=== PATIENT | male | born 1945 | race Caucasian/White ===

== ENCOUNTER 2016-09-23 11:36 | Inpatient (IN) ==
[2016-09-23] MEDS ORDERED: 0.9 % Sodium Chloride 1,000 ML IVC ONE ×2 (11:55→13:48)
--- NOTE | 2016-09-23 12:01 | Emergency Department Note ---
Disposition Clinical Impression: Diabetes mellitus, new onset, Renal insufficiency, Dehydration Hypotension Qualifiers: Hypotension type: unspecified hypotension type Qualified Code(s): I95.9 - Hypotension, unspecified Disposition: Admitted As Inpatient Condition: Good Time of Disposition: 14:26 General Adult HPI - General Chief complaint: ED Recheck/Abnormal Lab/Rx Stated complaint: High Blood Glucose from [facility] Time Seen by Provider: 09/23/16 11:47 Source: patient, family Mode of arrival: ambulatory Limitations: no limitations Nursing Notes Reviewed: Yes Vital Signs Reviewed: Yes - History of Present Illness HPI Narrative: 71-year-old male history of hypertension, hyperlipidemia, CAD s/p CABG presents to the ED with elevated blood sugar. Went to his primary care physician's office Dr. Martel in [place] and was directed to come here for further evaluation. Sugar was reportedly elevated at 500. Says are past year he has been a borderline diabetic with exercise and diet control. Reports over the past several days he has had increased thirst and polyuria. He is urinating every hour as well as some nocturia. Denies any recent illness, fever, cough, shortness of breath, nausea, vomiting or diarrhea. Does report over 20 pounds of weight loss in the past 3 months. Denies any recent travel. He reports he has been cutting down on his ice cream intake and sugars but will have some every so often. Pain Scale: 0 - Related Data Home Medications Medication Instructions Recorded Confirmed Aspirin [Lo-Dose Aspirin EC] 81 mg PO QAM 09/23/16 09/23/16 Clopidogrel [Plavix] 75 mg PO QAM 09/23/16 09/23/16 Isosorbide MONOnitrate (24 HR) 60 mg PO QAM 09/23/16 09/23/16 [Imdur] Lisinopril/Hydrochlorothiazide 1 tab PO QAM 09/23/16 09/23/16 [Zestoretic 20-25 mg Tablet] Metoprolol [Lopressor] 25 mg PO BID 09/23/16 09/23/16 Nitroglycerin [Nitrostat] 0.4 mg SL AD PRN 09/23/16 09/23/16 Omeprazole 20 mg PO QPM 09/23/16 09/23/16 Simvastatin [Zocor] 80 mg PO QPM 09/23/16 09/23/16 Tamsulosin HCl [Flomax] 0.4 mg PO QAM 09/23/16 09/23/16 Allergies Allergy/AdvReac Type Severity Reaction Status Date / Time peanut Allergy Cramping Verified 07/15/16 06:29 of the Muscles All systems ED: reviewed and negative except as stated. Constitutional: Denies: fever, chills Cardiovascular: Denies: chest pain Respiratory: Denies: cough, dyspnea Gastrointestinal: Denies: abdominal pain, nausea, vomiting, diarrhea Genitourinary: Reports: urgency, frequency, other (nocturia) Musculoskeletal: Denies: back pain, neck pain Integumentary: Denies: rash Endocrine: Reports: fatigue, polydipsia, polyuria Past Medical History - Past Medical History Attestation: Yes The following information was validated with the patient. Source: patient Medical history: Reports: coronary artery disease, GERD, hyperlipidemia, hypertension Psychiatric history: Reports: no psych history - Social History Smoking Status: Never smoker Smokeless Tobacco Status: No Alcohol use: Reports: none Drug use: Reports: none Physical Exam - General Limitations: no limitations General appearance: alert, in no apparent distress, obese - Head Head exam: atraumatic, normocephalic, normal inspection - Eye Eye exam: Present: normal appearance, PERRL, EOMI - ENT ENT exam: normal exam, normal oropharynx, mucous membranes moist - Neck Neck exam: Present: normal inspection, full ROM, trachea midline - Chest Chest inspection: Present: normal inspection, symmetric chest wall rise, other ( midline incision consistent with bypass) - Respiratory Respiratory exam: Present: normal lung sounds bilaterally. Absent: respiratory distress, wheezes - Cardiovascular Cardiovascular exam: Present: regular rate, normal rhythm, normal heart sounds - Abdominal Exam Abdominal exam: Present: soft (obese), Non-Tender, normal bowel sounds, scar ( midline from prior colectomy), other (Psoriasis). Absent: tenderness, distention, guarding, rebound, rigidity - Extremities Exam Extremities exam: Present: normal inspection, full ROM, normal capillary refill. Absent: tenderness, pedal edema, calf tenderness - Neurological Exam Neurological exam: Present: alert, oriented X3 - Psychiatric Psychiatric exam: Present: normal affect, normal mood Course Course Narrative: 71-year-old male presents with elevated blood sugar. Denies any recent illness. Reports fatigue, polydipsia and polyuria. Patient is afebrile here. He is tachycardic. He appears in no acute distress. Does report 20 pound weight loss in the past 3 months. Lungs are clear auscultation bilaterally. Heart's regular rate and rhythm. Abdomen is soft nontender nondistended. Check basic labs, troponin, EKG. Surname ketones ordered. We will give him fluids and likely admit. - Consultations Consultation #1: Spoke with on-call hospitalist sebastian Whittington to admit for new onset diabetes, hypotension, dehydration, renal insufficiency. No further orders at this time Time: 14:25 Vital Signs Temperature 97.5 F L 09/23/16 11:37 Pulse Rate 69 09/23/16 11:37 Respiratory Rate 18 09/23/16 11:37 Blood Pressure 91/60 09/23/16 11:37 O2 Sat by Pulse Oximetry 99 09/23/16 11:37 Temperature 97.5 F L 09/23/16 11:37 Pulse Rate 87 09/23/16 15:27 Respiratory Rate 16 09/23/16 15:51 Blood Pressure 95/61 09/23/16 15:51 O2 Sat by Pulse Oximetry 97 09/23/16 15:27 Oxygen Delivery Oxygen Delivery Room Air Medical Decision Making - MDM Narrative Medical decision making narrative: I examined this patient and my medical decision-making was reviewed with the PEDIATRIC NURSE/PA/Advanced Practice Nurse/Resident Physician. I agree with the documented findings, disposition and treatment plan as described except to the extent set forth below. Evaluate this patient with Dr. Ferro, I agree with his evaluation and management plan, supervisor production managing care of the patient at stay. Patient presented his family doctor's office today he has had been very dries been losing some weight. History of elevated A1c but not true diabetic. Today at the family practice office his sugar was over 500 according to the patient. Patient said he is very thirsty. Denies any other changes. His states he eats a lot of things he should not. Where checking labs here EKG most likely will need admission. Goals to make sure he is not in DKA. It does appear that he probably is new onset diabetes. 1246 hrs., patient's blood pressure is increasing with fluids. Lab called his blood sugar 773. Bicarbonate 22, beta hydroxybutyrate is positive. This is probably early DKA. I started him on insulin infusion, fluids. And wait for the rest of his labs and admit. He is in agreement with plan. Chest X-Ray 09/23/16 11:55 IMPRESSION: 1. Stable mild enlargement of the cardiac silhouette. No superimposed acute pulmonary abnormality. D/ / Lester Hoffman MD / Lester Hoffman MD Interpreting Provider: Lester Hoffman MD 1330 hrs.: Patient's blood pressures over 100 now. He is not acidotic on his VBG. His creatinine has elevated. dehydration as hypotension, dehydration, acute kidney injury, and new onset diabetes. Reglan bring him into the hospital. He is in agreement with this plan. Patient's critical care time Separately billable procedures is 30 minutes. - Medical Records Medical records reviewed: Yes I reviewed the patient's medical records. - Lab Data Lab results reviewed: Yes I reviewed the patient's lab results. Result diagrams: 09/23/16 12:16 09/23/16 12:16 Lab Results 09/23/16 09/23/16 09/23/16 Range/Units 12:16 12:16 12:16 WBC 14.0 H (4.3-11.1) K/mcL RBC 5.57 H (4.19-5.50) M/mcL Hgb 17.1 H (12.9-16.9) g/dL Hct 49.2 (37.5-50.1) % MCV 88.3 (83.0-100.0) fL MCH 30.7 (28.0-33.3) pg MCHC 34.8 (31.6-35.5) g/dL RDW 11.9 (11.5-14.5) % Plt Count 322 (140-400) K/mcL MPV 10.9 (9.4-12.4) fL Immature Gran % 0.5 (0-4) % Seg Neutrophils % 73.7 % Lymphocytes % 18.2 % Monocytes % 6.5 % Eosinophils % 0.5 % Basophils % 0.6 % Neutrophils # 10.3 H (1.6-8.9) K/mcL Lymphocytes # 2.6 (0.6-4.6) K/mcL Monocytes # 0.9 (0.0-1.3) K/mcL Eosinophils # 0.1 (0.0-0.6) K/mcL Basophils # 0.1 (0.0-0.2) K/mcL Immature Plt Fraction 5.9 (1.1-6.1) % VBG pH (7.32-7.42) pH Units VBG pCO2 (41-51) mmHg VBG pO2 (25-40) mmHg VBG HCO3 (21-27) mEq/L Sodium 127 L (136-145) mEq/L Potassium 4.1 (3.5-4.5) mEq/L Chloride 88 L (98-109) mEq/L Carbon Dioxide 22 (19-29) mEq/L BUN 25 (8-26) mg/dL Creatinine 2.17 H (0.72-1.25) mg/dL Est GFR ( Amer) 36 L (> 60) Est GFR (Non-Af Amer) 30 L (> 60) BUN/Creatinine Ratio 12 (6-26) Glucose 775 H* (70-99) mg/dL POC Glucose (58-89) Calculated Osmolality 306 H (280-300) Calcium 9.2 (8.6-10.8) mg/dL Total Bilirubin 1.4 H (0.2-1.2) mg/dL AST 18 (5-34) Units/L ALT 19 (0-55) Units/L Alkaline Phosphatase 90 (38-126) Units/L Troponin I 0.01 (0-0.03) ng/mL Serum Total Protein 6.8 (6.0-8.3) g/dL Albumin 3.8 (3.5-5.0) g/dL Globulin 3.0 (2.4-3.5) g/dL Albumin/Globulin Ratio 1.3 (1.1-2.2) Beta-Hydroxybutyric Acd > 2.00 H (0.02-0.27) mmol/L 09/23/16 09/23/16 09/23/16 Range/Units 13:13 14:14 15:06 WBC (4.3-11.1) K/mcL RBC (4.19-5.50) M/mcL Hgb (12.9-16.9) g/dL Hct (37.5-50.1) % MCV (83.0-100.0) fL MCH (28.0-33.3) pg MCHC (31.6-35.5) g/dL RDW (11.5-14.5) % Plt Count (140-400) K/mcL MPV (9.4-12.4) fL Immature Gran % (0-4) % Seg Neutrophils % % Lymphocytes % % Monocytes % % Eosinophils % % Basophils % % Neutrophils # (1.6-8.9) K/mcL Lymphocytes # (0.6-4.6) K/mcL Monocytes # (0.0-1.3) K/mcL Eosinophils # (0.0-0.6) K/mcL Basophils # (0.0-0.2) K/mcL Immature Plt Fraction (1.1-6.1) % VBG pH 7.35 (7.32-7.42) pH Units VBG pCO2 51 (41-51) mmHg VBG pO2 19 L (25-40) mmHg VBG HCO3 28.2 H (21-27) mEq/L Sodium (136-145) mEq/L Potassium (3.5-4.5) mEq/L Chloride (98-109) mEq/L Carbon Dioxide (19-29) mEq/L BUN (8-26) mg/dL Creatinine (0.72-1.25) mg/dL Est GFR ( Amer) (> 60) Est GFR (Non-Af Amer) (> 60) BUN/Creatinine Ratio (6-26) Glucose (70-99) mg/dL POC Glucose 557 H* 512 H* (58-89) Calculated Osmolality (280-300) Calcium (8.6-10.8) mg/dL Total Bilirubin (0.2-1.2) mg/dL AST (5-34) Units/L ALT (0-55) Units/L Alkaline Phosphatase (38-126) Units/L Troponin I (0-0.03) ng/mL Serum Total Protein (6.0-8.3) g/dL Albumin (3.5-5.0) g/dL Globulin (2.4-3.5) g/dL Albumin/Globulin Ratio (1.1-2.2) Beta-Hydroxybutyric Acd (0.02-0.27) mmol/L - Radiology Data Radiology results reviewed: Yes I reviewed the patient's radiology results. Chest X-Ray 09/23/16 11:55 IMPRESSION: 1. Stable mild enlargement of the cardiac silhouette. No superimposed acute pulmonary abnormality. D/ / Lester Hoffman MD / Lester Hoffman MD Interpreting Provider: Lester Hoffman MD - EKG Data EKG #1 EKG attestation: Yes I reviewed and interpreted this EKG. EKG results narrative: EKG performed 1158 sinus tachycardia 10 1 bpm with left axis deviation, there are no ST elevations or depressions, no T-wave inversions. Intervals are within normal limits MN interval 146 QRS 104 QT QTC 352 410. Compared to old EKG performed 05/12/2013 shows consistent findings normal sinus rhythm with similar ST T-wave changes. No acute ischemic changes.
[2016-09-23 12:25] LABS: Basophils # 0.1 K/mcL (0.0-0.2); Basophils % 0.6 %; Eosinophils # 0.1 K/mcL (0.0-0.6); Eosinophils % 0.5 %; Hematocrit 49.2 % (37.5-50.1); Hemoglobin 17.1 g/dL (12.9-16.9); Immature Granulocytes % 0.5 % (0-4); Immature Platelets 5.9 % (1.1-6.1); Lymphocytes # 2.6 K/mcL (0.6-4.6); Lymphocytes % 18.2 %; Mean Corpuscular HGB Conc 34.8 g/dL (31.6-35.5); Mean Corpuscular Hemoglobin 30.7 pg (28.0-33.3); Mean Corpuscular Volume 88.3 fL (83.0-100.0); Mean Platelet Volume 10.9 fL (9.4-12.4); Monocytes # 0.9 K/mcL (0.0-1.3); Monocytes % 6.5 %; Neutrophils # 10.3 K/mcL (1.6-8.9); Platelet Count 322 K/mcL (140-400); Red Blood Count 5.57 M/mcL (4.19-5.50); Red Cell Distribution Width 11.9 % (11.5-14.5); Segmented Neutrophils % 73.7 %
[2016-09-23 12:30] LABS: Beta-Hydroxybutyric Acid > 2.00 mmol/L (0.02-0.27)
[2016-09-23 12:38] LABS: Alanine Aminotransferase 19 Units/L (0-55); Albumin 3.8 g/dL (3.5-5.0); Albumin/Globulin Ratio 1.3 (1.1-2.2); Alkaline Phosphatase 90 Units/L (38-126); Aspartate Amino Transferase 18 Units/L (5-34); BUN/Creatinine Ratio 12 (6-26); Bilirubin,Total 1.4 mg/dL (0.2-1.2); Blood Urea Nitrogen 25 mg/dL (8-26); Calcium 9.2 mg/dL (8.6-10.8); Carbon Dioxide 22 mEq/L (19-29); Chloride 88 mEq/L (98-109); Osmolality,Calculated 306 (280-300); Potassium 4.1 mEq/L (3.5-4.5); Sodium 127 mEq/L (136-145); Total Protein 6.8 g/dL (6.0-8.3); eGFR For African Americans 36 (> 60); eGFR For Non-African Americans 30 (> 60)
[2016-09-23 12:39] LABS: Glucose 775 mg/dL (70-99)
[2016-09-23] MEDS ORDERED: *HR* Dextrose 50 % in Water (Syg) 50 ML SYRINGE IVP PRN ×2 (12:43→16:04)
[2016-09-23] MEDS ORDERED: Insulin Human Regular 100 UNIT in 0.9 % Sodium Chloride 100 ML IVC SCH ×2 (12:45→16:15)
[2016-09-23 13:20] LABS: VBG HCO3 28.2 mEq/L (21-27); VBG PH 7.35 pH Units (7.32-7.42)
--- NOTE | 2016-09-23 15:50 | Internal Med History&Physical ---
Date of Encounter: 09/23/16 Time of Encounter: 15:46 Assessment and Plan (1) Uncontrolled type 2 diabetes mellitus Current visit: Yes Status: Acute Blood glucose was 775 on presentation to the emergency department with evidence of severe dehydration and altered R abnormalities, however there is no convincing evidence for DKA as the venous pH is within normal range at 7.35 and sodium bicarbonate is 22, also within normal range. We will treat the patient with IV fluids and IV insulin drip per protocol. Once the blood glucose goes below 200 was started Levemir weight based and insulin sliding scale. Qualifiers: Diabetes mellitus complication status: without complication Diabetes mellitus fci insulin use: without fci use Qualified Code(s): E11.65 - Type 2 diabetes mellitus with hyperglycemia (2) Acute kidney injury Current visit: Yes Status: Acute This is secondary to severe dehydration with a creatinine of 2.25 increased for normal baseline of 1.0 and January 2016. We will treat him with IV fluids and monitor BUN and creatinine closely. Stop lisinopril. Avoid nephrotoxins. If kidney function returns to baseline no further workup is needed. (3) Essential hypertension Current visit: Yes Status: Acute Stop oral blood pressure medication due to hypotension secondary to dehydration. Once the blood pressure stabilizes we can reintroduce the metoprolol. I would hold the lisinopril due to to the acute kidney injury, I would also hold HCTZ on discharge. (4) Coronary artery disease Current visit: Yes Status: Acute Continue with aspirin Plavix and 4 and simvastatin. There is no chest pain, no evidence of ACS. His EKG is nondiagnostic however does have some nonspecific changes and therefore we will trend troponin. Qualifiers: Coronary Disease-Associated Artery/Lesion type: bypass graft [place] vs. transplanted heart: [place] heart Associated angina: without angina Qualified Code(s): I25.810 - Atherosclerosis of coronary artery bypass graft(s) without angina pectoris (5) DVT prophylaxis Current visit: Yes Status: Acute Will use subcutaneous heparin. (6) Diabetes mellitus, new onset Current visit: Yes Status: Acute telehealth nurse educator consult. Start diabetic diet. Insulin drip as above. (7) Dehydration Current visit: Yes Status: Acute Severe dehydration indicated by hemoconcentration with hemoglobin above 17 and elevated creatinine of 2.5 from a baseline of 1.0. We will treat this with IV fluids. He had received 2 L of normal saline and EGD will continue with normal saline at 200 mL per hour. Encouraged oral hydration. The patient is at high risk for morbidity mortality and complications due to treatment with insulin infusion which requires frequent blood glucose monitoring. Internal Medicine - H&P: HPI Chief complaint: High blood glucose Admitted From: Emergency Dept Plans for Post Hospital Care: Home History of present illness: Mr. Galarza is a 71 year old male with past medical history significant for hypertension coronary artery disease status post CABG who presented to the hospital for evaluation of high blood glucose. He states that for the last 4 weeks he has had progressive generalized weakness associated with increased thirst, increased urination and increased need for water intake. He reports a 25 pound unintentional weight loss over the last 3 months. She has been told by his primary care physician that he is borderline diabetic but his never taken any medication for it. Today he saw his family doctor and was told that his blood glucose was greater than 500 and he was referred for evaluation in the emergency department. 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 Denies chest pain and shortness of breath. Denies any recent upper respiratory tract infection. Workup done in the emergency department revealed a blood glucose of 775 and elevated creatinine of 2.25. He was given IV fluids and started on insulin drip. A 10 point review of systems was negative except as above. Past medical history as above Family history was reviewed and found to be noncontributory Past Med Surg Social Fam HX - Past Medical History Medical history: coronary artery disease, GERD, hyperlipidemia, hypertension Psychiatric history: no psych history - Social History Smoking Status: Never smoker Smokeless Tobacco Status: No Alcohol use: none Drug use: none Internal Medicine - H&P: Meds Aspirin [Lo-Dose Aspirin EC] 81 mg PO QAM 09/23/16 [History] Clopidogrel [Plavix] 75 mg PO QAM 09/23/16 [History] Isosorbide MONOnitrate (24 HR) [Imdur] 60 mg PO QAM 09/23/16 [History] Lisinopril/Hydrochlorothiazide [Zestoretic 20-25 mg Tablet] 1 tab PO QAM [History] Metoprolol [Lopressor] 25 mg PO BID 09/23/16 [History] Nitroglycerin [Nitrostat] 0.4 mg SL AD PRN 09/23/16 [History] Omeprazole 20 mg PO QPM 09/23/16 [History] Simvastatin [Zocor] 80 mg PO QPM 09/23/16 [History] Tamsulosin HCl [Flomax] 0.4 mg PO QAM 09/23/16 [History] Allergies peanut Allergy (Verified 07/15/16 06:29) Cramping of the Muscles All Systems PM: A 10-system review of systems was performed and is negative for pertinent findings except as documented above in the HPI. - Constitutional Vitals: Temp Pulse Resp BP Pulse Ox 97.5 F L 87 16 93/75 97 09/23/16 11:37 09/23/16 15:27 09/23/16 15:27 09/23/16 15:27 09/23/16 15:27 - Head Head exam: Present: atraumatic, normocephalic - Eye Eye exam: Present: PERRL, conjuntiva pink, sclera anicteric Pupils: Present: PERRL - Respiratory Respiratory exam: Present: CTAB. Absent: accessory muscle use, rales, rhonchi, wheezes - Cardiovascular Cardiovascular exam: Present: RRR, +S1, +S2. Absent: diastolic murmur, gallop, rubs, systolic murmur - GI/Abdominal GI/Abdominal exam: Present: normal bowel sounds, soft, no peritoneal signs. Absent: distended, tenderness - Extremities Exam Extremities exam: Present: warm, radial pulses palpable and symetrical. Absent : calf tenderness, cyanotic, pedal edema - Neurological Exam Neurological exam: Present: CN II-XII intact, oriented X3, no focal deficits. Absent: pronater drift, facial droop, speech deficit - Skin Additional comments: Psoriatic rash on the abdomen Internal Med - H&P Results - Labs CBC & Chem 7: 09/23/16 12:16 09/23/16 12:16 - EKG Data -: EKG Interpreted by Myself (Sinus tachycardia 1 1 bpm, left axis deviation, [address] depressions in V5 a) - EKG Data EKG comments: 09/23/16 15:51 Sinus tachycardia 1 10 bpm, left axis deviation, [address] depressions in V5 and V6, unchanged from March 2013.
[2016-09-23] MEDS ORDERED: Acetaminophen 325 MG TABLET PO PRN (16:01)
[2016-09-23] MEDS ORDERED: 0.9 % Sodium Chloride 1,000 ML ONE (16:13)
[2016-09-23] MEDS: 0.9 % Sodium Chloride 1,000 ML IVC SCH ×2 (16:25→21:09)
[2016-09-23 18:27] LABS: Bilirubin,Urine Negative (Negative); Blood,Urine Negative (Negative); Clarity,Urine Clear (Clear); Color,Urine Yellow (Yellow); Glucose,Urine (UA) >=1000 mg/dL (Normal); Ketones,Urine Negative (Negative); Leukocyte Esterase,Urine Negative (Negative); Nitrite,Urine Negative (Negative); Protein,Urine Negative (Neg-Trace); Specific Gravity,Urine > 1.030 (1.010-1.025); Urobilinogen,Urine Normal (Normal)
[2016-09-23] MEDS: *HR* Heparin 5,000 UNIT/ML VIAL SQ SCH (18:50)
--- NOTE | 2016-09-23 19:26 | Electrocardiograph Report ---
[place] [facility] Test Date: 2016-09-23 Pat Name: Asad Galarza Department: [id number] Room: 2NE27 Gender: M Youth Worker: : 1945 Requested By: David Dorsey Order Number: [id number] Reading MD: Kelly Bejarano DO Measurements Intervals [place] Rate: 101 P: 40 PA: 146 QRS: -38 QRSD: 104 T: 55 QT: 352 QTc: 410 Interpretive Statements SINUS TACHYCARDIA MARKED LEFT AXIS DEVIATION NONSPECIFIC ST \T\ T-WAVE ABNORMALITY Electronically Signed On 09-23-2016 19:25:10 EDT by Kelly Bejarano DO
[2016-09-24] MEDS: 0.9 % Sodium Chloride 1,000 ML IVC SCH (03:11)
[2016-09-24] MEDS: *HR* Heparin 5,000 UNIT/ML VIAL SQ SCH ×2 (05:12→17:28)
[2016-09-24 06:19] LABS: Basophils # 0.2 K/mcL (0.0-0.2); Basophils % 1.2 %; Eosinophils # 0.5 K/mcL (0.0-0.6); Eosinophils % 4.3 %; Hematocrit 42.9 % (37.5-50.1); Hemoglobin 15.2 g/dL (12.9-16.9); Immature Granulocytes % 0.3 % (0-4); Lymphocytes # 4.2 K/mcL (0.6-4.6); Lymphocytes % 34.3 %; Mean Corpuscular HGB Conc 35.4 g/dL (31.6-35.5); Mean Corpuscular Hemoglobin 31.7 pg (28.0-33.3); Mean Corpuscular Volume 89.6 fL (83.0-100.0); Mean Platelet Volume 10.9 fL (9.4-12.4); Monocytes # 0.9 K/mcL (0.0-1.3); Neutrophils # 6.5 K/mcL (1.6-8.9); Platelet Count 257 K/mcL (140-400); Red Blood Count 4.79 M/mcL (4.19-5.50); Segmented Neutrophils % 52.9 %
[2016-09-24 06:34] LABS: BUN/Creatinine Ratio 25 (6-26); Blood Urea Nitrogen 25 mg/dL (8-26); Carbon Dioxide 25 mEq/L (19-29); Glucose 82 mg/dL (70-99); Magnesium 1.7 mg/dL (1.6-2.6); Osmolality,Calculated 289 (280-300); eGFR For African Americans > 60 (> 60); eGFR For Non-African Americans > 60 (> 60)
[2016-09-24 06:37] LABS: Chloride 105 mEq/L (98-109); Potassium 2.9 mEq/L (3.5-4.5); Sodium 138 mEq/L (136-145)
[2016-09-24] MEDS ORDERED: Dextrose Gel 15 GM PO PRN ×2 (08:32)
[2016-09-24] MEDS ORDERED: *HR* Dextrose 50 % in Water (Syg) 50 ML SYRINGE IVP PRN (08:32)
[2016-09-24] MEDS ORDERED: D5% in Water 1,000 ML IVC PRN (08:32)
[2016-09-24] MEDS ORDERED: Potassium Chloride 40 MEQ, Lidocaine 1% 2 ML in D5% in Water 500 ML IVPB ONE (08:47)
--- NOTE | 2016-09-24 08:56 | Internal Med Progress Note ---
<Ron Rubio - Last Filed: 09/24/16 14:25> Date of Encounter: 09/23/16 Time of Encounter: 08:56 - Assessment and plan (1) Uncontrolled type 2 diabetes mellitus Current Visit: Yes Status: Acute Assessment and plan: Patient with reported history of prediabetic glucose levels for many years controlled with exercise and diet was seen at his PCP and determined to have elevated blood sugars in the 500s. Patient presented with complaints of polyuria, nocturia, polydypsia, and weight loss. Patient and report patient has been eating large bowls of ice cream and most recently large bowls of fruit salad over the past week. In addition, they recently had a homemade pie that was distastefully too sweet. Patient was found to have elevated blood glucose of 775 upon arrival to the ED along with evidence of severe dehydration. VBG revealed pH 7.35, pCO2 51, bicarb 22, beta hydroxybutyrate >2.0. Patient was treated with IVF and IV insulin drip per protocol. Blood sugars have been controlled between mid 80s to <200 for the past couple hours. A1C is 13.9 Patient to transition to levemir based on weight dosing and insulin sliding scale. Patient refuses insulin therapy as an outpatient and would like to try oral medications. Counseled patient and family regarding diabetes for greater than 15 minutes. Brewery Representative consulted Continue Diabetic diet Will start appropriate oral medications prior to discharge. C-peptide ordered. Qualifiers: Diabetes mellitus complication status: without complication Diabetes mellitus shelter insulin use: without exterminator use Qualified Code(s): E11.65 - Type 2 diabetes mellitus with hyperglycemia (2) Dehydration Current Visit: Yes Status: Acute Assessment and plan: Resolved. Likely secondary to uncontrolled diabetes complications. (3) Acute kidney injury Current Visit: Yes Status: Resolved Assessment and plan: Cr elevated at 2.17 upon arrival to ED. Patient received IVF and repeat labs this morning revealed Cr 1.01 KRISTINE likely secondary to dehydration in the setting of uncontrolled type II diabetes. Continue to monitor. Okay to resume home bp medications including lisinopril. (4) Hypokalemia Current Visit: Yes Status: Acute Assessment and plan: Potassium this morning at 2.9. Had noted blood sugar of 775 and was started on IVF and Insulin drip overnight, now discontinued. Hypokalemia secondary to intracellular shifting. 40mEq IV and 40mEq PO ordered. Continue to monitor and replete as necessary. (5) Psoriasis Current Visit: Yes Status: Acute Assessment and plan: History of psoriasis. Noted rash over elbows, abdomen, and lower extremities. Patient reports he was prescribed over 30 years ago some topical steroid medications. Currently only using OTC regular lotion, no steroid creams, no oral steroids. (6) Essential hypertension Current Visit: Yes Status: Acute Assessment and plan: Patient was hypotensive upon arrival to the ED. Bp at 121/83 currently after IVF and diabetic diet. Resume home meds for chronic disease management. (7) Coronary artery disease Current Visit: Yes Status: Acute Assessment and plan: Patient with a history of CAD s/p CABG. Continue home medications for chronic disease management. Qualifiers: Coronary Disease-Associated Artery/Lesion type: bypass graft [place] vs. transplanted heart: [place] heart Associated angina: without angina Qualified Code(s): I25.810 - Atherosclerosis of coronary artery bypass graft(s) without angina pectoris (8) DVT prophylaxis Current Visit: Yes Status: Acute Assessment and plan: Heparin sq for dvt ppx - Subjective Interval history: Patient is frustrated this morning because the staff and physicians tell him different things about his plan of care and he feels this admission because of his hyperglycemia is ridiculous. Patient otherwise has no new complaints and reports that he has only urinated twice since admission and does not feel thirsty like he did when he initially arrived. Patient reports hearing loss and does not have his hearing aids with him. Patient denies fevers, chills, sweats, headaches, changes in vision, nausea, vomiting, excessive thirsty, chest pain, shortness of breath, abdominal pain, polyuria, nocturia, changes in bowels, weakness, or loss of sensation. - Constitutional Vitals: Temp Pulse Resp BP Pulse Ox 97.7 F 73 16 121/83 94 L 09/24/16 07:00 09/24/16 07:00 09/24/16 07:00 09/24/16 07:00 09/24/16 07:00 General appearance: Present: A&O X 3, no acute distress, answers questions appropriately - Head Head exam: Present: atraumatic, normal inspection, normocephalic - Eye Eye exam: Present: normal appearance - ENT ENT exam: Present: mucous membranes moist, normal exam, normal external ear exam , normal oropharynx - Neck Neck exam general surgery: Present: full ROM, normal inspection, supple, trachea midline. Absent: tenderness - Respiratory Respiratory exam: Present: CTAB. Absent: rales, rhonchi, wheezes - Cardiovascular Cardiovascular exam: Present: RRR, +S1, +S2 - GI/Abdominal GI/Abdominal exam: Present: normal bowel sounds, soft. Absent: distended, guarding, tenderness - Extremities Exam Extremities exam: Present: full ROM, warm. Absent: pedal edema, tenderness - Neurological Exam Neurological exam: Present: alert, normal gait, oriented X3, no focal deficits, strengths equal and symetr throughout. Absent: facial droop, speech deficit - Skin Skin exam: Present: dry, rash (psoriatic rash noted over elbows, abdomen, and lower extremities.), warm Internal Medicine: Result - Labs CBC & Chem 7: 09/24/16 05:41 09/24/16 05:41 Labs: Short CBC 09/24/16 Range/Units 05:41 WBC 12.3 H (4.3-11.1) K/mcL Hgb 15.2 D (12.9-16.9) g/dL Hct 42.9 (37.5-50.1) % Plt Count 257 (140-400) K/mcL Neutrophils # 6.5 (1.6-8.9) K/mcL BMP 09/24/16 05:41 Sodium 138 D Potassium 2.9 L D Chloride 105 D Carbon Dioxide 25 BUN 25 Creatinine 1.01 D Glucose 82 Calcium 8.0 L Cardiac Enzymes 09/23/16 09/23/16 09/24/16 Range/Units 18:42 21:58 05:41 Troponin I 0.00 0.00 0.01 (0-0.03) ng/mL Urine 09/23/16 Range/Units 18:18 Urine Color Yellow (Yellow) Urine Clarity Clear (Clear) Urine pH 6.0 (5.0-8.0) pH Units Ur Specific Gunter > 1.030 H (1.010-1.025) Urine Protein Negative (Neg-Trace) mg/dL Urine Glucose (UA) >=1000 H (Normal) mg/dL Consult Discharge Plan - Plan Referrals: Dina Martel MD [Primary Care Provider] - <Dale Trejo P - Last Filed: 09/24/16 17:51> Date of Encounter: 09/23/16 - Constitutional Vitals: Temp Pulse Resp BP Pulse Ox 97.8 F 83 18 115/85 96 09/24/16 16:55 09/24/16 16:55 09/24/16 16:55 09/24/16 16:55 09/24/16 16:55 Internal Medicine: Result - Labs CBC & Chem 7: 09/24/16 05:41 09/24/16 14:17 Labs: Short CBC 09/24/16 Range/Units 05:41 WBC 12.3 H (4.3-11.1) K/mcL Hgb 15.2 D (12.9-16.9) g/dL Hct 42.9 (37.5-50.1) % Plt Count 257 (140-400) K/mcL Neutrophils # 6.5 (1.6-8.9) K/mcL BMP 09/24/16 09/24/16 05:41 14:17 Sodium 138 D Potassium 2.9 L D 3.6 Chloride 105 D Carbon Dioxide 25 BUN 25 Creatinine 1.01 D Glucose 82 Calcium 8.0 L Cardiac Enzymes 09/23/16 09/23/16 09/24/16 Range/Units 18:42 21:58 05:41 Troponin I 0.00 0.00 0.01 (0-0.03) ng/mL Urine 09/23/16 Range/Units 18:18 Urine Color Yellow (Yellow) Urine Clarity Clear (Clear) Urine pH 6.0 (5.0-8.0) pH Units Ur Specific Gunter > 1.030 H (1.010-1.025) Urine Protein Negative (Neg-Trace) mg/dL Urine Glucose (UA) >=1000 H (Normal) mg/dL - Attending Attestation I examined this patient and my medical decision-making was reviewed with the HOGSHEAD OPENER/PA/Advanced Practice Nurse/Resident Physician. I agree with the documented findings, disposition and treatment plan as described except to the extent set forth below.
[2016-09-24] MEDS: Aspirin Enteric Coated 81 MG Tablet PO SCH (09:08)
[2016-09-24] MEDS: Isosorbide MONOnitrate (24 HR) 60 MG TAB.ER.24H PO SCH (09:09)
[2016-09-24 09:50] LABS: Hemoglobin A1C 13.9 %
[2016-09-24] MEDS: Insulin LISPRO 300 UNITS/3 ML VIAL SQ SCH ×2 (11:31→17:30)
[2016-09-24] MEDS ORDERED: Insulin LISPRO 300 UNITS/3 ML VIAL SQ SCH (21:00)
[2016-09-25] MEDS: *HR* Heparin 5,000 UNIT/ML VIAL SQ SCH (05:30)
[2016-09-25 07:07] LABS: BUN/Creatinine Ratio 14 (6-26); Blood Urea Nitrogen 16 mg/dL (8-26); Calcium 8.3 mg/dL (8.6-10.8); Carbon Dioxide 22 mEq/L (19-29); Chloride 107 mEq/L (98-109); Glucose 256 mg/dL (70-99); Osmolality,Calculated 288 (280-300); Sodium 134 mEq/L (136-145); eGFR For African Americans > 60 (> 60); eGFR For Non-African Americans > 60 (> 60)
[2016-09-25] MEDS: Isosorbide MONOnitrate (24 HR) 60 MG TAB.ER.24H PO SCH (09:20)
[2016-09-25] MEDS: Insulin LISPRO 300 UNITS/3 ML VIAL SQ SCH ×2 (09:21→13:40)
[2016-09-25] MEDS: Aspirin Enteric Coated 81 MG Tablet PO SCH (09:21)
--- NOTE | 2016-09-25 10:33 | Discharge Summary ---
Addendum entered and electronically signed by Ron Rubio DO 15:45: Additional Instructions Addendum: (copy to be printed and sent with patient on discharge) Follow up with your primary care physician within the next 7 days regarding this hospital stay/diabetes. You have been sent home with medications including Novolin 70/30 and Metformin. Also sent home with script for a glucometer, strips for testing, lancets, and insulin syringes/needles. Your insulin requirement for the past 24 hours was 30 "Units" to control your blood sugars modestly. This is not your goal blood sugar level, you will eventually need adjustments to the total insulin requirement per day. Inject Novolin 10 "Units" before breakfast and Novolin 10 Units before dinner. Take Metformin twice a day. "Units" is not the same as "mL" or milliliters. If you inject 10 mL of insulin with the prescribed insulin, you will develop hypoglycemia which can be a medical emergency. Remember to calculate based on "Units". You have been counseled by a service girl regarding proper diet to follow to control your blood sugars. Check your blood sugar levels for the next 5-7 days and write them in a journal for your Primary care physician to review at your next visit. Check your levels once in the morning when you first wake up before breakfast, 2 hours after breakfast, 2 hours after lunch, 2 hours after dinner, and just prior to going to bed. It is important to keep a record of these levels to determine proper amounts of insulin and prevent hypoglycemic episodes. Hypoglycemia presents as the following: Dizziness, shakiness, hunger, headaches , irritability, palpitations, and in severe cases confusion and possibly coma. Seek medical care if you develop these symptoms or have other concerns. We have attempted to send you home with scripts for Levemir and Humalog/Novolog ; however, your insurance classify these insulins as Tier 3, meaning that they are quite expensive. We have decided to send you home with Novolin 70/30 as a compromise for the cost of medication vs benefits and necessity of insulin. Original Note: <Ron Rubio - Last Filed: 09/25/16 11:16> Date of Encounter: 09/23/16 Time of Encounter: 10:28 - Discharge Diagnosis (1) Uncontrolled type 2 diabetes mellitus Priority: Primary Status: Acute Comments: Patient with reported history of prediabetic glucose levels for many years controlled with exercise and diet was seen at his PCP and determined to have elevated blood sugars in the 500s. Patient presented with complaints of polyuria, nocturia, polydypsia, and weight loss. Patient and report patient has been eating large bowls of ice cream and most recently large bowls of fruit salad over the past week. In addition, they recently had a homemade pie that was distastefully too sweet. Patient was found to have elevated blood glucose of 775 upon arrival to the ED along with evidence of severe dehydration. VBG revealed pH 7.35, pCO2 51, bicarb 22, beta hydroxybutyrate >2.0. Patient was treated with IVF and IV insulin drip per protocol. Blood sugars between 149 - 256 past 24 hours. Required 12 Units with lunch, 10 Units with dinner, no insulin at night, and 8 Units with breakfast. Total daily requirement for modest control = 30 Units. A1C was determined to be 13.9, approximately 352 average glucose Patient seen by nutrition yesterday. Counseled the patient and family regarding diabetes and medications for greater than 15 minutes. Music Mixer consulted to discuss proper use of insulin. Continue diabetic diet. Plan to discharge with metformin 500 bid, Levemir (long) 15 Units at night, and Humalog (short) 5 Units with meals three times a day. Patient to follow up with PCP within the next 7 days regarding this hospital stay. Scripts for glucometer, strips, lancets also sent. Qualifiers: Diabetes mellitus complication status: without complication Diabetes mellitus detention insulin use: without detention use Qualified Code(s): E11.65 - Type 2 diabetes mellitus with hyperglycemia (2) Dehydration Priority: Primary Status: Resolved Comments: Resolved. Likely secondary to uncontrolled diabetes complications. (3) Acute kidney injury Priority: Primary Status: Resolved Comments: Resolved. Cr elevated at 2.17 upon arrival to ED. Cr 1.11 this morning. (4) Hypokalemia Priority: Primary Status: Acute Comments: Resolved. (5) Psoriasis Priority: Secondary Status: Chronic Comments: History of psoriasis. Noted rash over elbows, abdomen, and lower extremities. Patient reports he was prescribed over 30 years ago some topical steroid medications. Currently only using OTC regular lotion, no steroid creams, no oral steroids. (6) Essential hypertension Priority: Secondary Status: Chronic Comments: atient was hypotensive upon arrival to the ED. Bp at 125/87 currently. Continue home meds for chronic disease management. (7) Coronary artery disease Priority: Primary Status: Chronic Comments: Continue home meds for chronic disease management. Qualifiers: Coronary Disease-Associated Artery/Lesion type: bypass graft [place] vs. transplanted heart: [place] heart Associated angina: without angina Qualified Code(s): I25.810 - Atherosclerosis of coronary artery bypass graft(s) without angina pectoris - Discharge Medications Prescriptions: Insulin DETEMIR [Levemir Flextouch] 100 unit SQ HS #4 [email or web address] Insulin LISPRO [Humalog Kwikpen U-100] 100 unit SQ TIDAC #3 ml Metformin [Glucophage] 500 mg PO BIDWM #60 tablet Home Medications: Aspirin [Lo-Dose Aspirin EC] 81 mg PO QAM 09/23/16 [History] Clopidogrel [Plavix] 75 mg PO QAM 09/23/16 [History] Isosorbide MONOnitrate (24 HR) [Imdur] 60 mg PO QAM 09/23/16 [History] Lisinopril/Hydrochlorothiazide [Zestoretic 20-25 mg Tablet] 1 tab PO QAM [History] Metoprolol [Lopressor] 25 mg PO BID 09/23/16 [History] Nitroglycerin [Nitrostat] 0.4 mg SL AD PRN 09/23/16 [History] Omeprazole 20 mg PO QPM 09/23/16 [History] Simvastatin [Zocor] 80 mg PO QPM 09/23/16 [History] Tamsulosin HCl [Flomax] 0.4 mg PO QAM 09/23/16 [History] Insulin DETEMIR [Levemir Flextouch] 100 unit SQ HS #4 insuln.pen 09/25/16 [Rx] Insulin LISPRO [Humalog Kwikpen U-100] 100 unit SQ TIDAC #3 ml 09/25/16 [Rx] Metformin [Glucophage] 500 mg PO BIDWM #60 tablet 09/25/16 [Rx] Allergies/Adverse Reactions: Allergies peanut Allergy (Verified 07/15/16 06:29) Cramping of the Muscles Date of admission: 09/23/16 16:01 Primary care physician: Dina Martel, Consults: 09/23/16 16:55 Consult to Nutrition [CONS] Routine Comment: Consulting Provider: NUTRITION Reason for Dietary Consult: PO Supplementation 09/25/16 10:08 Consult to Team Lead [CONS] Routine Comment: behavioral school counselors patient about medications, insulin on d/c Discharging clinician: Dale Trejo (Ron Rubio) Anticipated date of discharge: 09/25/16 - Patient Status Disposition: Home, Self-Care Condition: Good Functional capacity at discharge: independent ambulation Overall status at discharge: patient is progressing back to baseline - Discharge Instructions Instructions: Diabetes Mellitus Type 2 in Adults (DC), Diabetic Hyperglycemia ( DC) Follow Up With: Dina Martel MD [Primary Care Provider] - (Uncontrolled type II dm. Sent home with metformin 500mg bid, levemir 15U qhs, humalog 5U actid, glucometer, strips, and lancets.) Additional Instructions: Follow up with your primary care physician within the next 7 days regarding this hospital stay/diabetes. You have been sent home with medications including Levemir, Humalog, and Metformin. Also sent home with script for a glucometer, strips for testing, and lancets. Your insulin requirement for the past 24 hours was 30 "Units" to control your blood sugars modestly. This is not your goal blood sugar level, you will eventually need adjustments to the total insulin requirement per day. Inject Levemir 15 "Units" before bed time once a day. Inject Humalog 5 "Units" before meals three times a day. Take metformin twice a day. "Units" is not the same as "mL" or milliliters. If you inject 15 mL of insulin with the prescribed insulin pens, you will develop hypoglycemia which can be a medical emergency. Remember to calculate based on "Units". You have been counseled by a service girl regarding proper diet to follow to control your blood sugars. Check your blood sugar levels for the next 5-7 days and write them in a journal for your Primary care physician to review at your next visit. Check your levels once in the morning when you first wake up before breakfast, 2 hours after breakfast, 2 hours after lunch, 2 hours after dinner, and just prior to going to bed. It is important to keep a record of these levels to determine proper amounts of insulin and prevent hypoglycemic episodes. Hypoglycemia presents as the following: Dizziness, shakiness, hunger, headaches , irritability, palpitations, and in severe cases confusion and possibly coma. Seek medical care if you develop these symptoms or have other concerns. - Diet and Activity Activity: resume usual activities as tolerated Diet: diabetic diet, low fat, low cholesterol, low salt diet Interval History: Patient reports doing well overnight, no new complaints. Patient denies fevers , chills, sweats, headaches, lightheadedness, dizziness, nausea, vomiting, chest pain, shortness of breath, abdominal pain, changes in bowels or bladder, polydypsia, polyuria, nocturia, weakness, or loss of sensation. Hospital course: Mr. Galarza is a 71 year old male with history of hypertension, CAD s/p CABG , hyperlipidemia, and psoriasis who presented to the ED due to elevated blood sugars and polyuria, nocturia, polydypsia, and weight loss. Patient was determine to have elevated blood sugar of 775 upon arrival and elevated Cr of 2.25. Labs also revealed elevated beta hydorxybutyrate acid, elevated WBC of 14.0, and essentially normal VBG. Patient was started on IV fluids and IV insulin drip, then switched to sliding scale insulin. Patient tolerated diabetic diet the following morning when blood sugars were between upper 80s and <200. A1C was 13.9. C-peptide was ordered. Nutrition was consulted and clinical trial educator was consulted to discuss proper use of insulin medication. Patient required a total of 30 Units over the past 24 hours for modest control of sugars. Blood glucose was 256 on lab draw this morning. Patient to be discharged with metformin 500mg bid, long acting insulin 15 Units at night, and short acting insuling 5 Units with meals three times a day. Patient also discharge with script for glucometer, strips, and lancets. Patient to follow up with Primary Care Physician regarding this hospital stay/type II diabetes. - Time Spent with Patient Total time spent providing and/or coordinating discharge services: Less than 30 minutes - Constitutional Vitals: Temp Pulse Resp BP Pulse Ox 97.8 F 81 16 125/87 97 09/25/16 07:24 09/25/16 07:24 09/25/16 07:24 09/25/16 07:24 09/25/16 08:00 General appearance: Present: cooperative, A&O X 3, no acute distress, answers questions appropriately - Head Head exam: Present: atraumatic, normal inspection, normocephalic - Eye Eye exam: Present: normal appearance - ENT ENT exam: Present: mucous membranes moist, normal exam, normal external ear exam , normal oropharynx - Neck Neck exam general surgery: Present: full ROM, normal inspection, supple, trachea midline. Absent: tenderness - Respiratory Respiratory exam: Present: CTAB. Absent: rales, rhonchi, wheezes - Cardiovascular Cardiovascular exam: Present: RRR, +S1, +S2 - GI/Abdominal GI/Abdominal exam: Present: normal bowel sounds, soft. Absent: distended, guarding, tenderness - Extremities Exam Extremities exam: Present: full ROM, warm. Absent: pedal edema, tenderness - Neurological Exam Neurological exam: Present: alert, normal gait, oriented X3, no focal deficits, strengths equal and symetr throughout. Absent: facial droop, speech deficit - Skin Skin exam: Present: dry, intact, normal color, rash (psoriatic rash noted over elbows, abdomen, and lower extremities.), warm <Dale Trejo P - Last Filed: 09/25/16 17:41> Date of Encounter: 09/25/16 Date of admission: 09/23/16 16:01 Primary care physician: Dina Martel, Consults: 09/23/16 16:55 Consult to Nutrition [CONS] Routine Comment: Consulting Provider: NUTRITION Reason for Dietary Consult: PO Supplementation 09/25/16 10:08 Consult to Team Lead [CONS] Routine Comment: behavioral school counselors patient about medications, insulin on d/c 09/25/16 14:13 Consult to Line Server [CONS] Routine Reason for SW Consult: Check rx costs Hospital course: Mr. Galarza is a 71 year old male - Time Spent with Patient Total time spent providing and/or coordinating discharge services: - Constitutional Vitals: Temp Pulse Resp BP Pulse Ox 98.2 F 75 18 120/80 97 09/25/16 11:40 09/25/16 11:40 09/25/16 11:40 09/25/16 11:40 09/25/16 11:40 - Attending Attestation I examined this patient and my medical decision-making was reviewed with the GOVERNMENT OPERATIONS CONSULTANT/PA/Advanced Practice Nurse/Resident Physician. I agree with the documented findings, disposition and treatment plan as described except to the extent set forth below.
[2016-09-25 11:44] VITALS: BP 120/80
[2016-09-25] MEDS ORDERED: *HR* Metformin 500 MG TABLET PO SCH ×2 (12:18→17:00)
[2016-09-26] MEDS ORDERED: *HR* Metformin 500 MG TABLET PO ONE (10:21)
== END 2016-09-25 16:30 | disposition home or self-care (01) | DRG 638 ==
LOC: 2NENU 11:36 → EMEROO 11:36 → 2NENU 16:03
PROVIDERS: ADMIT Internal Medicine; ATTEND Internal Medicine

== ENCOUNTER 2019-01-03 09:56 | Inpatient (IN) ==
[2019-01-03] MEDS ORDERED: *HR* Promethazine 25 MG/ML VIAL IVP PRN (13:27)
[2019-01-03] MEDS ORDERED: Ondansetron 4 MG/2 ML VIAL IVP PRN (13:27)
[2019-01-03] MEDS ORDERED: Dextrose Gel 15 GM/37.5 ML TUBE PO PRN ×2 (14:13)
[2019-01-03] MEDS ORDERED: D5% in Water 1,000 ML IVC PRN (14:13)
[2019-01-03] MEDS ORDERED: *HR* Dextrose 50 % in Water (Syg) 50 ML SYRINGE IVP PRN (14:13)
[2019-01-03] MEDS: Pantoprazole 40 MG VIAL IVP SCH (14:29)
[2019-01-03 14:47] LABS: Basophils # 0.1 K/mcL (0.0-0.2); Basophils % 0.4 %; Eosinophils # 0.2 K/mcL (0.0-0.6); Eosinophils % 1.1 %; Hematocrit 36.9 % (37.5-50.1); Hemoglobin 11.5 g/dL (12.9-16.9); Immature Granulocytes % 0.5 % (0-4); Lymphocytes # 1.1 K/mcL (0.6-4.6); Lymphocytes % 7.5 %; Mean Corpuscular HGB Conc 31.2 g/dL (31.6-35.5); Mean Corpuscular Hemoglobin 24.1 pg (28.0-33.3); Mean Corpuscular Volume 77.2 fL (83.0-100.0); Mean Platelet Volume 8.8 fL (9.4-12.4); Monocytes # 1.4 K/mcL (0.0-1.3); Neutrophils # 11.5 K/mcL (1.6-8.9); Platelet Count 547 K/mcL (140-400); Red Blood Count 4.78 M/mcL (4.19-5.50); Red Cell Distribution Width 15.5 % (11.5-14.5); Segmented Neutrophils % 80.5 %; White Blood Count 14.3 K/mcL (4.3-11.1)
[2019-01-03 14:54] LABS: INR 1.5; Prothrombin Time 16.5 Seconds (9.4-12.1)
[2019-01-03 15:07] LABS: BUN/Creatinine Ratio 15 (6-26); Blood Urea Nitrogen 16 mg/dL (8-23); Calcium 8.6 mg/dL (8.6-10.3); Carbon Dioxide 30 mEq/L (23-29); Chloride 98 mEq/L (98-107); Glucose 139 mg/dL (70-105); Osmolality,Calculated 287 (280-300); Potassium 2.9 mEq/L (3.5-5.1); Sodium 137 mEq/L (136-145); eGFR For African Americans > 60 (> 60); eGFR For Non-African Americans > 60 (> 60)
[2019-01-03 15:08] LABS: Albumin 3.3 g/dL (3.5-5.7); Albumin/Globulin Ratio 0.9 (1.1-2.2); Bilirubin,Direct 0.1 mg/dL (0.0-0.2); Bilirubin,Indirect 0.3 mg/dL (0.0-1.2); Bilirubin,Total 0.4 mg/dL (0.3-1.0); Globulin 3.6 g/dL (2.4-3.5); Magnesium 1.5 mg/dL (1.6-2.6); Phosphorous 1.4 mg/dL (2.7-4.5); Total Protein 6.9 g/dL (6.4-8.9)
[2019-01-03] MEDS ORDERED: Potassium Chloride 40 MEQ, Lidocaine 1% 2 ML in D5% in Water 500 ML IVPB ONE (15:46)
[2019-01-03] MEDS ORDERED: Potassium Phosphate 44 MEQ in 0.9 % Sodium Chloride 250 ML IVPB ONE ×2 (15:47→19:45)
[2019-01-03] MEDS ORDERED: Fluconazole 400 MG/200 ML 400 MG/200 ML BAG IVPB ONE (15:57)
[2019-01-03] MEDS ORDERED: Piperacillin/Tazobactam 3.375 GM in 0.9 % Sodium Chloride Mini Bag 100 ML IVPB SCH (16:00)
[2019-01-03] MEDS: *HR* Metoprolol 5 MG/5 ML VIAL IVP SCH ×3 (17:10→23:42)
[2019-01-03] MEDS: Insulin LISPRO 300 UNITS/3 ML VIAL SQ SCH (18:10)
[2019-01-03] MEDS: Nystatin SUSP 5 ML UD.LIQ PO SCH ×2 (20:57)
[2019-01-03] MEDS: Acetaminophen IV 1,000 MG/100 ML INFUS..BTL IV PRN (21:54)
[2019-01-04] MEDS: Insulin LISPRO 300 UNITS/3 ML VIAL SQ SCH ×4 (00:11→22:09)
[2019-01-04] MEDS: Piperacillin/Tazobactam 3.375 GM in 0.9 % Sodium Chloride Mini Bag 100 ML IVPB SCH ×3 (01:00→16:39)
[2019-01-04] MEDS: *HR* Metoprolol 5 MG/5 ML VIAL IVP SCH ×3 (05:51→22:09)
[2019-01-04] MEDS: Acetaminophen IV 1,000 MG/100 ML INFUS..BTL IV PRN (05:51)
[2019-01-04 06:12] LABS: Bilirubin,Urine Negative (Negative); Blood,Urine Negative (Negative); Clarity,Urine Clear (Clear); Color,Urine Yellow (Yellow); Glucose,Urine (UA) Normal (Normal); Ketones,Urine Negative (Negative); Leukocyte Esterase,Urine Negative (Negative); Nitrite,Urine Negative (Negative); Protein,Urine 30 mg/dL (Neg-Trace); Specific Gravity,Urine > 1.030 (1.010-1.025); Urobilinogen,Urine Normal (Normal)
[2019-01-04 06:15] LABS: Bacteria,Urine None Seen per hpf (None-Few); Hyaline Casts,Urine None Seen per lpf (None-Few); Squamous Epithelial Cell,Urine Many per lpf (None-Few)
[2019-01-04] MEDS ORDERED: Fluconazole 200 MG/100 ML 200 MG/100 ML BAG IVPB SCH (09:00)
[2019-01-04] MEDS: Pantoprazole 40 MG VIAL IVP SCH (09:12)
[2019-01-04] MEDS: Nystatin SUSP 5 ML UD.LIQ PO SCH ×4 (09:12→23:20)
[2019-01-04 12:03] LABS: Basophils # 0.1 K/mcL (0.0-0.2); Basophils % 0.4 %; Eosinophils # 0.1 K/mcL (0.0-0.6); Eosinophils % 0.7 %; Hematocrit 34.9 % (37.5-50.1); Hemoglobin 10.9 g/dL (12.9-16.9); Immature Granulocytes % 0.6 % (0-4); Lymphocytes # 1.2 K/mcL (0.6-4.6); Mean Corpuscular HGB Conc 31.2 g/dL (31.6-35.5); Mean Corpuscular Hemoglobin 24.2 pg (28.0-33.3); Mean Corpuscular Volume 77.4 fL (83.0-100.0); Mean Platelet Volume 8.5 fL (9.4-12.4); Monocytes # 1.8 K/mcL (0.0-1.3); Monocytes % 10.8 %; Neutrophils # 13.6 K/mcL (1.6-8.9); Platelet Count 438 K/mcL (140-400); Red Blood Count 4.51 M/mcL (4.19-5.50); Red Cell Distribution Width 15.7 % (11.5-14.5); Segmented Neutrophils % 80.5 %; White Blood Count 16.9 K/mcL (4.3-11.1)
[2019-01-04 12:10] LABS: INR 1.5; Prothrombin Time 16.5 Seconds (9.4-12.1)
[2019-01-04 12:23] LABS: BUN/Creatinine Ratio 13 (6-26); Blood Urea Nitrogen 14 mg/dL (8-23); Calcium 8.2 mg/dL (8.6-10.3); Carbon Dioxide 29 mEq/L (23-29); Chloride 98 mEq/L (98-107); Glucose 127 mg/dL (70-105); Magnesium 1.7 mg/dL (1.6-2.6); Osmolality,Calculated 284 (280-300); Phosphorous 2.3 mg/dL (2.7-4.5); Potassium 3.1 mEq/L (3.5-5.1); Sodium 136 mEq/L (136-145); eGFR For African Americans > 60 (> 60); eGFR For Non-African Americans > 60 (> 60)
[2019-01-04] MEDS ORDERED: Potassium Phosphate 44 MEQ in 0.9 % Sodium Chloride 250 ML IVPB ONE (13:35)
[2019-01-04] MEDS ORDERED: Potassium Chloride 40 MEQ, Lidocaine 1% 2 ML in D5% in Water 500 ML IVPB ONE (13:36)
[2019-01-04] MEDS ORDERED: 0.9 % Sodium Chloride 1,000 ML IVC SCH (15:15)
[2019-01-04] MEDS ORDERED: *HR* Propofol 200 MG/20 ML VIAL IVP ONE (17:40)
[2019-01-04] MEDS ORDERED: *HR* FentaNYL (PF) 100 MCG/2 ML VIAL ONE ×3 (17:40→18:48)
[2019-01-04] MEDS ORDERED: Lidocaine -MPF 2% 2 ML VIAL ONE (17:41)
[2019-01-04] MEDS ORDERED: Lidocaine Jelly 6ml 1 APPL/6 ML JEL.PF.APP ONE (17:50)
[2019-01-04] MEDS ORDERED: *HR* Metoprolol 5 MG/5 ML VIAL IVP ONE (18:44)
[2019-01-04] MEDS ORDERED: Ondansetron 4 MG/2 ML VIAL ONE (18:53)
[2019-01-04] MEDS ORDERED: Acetaminophen IV 1,000 MG/100 ML INFUS..BTL ONE (19:16)
[2019-01-04] MEDS ORDERED: *HR* Dextrose 50 % in Water (Syg) 50 ML SYRINGE IVP PRN (23:12)
[2019-01-04] MEDS ORDERED: Dextrose Gel 15 GM/37.5 ML TUBE PO PRN ×2 (23:12)
[2019-01-04] MEDS ORDERED: *HR* Promethazine 25 MG/ML VIAL IVP PRN (23:12)
[2019-01-04] MEDS ORDERED: Acetaminophen IV 1,000 MG/100 ML INFUS..BTL IV PRN (23:12)
[2019-01-04] MEDS ORDERED: Ondansetron 4 MG/2 ML VIAL IVP PRN (23:12)
[2019-01-04] MEDS ORDERED: D5% in Water 1,000 ML IVC PRN (23:12)
[2019-01-05] MEDS: *HR* Metoprolol 5 MG/5 ML VIAL IVP SCH ×5 (00:15→23:26)
[2019-01-05] MEDS: 0.9 % Sodium Chloride 1,000 ML IVC SCH ×2 (00:25→11:43)
[2019-01-05] MEDS: Piperacillin/Tazobactam 3.375 GM in 0.9 % Sodium Chloride Mini Bag 100 ML IVPB SCH ×2 (00:46→07:51)
[2019-01-05] MEDS: Insulin LISPRO 300 UNITS/3 ML VIAL SQ SCH ×5 (02:28→23:30)
[2019-01-05 05:26] LABS: Basophils # 0.1 K/mcL (0.0-0.2); Basophils % 0.4 %; Eosinophils # 0.3 K/mcL (0.0-0.6); Eosinophils % 1.6 %; Hematocrit 33.6 % (37.5-50.1); Hemoglobin 10.3 g/dL (12.9-16.9); Immature Granulocytes % 0.5 % (0-4); Lymphocytes # 1.1 K/mcL (0.6-4.6); Lymphocytes % 6.2 %; Mean Corpuscular HGB Conc 30.7 g/dL (31.6-35.5); Mean Corpuscular Hemoglobin 24.3 pg (28.0-33.3); Mean Corpuscular Volume 79.4 fL (83.0-100.0); Mean Platelet Volume 8.4 fL (9.4-12.4); Monocytes # 1.9 K/mcL (0.0-1.3); Monocytes % 11.3 %; Neutrophils # 13.7 K/mcL (1.6-8.9); Platelet Count 386 K/mcL (140-400); Red Blood Count 4.23 M/mcL (4.19-5.50); Red Cell Distribution Width 15.7 % (11.5-14.5); White Blood Count 17.2 K/mcL (4.3-11.1)
[2019-01-05 05:45] LABS: BUN/Creatinine Ratio 13 (6-26); Blood Urea Nitrogen 13 mg/dL (8-23); Calcium 7.5 mg/dL (8.6-10.3); Carbon Dioxide 24 mEq/L (23-29); Chloride 103 mEq/L (98-107); Glucose 120 mg/dL (70-105); Magnesium 1.6 mg/dL (1.6-2.6); Osmolality,Calculated 281 (280-300); Potassium 3.2 mEq/L (3.5-5.1); Sodium 135 mEq/L (136-145); eGFR For African Americans > 60 (> 60); eGFR For Non-African Americans > 60 (> 60)
[2019-01-05] MEDS: Nystatin SUSP 5 ML UD.LIQ PO SCH ×4 (09:52→21:39)
[2019-01-05] MEDS: Fluconazole 200 MG/100 ML 200 MG/100 ML BAG IVPB SCH (09:52)
[2019-01-05] MEDS: Pantoprazole 40 MG VIAL IVP SCH (09:53)
[2019-01-05 15:13] LABS: Hepatitis B Surface Antibody < 3.10 mIU/mL
[2019-01-05 15:22] LABS: Hepatitis B Surface Antigen Nonreactive (Nonreactive)
[2019-01-05 15:51] LABS: Hepatitis B Core IgM Nonreactive (Nonreactive)
[2019-01-05] MEDS ORDERED: Potassium Phosphate 44 MEQ in 0.9 % Sodium Chloride 250 ML IVPB ONE (16:43)
[2019-01-05] MEDS ORDERED: Potassium Chloride 20 MEQ, Lidocaine 1% 2 ML in D5% in Water 250 ML IVPB ONE (16:43)
[2019-01-05] MEDS: MetroNIDAZOLE 500 MG/100 ML 500 MG/100 ML BAG IVPB SCH ×2 (17:05→23:37)
[2019-01-05] MEDS: Lidocaine 4% CREAM (LMX) 5 GM TP SCH ×2 (19:00→20:04)
[2019-01-06 00:26] LABS: Adenovirus F 40/41 PCR Not detected (Not detect); Astrovirus PCR Not detected (Not detect); C.difficile Toxin A/B Gene PCR Not detected (Not detect); Campylobacter by PCR Not detected (Not detect); Cryptosporidium by PCR Not detected (Not detect); Cyclospora cayetanensis PCR Not detected (Not detect); E. coli O157 by PCR Not detected (Not detect); Entamoeba histolytica PCR Not detected (Not detect); Enteroaggregative E.coli(EAEC) Not detected (Not detect); Enteropathogenic E.coli(EPEC) Not detected (Not detect); Enterotoxigenic E.coli (ETEC) Not detected (Not detect); Giardia lamblia PCR Not detected (Not detect); Norovirus GI/GII PCR Not detected (Not detect); Plesiomonas shigelloides PCR Not detected (Not detect); Rotavirus A PCR Not detected (Not detect); Salmonella PCR Not detected (Not detect); Sapovirus PCR Not detected (Not detect); Shig/EnteroinvasiveE coli EIEC Not detected (Not detect); Shigalike tox-prod E coli STEC Not detected (Not detect); Vibrio PCR Not detected (Not detect); Vibrio cholerae PCR Not detected (Not detect); Yersinia enterocolitica PCR Not detected (Not detect)
[2019-01-06] MEDS: Lidocaine 4% CREAM (LMX) 5 GM TP SCH ×4 (02:18→20:51)
[2019-01-06 05:29] LABS: Basophils # 0.1 K/mcL (0.0-0.2); Basophils % 0.3 %; Eosinophils # 0.2 K/mcL (0.0-0.6); Eosinophils % 1.4 %; Hematocrit 32.8 % (37.5-50.1); Hemoglobin 9.9 g/dL (12.9-16.9); Immature Granulocytes % 0.8 % (0-4); Lymphocytes # 1.5 K/mcL (0.6-4.6); Lymphocytes % 10.1 %; Mean Corpuscular HGB Conc 30.2 g/dL (31.6-35.5); Mean Corpuscular Hemoglobin 23.5 pg (28.0-33.3); Mean Corpuscular Volume 77.9 fL (83.0-100.0); Mean Platelet Volume 8.9 fL (9.4-12.4); Monocytes # 1.5 K/mcL (0.0-1.3); Monocytes % 10.7 %; Platelet Count 422 K/mcL (140-400); Red Blood Count 4.21 M/mcL (4.19-5.50); Red Cell Distribution Width 15.9 % (11.5-14.5); Segmented Neutrophils % 76.7 %; White Blood Count 14.3 K/mcL (4.3-11.1)
[2019-01-06 05:45] LABS: BUN/Creatinine Ratio 11 (6-26); Blood Urea Nitrogen 10 mg/dL (8-23); Calcium 7.5 mg/dL (8.6-10.3); Carbon Dioxide 25 mEq/L (23-29); Chloride 103 mEq/L (98-107); Glucose 129 mg/dL (70-105); Magnesium 1.6 mg/dL (1.6-2.6); Osmolality,Calculated 281 (280-300); Phosphorous 1.8 mg/dL (2.7-4.5); Potassium 3.1 mEq/L (3.5-5.1); Sodium 135 mEq/L (136-145); eGFR For African Americans > 60 (> 60); eGFR For Non-African Americans > 60 (> 60)
[2019-01-06] MEDS: *HR* Metoprolol 5 MG/5 ML VIAL IVP SCH ×3 (05:56→17:41)
[2019-01-06] MEDS: Insulin LISPRO 300 UNITS/3 ML VIAL SQ SCH ×3 (05:56→18:13)
[2019-01-06] MEDS ORDERED: Potassium Chloride 40 MEQ, Lidocaine 1% 2 ML in D5% in Water 500 ML IVPB ONE (07:02)
[2019-01-06] MEDS ORDERED: Potassium Phosphate 44 MEQ in 0.9 % Sodium Chloride 250 ML IVPB ONE (07:03)
[2019-01-06] MEDS ORDERED: Lidocaine -MPF 1% 5 ML AMPUL INFILT ONE (07:49)
[2019-01-06] MEDS: Aspirin Enteric Coated 81 MG Tablet PO SCH (09:40)
[2019-01-06] MEDS: Isosorbide MONOnitrate (24 HR) 60 MG TAB.ER.24H PO SCH (09:41)
[2019-01-06] MEDS: Pantoprazole 40 MG VIAL IVP SCH (09:42)
[2019-01-06] MEDS: Nystatin SUSP 5 ML UD.LIQ PO SCH ×4 (09:42→20:51)
[2019-01-06] MEDS: Fluconazole 200 MG/100 ML 200 MG/100 ML BAG IVPB SCH (09:46)
[2019-01-06 11:13] LABS: Saccharomyces cerevisiae IgA 94.5 Units (0.0-24.9)
[2019-01-06] MEDS: MetroNIDAZOLE 500 MG/100 ML 500 MG/100 ML BAG IVPB SCH ×2 (11:13→16:14)
[2019-01-06] MEDS ORDERED: D10% in Water 500 ML IVC PRN (14:39)
[2019-01-06] MEDS ORDERED: Clinimix E 5%-15% SOLUTION 2,000 ML with MVI, adult with vitamin K 10 ML IVC SCH (17:00)
[2019-01-07] MEDS: Insulin LISPRO 300 UNITS/3 ML VIAL SQ SCH ×4 (00:16→18:06)
[2019-01-07] MEDS: *HR* Metoprolol 5 MG/5 ML VIAL IVP SCH ×4 (00:17→17:56)
[2019-01-07] MEDS: MetroNIDAZOLE 500 MG/100 ML 500 MG/100 ML BAG IVPB SCH ×3 (00:24→14:31)
[2019-01-07] MEDS: Lidocaine 4% CREAM (LMX) 5 GM TP SCH ×4 (04:15→21:07)
[2019-01-07 05:49] LABS: Alanine Aminotransferase 9 Units/L (7-52); Albumin 2.5 g/dL (3.5-5.7); Alkaline Phosphatase 64 Units/L (34-104); Aspartate Amino Transferase 15 Units/L (13-39); BUN/Creatinine Ratio 7 (6-26); Bilirubin,Total 0.3 mg/dL (0.3-1.0); Blood Urea Nitrogen 6 mg/dL (8-23); Calcium 7.7 mg/dL (8.6-10.3); Carbon Dioxide 27 mEq/L (23-29); Chloride 100 mEq/L (98-107); Glucose 171 mg/dL (70-105); Magnesium 1.8 mg/dL (1.6-2.6); Osmolality,Calculated 284 (280-300); Phosphorous 2.6 mg/dL (2.7-4.5); Potassium 2.8 mEq/L (3.5-5.1); Sodium 136 mEq/L (136-145); Total Protein 5.6 g/dL (6.4-8.9); eGFR For African Americans > 60 (> 60); eGFR For Non-African Americans > 60 (> 60)
[2019-01-07 05:50] LABS: Albumin/Globulin Ratio 0.8 (1.1-2.2); Globulin 3.1 g/dL (2.4-3.5); Triglycerides 80 mg/dL (< 150)
[2019-01-07] MEDS: Pantoprazole 40 MG VIAL IVP SCH (09:00)
[2019-01-07] MEDS: Fluconazole 200 MG/100 ML 200 MG/100 ML BAG IVPB SCH (09:00)
[2019-01-07] MEDS: Aspirin Enteric Coated 81 MG Tablet PO SCH (09:06)
[2019-01-07] MEDS: Nystatin SUSP 5 ML UD.LIQ PO SCH ×4 (09:07→21:03)
[2019-01-07] MEDS: Isosorbide MONOnitrate (24 HR) 60 MG TAB.ER.24H PO SCH (09:07)
[2019-01-07] MEDS ORDERED: Clinimix E 5%-15% SOLUTION 2,000 ML with MVI, adult with vitamin K 10 ML, Potassium A... IVC SCH (17:00)
[2019-01-08] MEDS: MetroNIDAZOLE 500 MG/100 ML 500 MG/100 ML BAG IVPB SCH ×4 (00:48→23:56)
[2019-01-08 03:45] LABS: BUN/Creatinine Ratio 10 (6-26); Blood Urea Nitrogen 9 mg/dL (8-23); Calcium 7.8 mg/dL (8.6-10.3); Carbon Dioxide 28 mEq/L (23-29); Chloride 98 mEq/L (98-107); Glucose 168 mg/dL (70-105); Osmolality,Calculated 279 (280-300); Phosphorous 3.3 mg/dL (2.7-4.5); Sodium 133 mEq/L (136-145); eGFR For African Americans > 60 (> 60); eGFR For Non-African Americans > 60 (> 60)
[2019-01-08] MEDS: Insulin LISPRO 300 UNITS/3 ML VIAL SQ SCH ×4 (04:44→18:06)
[2019-01-08] MEDS: *HR* Metoprolol 5 MG/5 ML VIAL IVP SCH ×5 (04:45→18:19)
[2019-01-08] MEDS: Lidocaine 4% CREAM (LMX) 5 GM TP SCH ×4 (04:45→21:19)
[2019-01-08 08:59] LABS: Basophils # 0.1 K/mcL (0.0-0.2); Basophils % 0.4 %; Eosinophils # 0.7 K/mcL (0.0-0.6); Eosinophils % 4.9 %; Hematocrit 30.9 % (37.5-50.1); Hemoglobin 9.6 g/dL (12.9-16.9); Immature Granulocytes % 0.8 % (0-4); Lymphocytes # 1.5 K/mcL (0.6-4.6); Mean Corpuscular HGB Conc 31.1 g/dL (31.6-35.5); Mean Corpuscular Volume 77.3 fL (83.0-100.0); Mean Platelet Volume 8.8 fL (9.4-12.4); Monocytes # 1.1 K/mcL (0.0-1.3); Monocytes % 7.3 %; Neutrophils # 11.1 K/mcL (1.6-8.9); Platelet Count 404 K/mcL (140-400); Red Cell Distribution Width 15.9 % (11.5-14.5); Segmented Neutrophils % 76.6 %; White Blood Count 14.5 K/mcL (4.3-11.1)
[2019-01-08] MEDS ORDERED: Isovue-370 500 ML BOTTLE IVP ONE (09:20)
[2019-01-08] MEDS ORDERED: Isovue-370 500 ML BOTTLE PO ONE (09:25)
[2019-01-08] MEDS ORDERED: Potassium Chloride 40 MEQ, Lidocaine 1% 2 ML in D5% in Water 500 ML IVPB ONE (09:28)
[2019-01-08] MEDS: Fluconazole 200 MG/100 ML 200 MG/100 ML BAG IVPB SCH (09:58)
[2019-01-08] MEDS: Aspirin Enteric Coated 81 MG Tablet PO SCH (09:59)
[2019-01-08] MEDS: Pantoprazole 40 MG VIAL IVP SCH (09:59)
[2019-01-08] MEDS: Isosorbide MONOnitrate (24 HR) 60 MG TAB.ER.24H PO SCH (10:00)
[2019-01-08] MEDS: Nystatin SUSP 5 ML UD.LIQ PO SCH ×4 (10:00→21:14)
[2019-01-08 10:08] LABS: Hepatitis B Core Ab Total NEGATIVE (Negative); Hepatitis Be Antibody NEGATIVE (Negative); Hepatitis Be Antigen NEGATIVE (Negative)
[2019-01-08] MEDS ORDERED: Clinimix E 5%-15% SOLUTION 2,000 ML with MVI, adult with vitamin K 10 ML, Potassium A... IVC SCH (17:00)
[2019-01-09] MEDS: Insulin LISPRO 300 UNITS/3 ML VIAL SQ SCH ×5 (00:07→23:48)
[2019-01-09] MEDS: *HR* Metoprolol 5 MG/5 ML VIAL IVP SCH ×5 (00:08→23:48)
[2019-01-09 03:41] LABS: Basophils # 0.1 K/mcL (0.0-0.2); Basophils % 0.4 %; Eosinophils # 0.9 K/mcL (0.0-0.6); Eosinophils % 6.5 %; Hematocrit 30.2 % (37.5-50.1); Hemoglobin 9.5 g/dL (12.9-16.9); Immature Granulocytes % 0.9 % (0-4); Lymphocytes # 1.9 K/mcL (0.6-4.6); Mean Corpuscular HGB Conc 31.5 g/dL (31.6-35.5); Mean Corpuscular Hemoglobin 23.9 pg (28.0-33.3); Mean Corpuscular Volume 75.9 fL (83.0-100.0); Mean Platelet Volume 8.8 fL (9.4-12.4); Monocytes # 1.4 K/mcL (0.0-1.3); Monocytes % 10.2 %; Neutrophils # 9.4 K/mcL (1.6-8.9); Platelet Count 397 K/mcL (140-400); Red Blood Count 3.98 M/mcL (4.19-5.50); Red Cell Distribution Width 15.9 % (11.5-14.5); White Blood Count 13.8 K/mcL (4.3-11.1)
[2019-01-09 04:03] LABS: BUN/Creatinine Ratio 9 (6-26); Blood Urea Nitrogen 8 mg/dL (8-23); Calcium 7.8 mg/dL (8.6-10.3); Carbon Dioxide 27 mEq/L (23-29); Chloride 103 mEq/L (98-107); Glucose 126 mg/dL (70-105); Magnesium 1.9 mg/dL (1.6-2.6); Osmolality,Calculated 266 (280-300); Phosphorous 2.9 mg/dL (2.7-4.5); Potassium 3.1 mEq/L (3.5-5.1); Sodium 128 mEq/L (136-145); eGFR For African Americans > 60 (> 60); eGFR For Non-African Americans > 60 (> 60)
[2019-01-09] MEDS: Lidocaine 4% CREAM (LMX) 5 GM TP SCH ×4 (04:34→21:56)
[2019-01-09] MEDS ORDERED: Potassium Chloride 40 MEQ, Lidocaine 1% 2 ML in D5% in Water 500 ML IVPB ONE ×2 (07:19→13:00)
[2019-01-09 09:56] LABS: QuantiFERON Mitogen minus NIL >10.00 IU/mL
[2019-01-09] MEDS: Aspirin Enteric Coated 81 MG Tablet PO SCH (10:15)
[2019-01-09] MEDS: Pantoprazole 40 MG VIAL IVP SCH (10:15)
[2019-01-09] MEDS: Nystatin SUSP 5 ML UD.LIQ PO SCH ×4 (10:15→21:57)
[2019-01-09] MEDS: Fluconazole 200 MG/100 ML 200 MG/100 ML BAG IVPB SCH (10:15)
[2019-01-09] MEDS: Isosorbide MONOnitrate (24 HR) 60 MG TAB.ER.24H PO SCH (10:16)
[2019-01-09] MEDS: MetroNIDAZOLE 500 MG/100 ML 500 MG/100 ML BAG IVPB SCH ×3 (10:16→23:50)
[2019-01-09 11:03] LABS: QuantiFERON NIL 0.07 IU/mL; QuantiFERON-TB Gold In-Tube NEGATIVE (Negative)
[2019-01-09 11:36] LABS: Bilirubin,Urine Negative (Negative); Blood,Urine Large (Negative); Clarity,Urine Clear (Clear); Color,Urine Yellow (Yellow); Glucose,Urine (UA) Normal (Normal); Ketones,Urine Negative (Negative); Leukocyte Esterase,Urine Negative (Negative); Nitrite,Urine Negative (Negative); PH,Urine 7.5 pH Units (5.0-8.0); Protein,Urine Negative (Neg-Trace); Specific Gravity,Urine < 1.005 (1.010-1.025); Urobilinogen,Urine Normal (Normal)
[2019-01-09 11:38] LABS: Bacteria,Urine None Seen per hpf (None-Few); Hyaline Casts,Urine None Seen per lpf (None-Few); Squamous Epithelial Cell,Urine Few per lpf (None-Few); WBC,Urine 0-3 per hpf (0-3)
[2019-01-09] MEDS: methylPREDNISolone 125 MG/2 ML VIAL IVP SCH (15:47)
[2019-01-09] MEDS ORDERED: Clinimix E 5%-15% SOLUTION 2,000 ML with MVI, adult with vitamin K 10 ML, Potassium A... IVC SCH (17:00)
[2019-01-09] MEDS ORDERED: SODIUM CHLORIDE/NAHCO3/KCL/PEG 4,000 ML SOLN.RECON PO ONE (17:00)
[2019-01-10] MEDS: Lidocaine 4% CREAM (LMX) 5 GM TP SCH ×4 (03:38→22:09)
[2019-01-10 04:37] LABS: Basophils % 0.3 %; Eosinophils % 0.3 %; Hematocrit 34.4 % (37.5-50.1); Hemoglobin 10.6 g/dL (12.9-16.9); Immature Granulocytes % 1.2 % (0-4); Lymphocytes # 0.7 K/mcL (0.6-4.6); Lymphocytes % 5.2 %; Mean Corpuscular HGB Conc 30.8 g/dL (31.6-35.5); Mean Corpuscular Hemoglobin 23.9 pg (28.0-33.3); Mean Corpuscular Volume 77.5 fL (83.0-100.0); Mean Platelet Volume 9.6 fL (9.4-12.4); Monocytes # 0.5 K/mcL (0.0-1.3); Monocytes % 3.9 %; Neutrophils # 11.4 K/mcL (1.6-8.9); Platelet Count 431 K/mcL (140-400); Red Blood Count 4.44 M/mcL (4.19-5.50); Red Cell Distribution Width 15.9 % (11.5-14.5); Segmented Neutrophils % 89.1 %; White Blood Count 12.8 K/mcL (4.3-11.1)
[2019-01-10 04:38] LABS: VBG Ionized Calcium 1.15 mmol/L (1.15-1.35)
[2019-01-10 05:07] LABS: Platelet Estimate Normal (Normal)
[2019-01-10 05:11] LABS: BUN/Creatinine Ratio 16 (6-26); Blood Urea Nitrogen 12 mg/dL (8-23); Calcium 8.5 mg/dL (8.6-10.3); Carbon Dioxide 24 mEq/L (23-29); Chloride 101 mEq/L (98-107); Glucose 225 mg/dL (70-105); Magnesium 2.1 mg/dL (1.6-2.6); Osmolality,Calculated 285 (280-300); Phosphorous 1.8 mg/dL (2.7-4.5); Potassium 4.2 mEq/L (3.5-5.1); Sodium 134 mEq/L (136-145); eGFR For African Americans > 60 (> 60); eGFR For Non-African Americans > 60 (> 60)
[2019-01-10] MEDS: Insulin LISPRO 300 UNITS/3 ML VIAL SQ SCH ×4 (05:18→22:09)
[2019-01-10] MEDS: *HR* Metoprolol 5 MG/5 ML VIAL IVP SCH ×3 (05:22→17:14)
[2019-01-10] MEDS: methylPREDNISolone 125 MG/2 ML VIAL IVP SCH (08:10)
[2019-01-10] MEDS: MetroNIDAZOLE 500 MG/100 ML 500 MG/100 ML BAG IVPB SCH ×2 (08:10→17:04)
[2019-01-10] MEDS: Pantoprazole 40 MG VIAL IVP SCH (08:10)
[2019-01-10] MEDS ORDERED: *HR* Propofol 200 MG/20 ML VIAL IVP ONE (13:00)
[2019-01-10] MEDS: Aspirin Enteric Coated 81 MG Tablet PO SCH (15:01)
[2019-01-10] MEDS: Isosorbide MONOnitrate (24 HR) 60 MG TAB.ER.24H PO SCH (15:01)
[2019-01-10] MEDS: Nystatin SUSP 5 ML UD.LIQ PO SCH ×4 (15:02→22:09)
[2019-01-10] MEDS ORDERED: Clinimix E 5%-15% SOLUTION 2,000 ML with MVI, adult with vitamin K 10 ML IVC SCH (17:00)
[2019-01-11] MEDS: *HR* Metoprolol 5 MG/5 ML VIAL IVP SCH ×4 (00:18→16:50)
[2019-01-11] MEDS: MetroNIDAZOLE 500 MG/100 ML 500 MG/100 ML BAG IVPB SCH ×3 (00:30→14:46)
[2019-01-11] MEDS: Insulin LISPRO 300 UNITS/3 ML VIAL SQ SCH ×5 (00:37→21:34)
[2019-01-11] MEDS: Lidocaine 4% CREAM (LMX) 5 GM TP SCH ×4 (03:45→20:17)
[2019-01-11 05:34] LABS: VBG Ionized Calcium 1.13 mmol/L (1.15-1.35)
[2019-01-11 05:34] LABS: Basophils # 0.1 K/mcL (0.0-0.2); Basophils % 0.3 %; Eosinophils # 0.1 K/mcL (0.0-0.6); Eosinophils % 0.6 %; Hemoglobin 10.4 g/dL (12.9-16.9); Immature Granulocytes % 1.1 % (0-4); Lymphocytes # 2.1 K/mcL (0.6-4.6); Lymphocytes % 9.8 %; Mean Corpuscular HGB Conc 31.5 g/dL (31.6-35.5); Mean Corpuscular Hemoglobin 23.9 pg (28.0-33.3); Mean Corpuscular Volume 75.7 fL (83.0-100.0); Mean Platelet Volume 9.1 fL (9.4-12.4); Monocytes # 1.5 K/mcL (0.0-1.3); Monocytes % 6.9 %; Neutrophils # 17.6 K/mcL (1.6-8.9); Platelet Count 547 K/mcL (140-400); Red Blood Count 4.36 M/mcL (4.19-5.50); Segmented Neutrophils % 81.3 %
[2019-01-11 05:39] LABS: White Blood Count 21.7 K/mcL (4.3-11.1)
[2019-01-11 05:50] LABS: BUN/Creatinine Ratio 21 (6-26); Blood Urea Nitrogen 16 mg/dL (8-23); Calcium 8.2 mg/dL (8.6-10.3); Carbon Dioxide 26 mEq/L (23-29); Chloride 102 mEq/L (98-107); Glucose 143 mg/dL (70-105); Osmolality,Calculated 288 (280-300); Phosphorous 3.2 mg/dL (2.7-4.5); Potassium 3.2 mEq/L (3.5-5.1); Sodium 137 mEq/L (136-145); eGFR For African Americans > 60 (> 60); eGFR For Non-African Americans > 60 (> 60)
[2019-01-11] MEDS: methylPREDNISolone 125 MG/2 ML VIAL IVP SCH (09:16)
[2019-01-11] MEDS: Pantoprazole 40 MG VIAL IVP SCH (09:16)
[2019-01-11] MEDS: Aspirin Enteric Coated 81 MG Tablet PO SCH (09:24)
[2019-01-11] MEDS: Isosorbide MONOnitrate (24 HR) 60 MG TAB.ER.24H PO SCH (09:25)
[2019-01-11] MEDS: Nystatin SUSP 5 ML UD.LIQ PO SCH ×4 (09:28→20:16)
[2019-01-11] MEDS: *HR* Metformin 500 MG TABLET PO SCH (15:40)
[2019-01-11] MEDS: Insulin NPH/REG 70/30 100 UNIT/ML (x5UNIT) SQ SCH (16:50)
[2019-01-11] MEDS ORDERED: Clinimix E 5%-15% SOLUTION 2,000 ML with MVI, adult with vitamin K 10 ML, Potassium A... IVC SCH (17:00)
[2019-01-12] MEDS: MetroNIDAZOLE 500 MG/100 ML 500 MG/100 ML BAG IVPB SCH ×2 (00:20→07:31)
[2019-01-12] MEDS: Insulin LISPRO 300 UNITS/3 ML VIAL SQ SCH ×2 (00:26→05:57)
[2019-01-12] MEDS: *HR* Metoprolol 5 MG/5 ML VIAL IVP SCH ×2 (00:40→05:57)
[2019-01-12] MEDS: Lidocaine 4% CREAM (LMX) 5 GM TP SCH ×2 (03:54→07:34)
[2019-01-12 04:12] LABS: Basophils % 0.1 %; Eosinophils % 0.1 %; Hematocrit 33.1 % (37.5-50.1); Hemoglobin 10.4 g/dL (12.9-16.9); Immature Granulocytes % 1.3 % (0-4); Lymphocytes # 1.8 K/mcL (0.6-4.6); Lymphocytes % 8.2 %; Mean Corpuscular HGB Conc 31.4 g/dL (31.6-35.5); Mean Corpuscular Hemoglobin 23.7 pg (28.0-33.3); Mean Corpuscular Volume 75.6 fL (83.0-100.0); Mean Platelet Volume 8.8 fL (9.4-12.4); Monocytes # 1.6 K/mcL (0.0-1.3); Monocytes % 7.3 %; Neutrophils # 18.5 K/mcL (1.6-8.9); Platelet Count 609 K/mcL (140-400); Red Blood Count 4.38 M/mcL (4.19-5.50); Red Cell Distribution Width 16.1 % (11.5-14.5); White Blood Count 22.3 K/mcL (4.3-11.1)
[2019-01-12 04:26] LABS: BUN/Creatinine Ratio 24 (6-26); Blood Urea Nitrogen 20 mg/dL (8-23); Calcium 8.3 mg/dL (8.6-10.3); Carbon Dioxide 27 mEq/L (23-29); Chloride 102 mEq/L (98-107); Glucose 163 mg/dL (70-105); Osmolality,Calculated 288 (280-300); Phosphorous 2.8 mg/dL (2.7-4.5); Potassium 4.2 mEq/L (3.5-5.1); Sodium 136 mEq/L (136-145); eGFR For African Americans > 60 (> 60); eGFR For Non-African Americans > 60 (> 60)
[2019-01-12 07:01] VITALS: BP 129/67
[2019-01-12] MEDS: Pantoprazole 40 MG VIAL IVP SCH (07:33)
[2019-01-12] MEDS: methylPREDNISolone 125 MG/2 ML VIAL IVP SCH (07:33)
[2019-01-12] MEDS: Insulin NPH/REG 70/30 100 UNIT/ML (x5UNIT) SQ SCH (07:34)
[2019-01-12] MEDS: *HR* Metformin 500 MG TABLET PO SCH (07:34)
[2019-01-12] MEDS: Aspirin Enteric Coated 81 MG Tablet PO SCH (07:34)
[2019-01-12] MEDS: Isosorbide MONOnitrate (24 HR) 60 MG TAB.ER.24H PO SCH (07:34)
[2019-01-12] MEDS: Nystatin SUSP 5 ML UD.LIQ PO SCH (07:34)
== END 2019-01-12 10:30 | disposition home or self-care (01) | DRG 332 ==
LOC: CDU → 3BNU 01-04 20:01
PROVIDERS: ADMIT Surgery; ATTEND Surgery
PROC: ENDOCBX (2019-01-10 13:55)
PROC: ENDOEBX (2019-01-10 13:55)

== ENCOUNTER 2019-09-14 11:09 | Observation (INO) ==
[2019-09-14] MEDS ORDERED: 0.9 % Sodium Chloride 1,000 ML IVC ONE ×2 (11:18→12:52)
[2019-09-14 11:44] LABS: Basophils # 0.1 K/mcL (0.0-0.2); Basophils % 0.5 %; Eosinophils # 0.2 K/mcL (0.0-0.6); Eosinophils % 1.1 %; Hematocrit 23.8 % (37.5-50.1); Immature Granulocytes % 0.5 % (0-4); Lymphocytes # 2.3 K/mcL (0.6-4.6); Lymphocytes % 16.7 %; Mean Corpuscular HGB Conc 29.8 g/dL (31.6-35.5); Mean Corpuscular Hemoglobin 22.8 pg (28.0-33.3); Mean Corpuscular Volume 76.3 fL (83.0-100.0); Mean Platelet Volume 9.2 fL (9.4-12.4); Monocytes % 7.1 %; Neutrophils # 10.3 K/mcL (1.6-8.9); Nucleated Red Blood Cells 0.1 /100 WBC (0); Platelet Count 396 K/mcL (140-400); Red Blood Count 3.12 M/mcL (4.19-5.50); Red Cell Distribution Width 16.7 % (11.5-14.5); Segmented Neutrophils % 74.1 %; White Blood Count 13.9 K/mcL (4.3-11.1)
[2019-09-14 12:03] LABS: Calcium 8.3 mg/dL (8.6-10.3); Phosphorous 1.9 mg/dL (2.7-4.5); Potassium 3.4 mEq/L (3.5-5.1)
[2019-09-14 12:05] LABS: Hemoglobin 7.1 g/dL (12.9-16.9)
[2019-09-14] MEDS ORDERED: Naloxone 0.4 MG/ML INJ IVP PRN (13:16)
[2019-09-14 13:19] LABS: Bilirubin,Urine Small (Negative); Blood,Urine Negative (Negative); Clarity,Urine Clear (Clear); Color,Urine Dark Yellow (Yellow); Glucose,Urine (UA) Normal (Normal); Ketones,Urine Trace mg/dL (Negative); Leukocyte Esterase,Urine Moderate (Negative); Nitrite,Urine Negative (Negative); Protein,Urine Negative (Neg-Trace); Specific Gravity,Urine > 1.030 (1.010-1.025); Urobilinogen,Urine Normal (Normal)
[2019-09-14 13:21] LABS: Bacteria,Urine None Seen per hpf (None-Few); Squamous Epithelial Cell,Urine Many per lpf (None-Few); WBC,Urine 15-30 per hpf (0-3)
[2019-09-14 13:34] LABS: Hyaline Casts,Urine Few per lpf (None-Few); Mucus,Urine Few per lpf (Few)
[2019-09-14 14:19] LABS: INR 1.1
[2019-09-14] MEDS ORDERED: D5% in Water 1,000 ML IVC PRN (15:18)
[2019-09-14] MEDS ORDERED: Dextrose Gel 15 GM/37.5 ML TUBE PO PRN ×2 (15:18)
[2019-09-14] MEDS ORDERED: *HR* Dextrose 50 % in Water (Syg) 50 ML SYRINGE IVP PRN (15:18)
[2019-09-14] MEDS ORDERED: 0.9 % Sodium Chloride 250 ML IVC SCH (15:30)
[2019-09-14] MEDS: 0.9 % Sodium Chloride 1,000 ML IVC SCH (15:40)
[2019-09-14 15:50] LABS: Hemoglobin 6.2 g/dL (12.9-16.9)
[2019-09-14] MEDS: Insulin LISPRO 300 UNITS/3 ML VIAL SQ SCH (16:59)
[2019-09-14] MEDS ORDERED: SODIUM CHLORIDE/NAHCO3/KCL/PEG 4,000 ML SOLN.RECON PO ONE (17:00)
[2019-09-14] MEDS ORDERED: Nitroglycerin 0.4 MG TAB.SUBL SL PRN (17:47)
[2019-09-14] MEDS ORDERED: Triamcinolone Acet 0.1% CRM 15 GM TUBE TP PRN (17:47)
[2019-09-14 21:40] LABS: Hematocrit 25.3 % (37.5-50.1); Hemoglobin 7.6 g/dL (12.9-16.9)
[2019-09-15] MEDS: Insulin LISPRO 300 UNITS/3 ML VIAL SQ SCH ×5 (00:04→18:26)
[2019-09-15] MEDS: 0.9 % Sodium Chloride 1,000 ML IVC SCH ×2 (04:22→22:16)
[2019-09-15 05:41] LABS: Basophils # 0.1 K/mcL (0.0-0.2); Basophils % 0.5 %; Eosinophils # 0.5 K/mcL (0.0-0.6); Eosinophils % 4.8 %; Hematocrit 23.5 % (37.5-50.1); Hemoglobin 6.9 g/dL (12.9-16.9); Immature Granulocytes % 0.4 % (0-4); Lymphocytes # 2.1 K/mcL (0.6-4.6); Lymphocytes % 21.2 %; Mean Corpuscular HGB Conc 29.4 g/dL (31.6-35.5); Mean Corpuscular Hemoglobin 22.5 pg (28.0-33.3); Mean Corpuscular Volume 76.5 fL (83.0-100.0); Mean Platelet Volume 9.4 fL (9.4-12.4); Monocytes # 0.8 K/mcL (0.0-1.3); Monocytes % 8.1 %; Neutrophils # 6.4 K/mcL (1.6-8.9); Platelet Count 333 K/mcL (140-400); Red Blood Count 3.07 M/mcL (4.19-5.50); Red Cell Distribution Width 16.6 % (11.5-14.5); White Blood Count 9.8 K/mcL (4.3-11.1)
[2019-09-15 06:00] LABS: BUN/Creatinine Ratio 18 (6-26); Blood Urea Nitrogen 16 mg/dL (8-23); Carbon Dioxide 24 mEq/L (23-29); Chloride 110 mEq/L (98-107); Glucose 106 mg/dL (70-105); Osmolality,Calculated 290 (280-300); Potassium 3.5 mEq/L (3.5-5.1); Sodium 139 mEq/L (136-145); eGFR For African Americans > 60 (> 60); eGFR For Non-African Americans > 60 (> 60)
[2019-09-15] MEDS: Isosorbide MONOnitrate (24 HR) 60 MG TAB.ER.24H PO SCH (07:53)
[2019-09-15] MEDS: Metoprolol XL (24 HR) Succ 25 MG TAB.ER.24H PO SCH (07:53)
[2019-09-15] MEDS ORDERED: Simethicone 40 MG/0.6 ML MLS IR ONE (08:02)
[2019-09-15] MEDS ORDERED: Lidocaine -MPF 2% 2 ML VIAL ONE (08:11)
[2019-09-15] MEDS ORDERED: 0.9 % Sodium Chloride 250 ML IVC SCH (09:30)
[2019-09-15 11:11] LABS: Iron < 10 mcg/dL (65-175); Transferrin 251 mg/dL (203-362)
[2019-09-15] MEDS ORDERED: Gadolinium Contrast Agent (WT Based) IV PRN (11:29)
[2019-09-15] MEDS ORDERED: 0.9 % Sodium Chloride 250 ML ONE (11:53)
[2019-09-15] MEDS ORDERED: Dextrose Gel 15 GM/37.5 ML TUBE PO PRN ×2 (13:29)
[2019-09-15] MEDS ORDERED: D5% in Water 1,000 ML IVC PRN (13:29)
[2019-09-15] MEDS ORDERED: *HR* Dextrose 50 % in Water (Syg) 50 ML SYRINGE IVP PRN (13:29)
[2019-09-15] MEDS ORDERED: Iron Sucrose Complex 200 MG in 0.9 % Sodium Chloride 100 ML IVPB SCH (13:45)
[2019-09-15 18:41] LABS: Hematocrit 25.1 % (37.5-50.1); Hemoglobin 7.6 g/dL (12.9-16.9)
[2019-09-15] MEDS ORDERED: Insulin LISPRO 300 UNITS/3 ML VIAL SQ SCH (21:00)
[2019-09-16 01:14] LABS: Basophils # 0.1 K/mcL (0.0-0.2); Basophils % 0.6 %; Eosinophils # 0.5 K/mcL (0.0-0.6); Eosinophils % 5.1 %; Hematocrit 24.9 % (37.5-50.1); Hemoglobin 7.6 g/dL (12.9-16.9); Immature Granulocytes % 0.5 % (0-4); Lymphocytes # 2.3 K/mcL (0.6-4.6); Lymphocytes % 21.6 %; Mean Corpuscular HGB Conc 30.5 g/dL (31.6-35.5); Mean Corpuscular Hemoglobin 23.9 pg (28.0-33.3); Mean Corpuscular Volume 78.3 fL (83.0-100.0); Mean Platelet Volume 9.2 fL (9.4-12.4); Monocytes # 0.9 K/mcL (0.0-1.3); Monocytes % 8.6 %; Neutrophils # 6.7 K/mcL (1.6-8.9); Platelet Count 319 K/mcL (140-400); Red Blood Count 3.18 M/mcL (4.19-5.50); Red Cell Distribution Width 17.2 % (11.5-14.5); Segmented Neutrophils % 63.6 %; White Blood Count 10.4 K/mcL (4.3-11.1)
[2019-09-16 01:27] LABS: Blood Urea Nitrogen 10 mg/dL (8-23); Calcium 7.9 mg/dL (8.6-10.3); Carbon Dioxide 23 mEq/L (23-29); Chloride 110 mEq/L (98-107); Glucose 98 mg/dL (70-105); Osmolality,Calculated 283 (280-300); Potassium 3.4 mEq/L (3.5-5.1); Sodium 137 mEq/L (136-145)
[2019-09-16 01:44] LABS: BUN/Creatinine Ratio 12 (6-26); eGFR For African Americans > 60 (> 60); eGFR For Non-African Americans > 60 (> 60)
[2019-09-16 07:21] VITALS: BP 114/76
[2019-09-16] MEDS: Insulin LISPRO 300 UNITS/3 ML VIAL SQ SCH ×2 (09:08→11:32)
[2019-09-16] MEDS: Metoprolol XL (24 HR) Succ 25 MG TAB.ER.24H PO SCH (09:15)
[2019-09-16] MEDS: Isosorbide MONOnitrate (24 HR) 60 MG TAB.ER.24H PO SCH (09:15)
[2019-09-16] MEDS ORDERED: Iron Sucrose Complex 200 MG in 0.9 % Sodium Chloride 100 ML IVPB ONE (09:30)
[2019-09-18 07:36] LABS: QuantiFERON Mitogen minus NIL 6.59 IU/mL
[2019-09-18 14:31] LABS: QuantiFERON NIL 0.03 IU/mL; QuantiFERON-TB Gold In-Tube NEGATIVE (Negative)
== END 2019-09-16 13:46 | disposition home or self-care (01) ==
LOC: 2NENU 11:09 → EMEROOARM 11:09 → 2NENU 13:52
PROVIDERS: ADMIT Internal Medicine; ATTEND Internal Medicine
PROC: ENDOCBX (2019-09-15 08:35)

== ENCOUNTER 2019-11-26 12:02 | Observation (INO) ==
[2019-11-26 12:56] LABS: Basophils # 0.1 K/mcL (0.0-0.2); Basophils % 0.3 %; Eosinophils # 0.1 K/mcL (0.0-0.6); Eosinophils % 0.3 %; Hematocrit 29.2 % (37.5-50.1); Hemoglobin 9.1 g/dL (12.9-16.9); Immature Granulocytes % 0.6 % (0-4); Lymphocytes # 2.7 K/mcL (0.6-4.6); Lymphocytes % 11.7 %; Mean Corpuscular HGB Conc 31.2 g/dL (31.6-35.5); Mean Corpuscular Hemoglobin 27.3 pg (28.0-33.3); Mean Corpuscular Volume 87.7 fL (83.0-100.0); Mean Platelet Volume 9.3 fL (9.4-12.4); Monocytes # 1.7 K/mcL (0.0-1.3); Monocytes % 7.3 %; Neutrophils # 18.1 K/mcL (1.6-8.9); Platelet Count 500 K/mcL (140-400); Red Blood Count 3.33 M/mcL (4.19-5.50); Red Cell Distribution Width 16.2 % (11.5-14.5); Segmented Neutrophils % 79.8 %; White Blood Count 22.7 K/mcL (4.3-11.1)
[2019-11-26 12:57] LABS: INR 1.2; Prothrombin Time 13.8 Seconds (9.4-12.1)
[2019-11-26 13:08] LABS: Albumin 3.4 g/dL (3.5-5.7); Albumin/Globulin Ratio 1.3 (1.1-2.2); Bilirubin,Total 0.3 mg/dL (0.3-1.0); Calcium 8.2 mg/dL (8.6-10.3); Globulin 2.7 g/dL (2.4-3.5); Potassium 3.4 mEq/L (3.5-5.1); Total Protein 6.1 g/dL (6.4-8.9)
[2019-11-26] MEDS ORDERED: 0.9 % Sodium Chloride 1,000 ML IVC ONE (14:45)
[2019-11-26] MEDS ORDERED: *HR* Dextrose 50 % in Water (Syg) 50 ML SYRINGE IVP PRN (15:50)
[2019-11-26] MEDS ORDERED: D5% in Water 1,000 ML IVC PRN (15:50)
[2019-11-26] MEDS ORDERED: Dextrose Gel 15 GM/37.5 ML TUBE PO PRN ×2 (15:50)
[2019-11-26] MEDS ORDERED: Ondansetron 4 MG/2 ML VIAL IVP PRN (15:50)
[2019-11-26] MEDS ORDERED: Acetaminophen 325 MG TABLET PO PRN (15:50)
[2019-11-26 16:12] LABS: Hematocrit 26.6 % (37.5-50.1); Hemoglobin 8.4 g/dL (12.9-16.9)
[2019-11-26] MEDS: 0.9 % Sodium Chloride 1,000 ML IVC SCH (17:20)
[2019-11-26] MEDS: Pantoprazole 40 MG VIAL IVP SCH (17:20)
[2019-11-26] MEDS: Insulin LISPRO 300 UNITS/3 ML VIAL SQ SCH (17:21)
[2019-11-26 20:33] LABS: Bilirubin,Urine Negative (Negative); Blood,Urine Negative (Negative); Clarity,Urine Cloudy (Clear); Color,Urine Yellow (Yellow); Glucose,Urine (UA) Normal (Normal); Ketones,Urine Negative (Negative); Leukocyte Esterase,Urine Small (Negative); Nitrite,Urine Negative (Negative); PH,Urine 5.5 pH Units (5.0-8.0); Protein,Urine Trace mg/dL (Neg-Trace); Specific Gravity,Urine 1.016 (1.010-1.025); Urobilinogen,Urine Normal (Normal)
[2019-11-26 20:36] LABS: Bacteria,Urine None Seen per hpf (None-Few); Squamous Epithelial Cell,Urine Many per lpf (None-Few)
[2019-11-26 20:46] LABS: Hyaline Casts,Urine Few per lpf (None-Few)
[2019-11-26 22:16] LABS: Hemoglobin 7.3 g/dL (12.9-16.9)
[2019-11-27] MEDS: 0.9 % Sodium Chloride 1,000 ML IVC SCH (04:42)
[2019-11-27] MEDS: Pantoprazole 40 MG VIAL IVP SCH ×2 (06:30→17:19)
[2019-11-27] MEDS ORDERED: Ringers Solution, Lactated 500 ML IVC ONE (07:40)
[2019-11-27] MEDS ORDERED: 0.9 % Sodium Chloride 250 ML IVC SCH (07:45)
[2019-11-27] MEDS: Insulin LISPRO 300 UNITS/3 ML VIAL SQ SCH ×3 (08:20→16:54)
[2019-11-27 08:27] LABS: Basophils % 0.4 %; Eosinophils # 0.2 K/mcL (0.0-0.6); Eosinophils % 1.7 %; Hematocrit 23.6 % (37.5-50.1); Hemoglobin 7.1 g/dL (12.9-16.9); Immature Granulocytes % 0.5 % (0-4); Lymphocytes # 1.7 K/mcL (0.6-4.6); Lymphocytes % 17.2 %; Mean Corpuscular HGB Conc 30.1 g/dL (31.6-35.5); Mean Corpuscular Hemoglobin 26.2 pg (28.0-33.3); Mean Corpuscular Volume 87.1 fL (83.0-100.0); Mean Platelet Volume 9.2 fL (9.4-12.4); Monocytes # 0.8 K/mcL (0.0-1.3); Monocytes % 8.4 %; Platelet Count 361 K/mcL (140-400); Red Blood Count 2.71 M/mcL (4.19-5.50); Red Cell Distribution Width 16.3 % (11.5-14.5); Segmented Neutrophils % 71.8 %
[2019-11-27 08:28] LABS: White Blood Count 9.8 K/mcL (4.3-11.1)
[2019-11-27 08:29] LABS: INR 1.2; Prothrombin Time 13.1 Seconds (9.4-12.1)
[2019-11-27 08:40] LABS: Alanine Aminotransferase 5 Units/L (7-52); Albumin 2.7 g/dL (3.5-5.7); Albumin/Globulin Ratio 1.2 (1.1-2.2); Alkaline Phosphatase 50 Units/L (34-104); Aspartate Amino Transferase 15 Units/L (13-39); BUN/Creatinine Ratio 15 (6-26); Bilirubin,Total 0.2 mg/dL (0.3-1.0); Blood Urea Nitrogen 14 mg/dL (8-23); Calcium 7.7 mg/dL (8.6-10.3); Carbon Dioxide 23 mEq/L (23-29); Chloride 111 mEq/L (98-107); Globulin 2.2 g/dL (2.4-3.5); Glucose 89 mg/dL (70-105); Magnesium 1.5 mg/dL (1.6-2.6); Osmolality,Calculated 290 (280-300); Potassium 3.5 mEq/L (3.5-5.1); Sodium 140 mEq/L (136-145); Total Protein 4.9 g/dL (6.4-8.9); eGFR For African Americans > 60 (> 60); eGFR For Non-African Americans > 60 (> 60)
[2019-11-27] MEDS ORDERED: Hydrocortisone Rectal 2.5% CRM 28 GM TUBE RC PRN (12:37)
[2019-11-27 15:16] LABS: Hematocrit 29.1 % (37.5-50.1)
[2019-11-27 15:20] LABS: Hemoglobin 8.8 g/dL (12.9-16.9)
[2019-11-27] MEDS ORDERED: SODIUM CHLORIDE/NAHCO3/KCL/PEG 4,000 ML SOLN.RECON PO ONE (17:00)
[2019-11-27 21:32] LABS: Hematocrit 28.3 % (37.5-50.1); Hemoglobin 8.8 g/dL (12.9-16.9)
[2019-11-28] MEDS: Insulin LISPRO 300 UNITS/3 ML VIAL SQ SCH ×4 (00:16→18:00)
[2019-11-28 04:59] LABS: Basophils # 0.1 K/mcL (0.0-0.2); Basophils % 0.8 %; Eosinophils # 0.3 K/mcL (0.0-0.6); Eosinophils % 2.3 %; Hematocrit 27.2 % (37.5-50.1); Hemoglobin 8.5 g/dL (12.9-16.9); Immature Granulocytes % 0.7 % (0-4); Lymphocytes # 2.2 K/mcL (0.6-4.6); Lymphocytes % 18.4 %; Mean Corpuscular HGB Conc 31.3 g/dL (31.6-35.5); Mean Corpuscular Hemoglobin 26.6 pg (28.0-33.3); Mean Platelet Volume 9.3 fL (9.4-12.4); Monocytes # 1.1 K/mcL (0.0-1.3); Monocytes % 9.5 %; Neutrophils # 8.1 K/mcL (1.6-8.9); Platelet Count 368 K/mcL (140-400); Red Cell Distribution Width 15.8 % (11.5-14.5); Segmented Neutrophils % 68.3 %; White Blood Count 11.9 K/mcL (4.3-11.1)
[2019-11-28 05:09] LABS: Alanine Aminotransferase 7 Units/L (7-52); Albumin 2.9 g/dL (3.5-5.7); Albumin/Globulin Ratio 1.1 (1.1-2.2); Alkaline Phosphatase 59 Units/L (34-104); Aspartate Amino Transferase 20 Units/L (13-39); BUN/Creatinine Ratio 10 (6-26); Bilirubin,Total 0.4 mg/dL (0.3-1.0); Blood Urea Nitrogen 8 mg/dL (8-23); Calcium 7.8 mg/dL (8.6-10.3); Carbon Dioxide 24 mEq/L (23-29); Chloride 107 mEq/L (98-107); Globulin 2.6 g/dL (2.4-3.5); Glucose 116 mg/dL (70-105); Osmolality,Calculated 285 (280-300); Potassium 3.3 mEq/L (3.5-5.1); Sodium 138 mEq/L (136-145); Total Protein 5.5 g/dL (6.4-8.9); eGFR For African Americans > 60 (> 60); eGFR For Non-African Americans > 60 (> 60)
[2019-11-28] MEDS: Pantoprazole 40 MG VIAL IVP SCH ×2 (05:29→18:01)
[2019-11-28] MEDS ORDERED: Potassium Chloride Elixir 20 MEQ/15 ML UDC PO ONE (08:04)
[2019-11-28] MEDS ORDERED: *HR* Propofol 200 MG/20 ML VIAL IVP ONE (12:59)
[2019-11-28] MEDS ORDERED: *HR* FentaNYL (PF) 100 MCG/2 ML VIAL ONE (12:59)
[2019-11-28] MEDS ORDERED: Lidocaine Jelly 6ml 1 APPL/6 ML JEL.PF.APP TP ONE (13:24)
[2019-11-28] MEDS ORDERED: Lidocaine Viscous Oral Soln 15 ML SOLUTION ONE (13:39)
[2019-11-28] MEDS ORDERED: Dexamethasone 4 MG/ML VIAL ONE (13:42)
[2019-11-28] MEDS ORDERED: Ondansetron 4 MG/2 ML VIAL ONE (14:04)
[2019-11-28] MEDS: MethylPREDNISolone 40 MG/ML VIAL IVP SCH ×2 (15:06→23:50)
[2019-11-28] MEDS ORDERED: Insulin LISPRO 300 UNITS/3 ML VIAL SQ SCH (21:00)
[2019-11-28] MEDS: Hydrocortisone Rectal 2.5% CRM 28 GM TUBE RC SCH (21:32)
[2019-11-29 05:09] LABS: Basophils % 0.1 %; Hematocrit 29.2 % (37.5-50.1); Immature Granulocytes % 0.8 % (0-4); Lymphocytes # 0.6 K/mcL (0.6-4.6); Lymphocytes % 4.1 %; Mean Corpuscular HGB Conc 30.8 g/dL (31.6-35.5); Mean Corpuscular Hemoglobin 26.7 pg (28.0-33.3); Mean Corpuscular Volume 86.6 fL (83.0-100.0); Mean Platelet Volume 9.2 fL (9.4-12.4); Monocytes # 0.2 K/mcL (0.0-1.3); Monocytes % 1.2 %; Neutrophils # 13.6 K/mcL (1.6-8.9); Platelet Count 445 K/mcL (140-400); Red Blood Count 3.37 M/mcL (4.19-5.50); Segmented Neutrophils % 93.8 %; White Blood Count 14.5 K/mcL (4.3-11.1)
[2019-11-29 05:28] LABS: Alanine Aminotransferase 7 Units/L (7-52); Albumin 3.3 g/dL (3.5-5.7); Albumin/Globulin Ratio 1.2 (1.1-2.2); Alkaline Phosphatase 68 Units/L (34-104); Aspartate Amino Transferase 14 Units/L (13-39); BUN/Creatinine Ratio 15 (6-26); Bilirubin,Total 0.3 mg/dL (0.3-1.0); Blood Urea Nitrogen 14 mg/dL (8-23); Calcium 8.2 mg/dL (8.6-10.3); Carbon Dioxide 24 mEq/L (23-29); Chloride 106 mEq/L (98-107); Globulin 2.8 g/dL (2.4-3.5); Glucose 209 mg/dL (70-105); Osmolality,Calculated 287 (280-300); Potassium 3.6 mEq/L (3.5-5.1); Sodium 135 mEq/L (136-145); Total Protein 6.1 g/dL (6.4-8.9); eGFR For African Americans > 60 (> 60); eGFR For Non-African Americans > 60 (> 60)
[2019-11-29] MEDS: Pantoprazole 40 MG VIAL IVP SCH (06:18)
[2019-11-29 06:54] VITALS: BP 128/85
[2019-11-29] MEDS ORDERED: Insulin LISPRO 300 UNITS/3 ML VIAL SQ SCH (07:30)
[2019-11-29] MEDS: MethylPREDNISolone 40 MG/ML VIAL IVP SCH (09:13)
[2019-11-29] MEDS: Hydrocortisone Rectal 2.5% CRM 28 GM TUBE RC SCH (09:17)
[2019-11-29] MEDS ORDERED: predniSONE 20 MG TABLET PO ONE (09:33)
[2019-11-29] MEDS ORDERED: Triamcinolone Acet 0.1% CRM 15 GM TUBE TP PRN (09:33)
[2019-11-29] MEDS ORDERED: Nitroglycerin 0.4 MG TAB.SUBL SL PRN (09:33)
[2019-11-29] MEDS ORDERED: Insulin NPH/REG 70/30 100 UNIT/ML (x5UNIT) SQ SCH (16:30)
[2019-11-30] MEDS ORDERED: Isosorbide MONOnitrate (24 HR) 60 MG TAB.ER.24H PO SCH (09:00)
[2019-11-30] MEDS ORDERED: Metoprolol XL (24 HR) Succ 25 MG TAB.ER.24H PO SCH (09:00)
[2019-11-30] MEDS ORDERED: Aspirin Enteric Coated 81 MG Tablet PO SCH (09:00)
== END 2019-11-29 11:42 | disposition home or self-care (01) ==
LOC: EMEROOARM 12:02 → 3ANU 12:02 → SUATTDRO 15:24 → 3ANU 16:20
PROVIDERS: ADMIT Internal Medicine; ATTEND Internal Medicine
PROC: ENDOCBX (2019-11-28 13:00)

== ENCOUNTER 2019-12-14 08:12 | Inpatient (IN) ==
[2019-12-14] MEDS ORDERED: Isovue-370 500 ML BOTTLE IVP ONE (08:25)
[2019-12-14] MEDS ORDERED: 0.9 % Sodium Chloride 1,000 ML IVC STA (08:26)
[2019-12-14] MEDS ORDERED: Morphine Sulfate 2 MG/ML SYRINGE IVP ONE (08:27)
[2019-12-14] MEDS ORDERED: *HR* FentaNYL (PF) 100 MCG/2 ML VIAL IVP ONE ×2 (08:48→11:44)
[2019-12-14 08:55] LABS: Mean Corpuscular Volume 86.1 fL (83.0-100.0)
[2019-12-14 08:56] LABS: Hematocrit 32.7 % (37.5-50.1); Hemoglobin 9.7 g/dL (12.9-16.9); Mean Corpuscular HGB Conc 29.7 g/dL (31.6-35.5); Mean Corpuscular Hemoglobin 25.5 pg (28.0-33.3); Mean Platelet Volume 9.1 fL (9.4-12.4); Platelet Count 369 K/mcL (140-400); Red Cell Distribution Width 16.5 % (11.5-14.5); White Blood Count 28.9 K/mcL (4.3-11.1)
[2019-12-14 09:13] LABS: Alanine Aminotransferase 9 Units/L (7-52); Albumin 3.2 g/dL (3.5-5.7); Albumin/Globulin Ratio 0.9 (1.1-2.2); Alkaline Phosphatase 80 Units/L (34-104); Aspartate Amino Transferase 12 Units/L (13-39); BUN/Creatinine Ratio 21 (6-26); Bilirubin,Total 0.9 mg/dL (0.3-1.0); Blood Urea Nitrogen 20 mg/dL (8-23); C-Reactive Protein 290 mg/L (Less than 10); Calcium 8.6 mg/dL (8.6-10.3); Carbon Dioxide 22 mEq/L (23-29); Chloride 99 mEq/L (98-107); Globulin 3.4 g/dL (2.4-3.5); Glucose 77 mg/dL (70-105); Osmolality,Calculated 277 (280-300); Sodium 133 mEq/L (136-145); Total Protein 6.6 g/dL (6.4-8.9); eGFR For African Americans > 60 (> 60); eGFR For Non-African Americans > 60 (> 60)
[2019-12-14 09:29] LABS: Lymphocytes # 0.6 K/mcL (0.6-4.6); Monocytes # 0.6 K/mcL (0.0-1.3); Neutrophils # 27.5 K/mcL (1.6-8.9); Platelet Estimate Normal (Normal); Polychromasia 1+ (Not Present)
[2019-12-14] MEDS ORDERED: Piperacillin/Tazobactam 3.375 GM in 0.9 % Sodium Chloride Mini Bag 100 ML IVPB ONE (10:26)
[2019-12-14] MEDS ORDERED: Vancomycin 1,500 MG/265 ML IV.SOLN IVPB ONE (10:29)
[2019-12-14] MEDS ORDERED: Clindamycin 900 MG/50 ML 900 MG/50 ML IV.SOLN IVPB ONE (10:31)
[2019-12-14] MEDS ORDERED: Acetaminophen 325 MG TABLET PO PRN ×2 (11:20→16:19)
[2019-12-14] MEDS ORDERED: Ondansetron 4 MG/2 ML VIAL IVP PRN ×3 (11:20→16:19)
[2019-12-14] MEDS ORDERED: Naloxone 0.4 MG/ML INJ IVP PRN ×2 (11:20→16:19)
[2019-12-14] MEDS ORDERED: Ringers Solution, Lactated 1,000 ML IVC ONE ×2 (11:44→16:19)
[2019-12-14] MEDS ORDERED: Potassium Chloride 20 MEQ, Lidocaine 1% 2 ML in 0.9 % Sodium Chloride 250 ML IVPB ONE ×2 (12:10→16:19)
[2019-12-14] MEDS ORDERED: D5% in Water 1,000 ML IVC PRN ×2 (12:14→16:19)
[2019-12-14] MEDS ORDERED: *HR* Dextrose 50 % in Water (Syg) 50 ML SYRINGE IVP PRN ×2 (12:14→16:19)
[2019-12-14] MEDS ORDERED: Dextrose Gel 15 GM/37.5 ML TUBE PO PRN ×4 (12:14→16:19)
[2019-12-14] MEDS ORDERED: *HR* FentaNYL (PF) 100 MCG/2 ML VIAL IVP PRN ×2 (12:30→16:19)
[2019-12-14] MEDS ORDERED: Ondansetron 4 MG/2 ML VIAL IVP ONE ×2 (12:30→16:19)
[2019-12-14] MEDS ORDERED: *HR* HYDROmorphone PF 0.5 MG/0.5 ML SYRINGE IVP PRN ×3 (12:30→16:19)
[2019-12-14] MEDS ORDERED: *HR* Meperidine 25 MG/ML SYRINGE IVP PRN ×2 (12:30→16:19)
[2019-12-14] MEDS ORDERED: *HR* HYDROmorphone 2 MG/ML SYRINGE IVP PRN ×2 (12:51→16:19)
[2019-12-14] MEDS ORDERED: Ondansetron 4 MG/2 ML VIAL ONE (13:19)
[2019-12-14] MEDS ORDERED: Lidocaine -MPF 2% 2 ML VIAL ONE (13:19)
[2019-12-14] MEDS ORDERED: *HR* Rocuronium Bromide 50 MG/5 ML VIAL ONE (13:19)
[2019-12-14] MEDS ORDERED: *HR* Succinylcholine 200 MG/10 ML VIAL IVP ONE (13:19)
[2019-12-14] MEDS ORDERED: *HR* Propofol 200 MG/20 ML VIAL IVP ONE (13:19)
[2019-12-14] MEDS ORDERED: *HR* FentaNYL (PF) 100 MCG/2 ML VIAL ONE ×2 (13:19→14:10)
[2019-12-14] MEDS ORDERED: Dexamethasone 4 MG/ML VIAL ONE (13:19)
[2019-12-14] MEDS ORDERED: Hydrocortisone Sodium Succ 100 MG/2 ML VIAL ONE (13:26)
[2019-12-14] MEDS ORDERED: *HR* PHENYLEPHRINE 1,000 MCG/10 ML SYRINGE IVP ONE (14:16)
[2019-12-14] MEDS: Insulin LISPRO 300 UNITS/3 ML VIAL SQ SCH (17:04)
[2019-12-14] MEDS ORDERED: LIDOCAINE HCL RC PRN (17:31)
[2019-12-14] MEDS ORDERED: Hydrocortisone Rectal 2.5% CRM 28 GM TUBE RC PRN (17:31)
[2019-12-14] MEDS ORDERED: Insulin LISPRO 300 UNITS/3 ML VIAL SQ SCH (18:00)
[2019-12-14 18:05] LABS: BUN/Creatinine Ratio 23 (6-26); Blood Urea Nitrogen 19 mg/dL (8-23); Calcium 7.7 mg/dL (8.6-10.3); Carbon Dioxide 21 mEq/L (23-29); Chloride 104 mEq/L (98-107); Glucose 114 mg/dL (70-105); Osmolality,Calculated 279 (280-300); Potassium 3.5 mEq/L (3.5-5.1); Sodium 133 mEq/L (136-145); eGFR For African Americans > 60 (> 60); eGFR For Non-African Americans > 60 (> 60)
[2019-12-14] MEDS ORDERED: Piperacillin/Tazobactam 3.375 GM in 0.9 % Sodium Chloride Mini Bag 100 ML IVPB SCH (20:00)
[2019-12-14] MEDS ORDERED: Clindamycin 900 MG/50 ML 900 MG/50 ML IV.SOLN IVPB SCH (21:00)
[2019-12-14] MEDS: Piperacillin/Tazobactam 3.375 GM in 0.9 % Sodium Chloride Mini Bag 100 ML IVPB SCH (21:39)
[2019-12-14] MEDS: Clindamycin 900 MG/50 ML 900 MG/50 ML IV.SOLN IVPB SCH (21:40)
[2019-12-15] MEDS: Insulin LISPRO 300 UNITS/3 ML VIAL SQ SCH ×4 (00:54→17:11)
[2019-12-15] MEDS ORDERED: Vancomycin 1,500 MG/265 ML IV.SOLN IVPB SCH ×2 (01:00)
[2019-12-15 03:23] LABS: Hematocrit 25.8 % (37.5-50.1); Hemoglobin 7.6 g/dL (12.9-16.9); Mean Corpuscular HGB Conc 29.5 g/dL (31.6-35.5); Mean Corpuscular Hemoglobin 24.9 pg (28.0-33.3); Mean Corpuscular Volume 84.6 fL (83.0-100.0); Mean Platelet Volume 8.9 fL (9.4-12.4); Platelet Count 317 K/mcL (140-400); Red Blood Count 3.05 M/mcL (4.19-5.50); Red Cell Distribution Width 16.9 % (11.5-14.5)
[2019-12-15 03:29] LABS: White Blood Count 30.3 K/mcL (4.3-11.1)
[2019-12-15 03:47] LABS: BUN/Creatinine Ratio 24 (6-26); Blood Urea Nitrogen 22 mg/dL (8-23); Calcium 7.6 mg/dL (8.6-10.3); Carbon Dioxide 20 mEq/L (23-29); Chloride 106 mEq/L (98-107); Glucose 169 mg/dL (70-105); Magnesium 1.7 mg/dL (1.6-2.6); Osmolality,Calculated 287 (280-300); Potassium 3.8 mEq/L (3.5-5.1); Sodium 135 mEq/L (136-145); eGFR For African Americans > 60 (> 60); eGFR For Non-African Americans > 60 (> 60)
[2019-12-15 04:01] LABS: Lymphocytes # 1.8 K/mcL (0.6-4.6); Neutrophils # 28.5 K/mcL (1.6-8.9)
[2019-12-15 04:02] LABS: Platelet Estimate Normal (Normal); Polychromasia 1+ (Not Present)
[2019-12-15 04:07] LABS: Folate 5.1 ng/mL (3.0-16.0)
[2019-12-15 04:23] LABS: Ferritin 180 ng/mL (20-250); Iron < 10 mcg/dL (65-175); Transferrin 116 mg/dL (203-362)
[2019-12-15] MEDS: Piperacillin/Tazobactam 3.375 GM in 0.9 % Sodium Chloride Mini Bag 100 ML IVPB SCH ×3 (04:24→20:19)
[2019-12-15] MEDS: Clindamycin 900 MG/50 ML 900 MG/50 ML IV.SOLN IVPB SCH ×2 (04:25→14:27)
[2019-12-15 08:03] LABS: Hematocrit 25.1 % (37.5-50.1); Hemoglobin 7.5 g/dL (12.9-16.9)
[2019-12-15] MEDS: Aspirin Enteric Coated 81 MG Tablet PO SCH (08:28)
[2019-12-15] MEDS: Isosorbide MONOnitrate (24 HR) 60 MG TAB.ER.24H PO SCH (08:29)
[2019-12-15] MEDS: Metoprolol XL (24 HR) Succ 25 MG TAB.ER.24H PO SCH (08:29)
[2019-12-15 08:48] LABS: Estimated Average Glucose 134 mg/dl
[2019-12-15] MEDS ORDERED: Lactobacillus 1 EACH CAP.SPRINK PO SCH ×2 (09:00)
[2019-12-15] MEDS ORDERED: Iron Sucrose Complex 400 MG in 0.9 % Sodium Chloride 250 ML IVPB ONE (09:31)
[2019-12-15] MEDS: Vancomycin Oral Soln 125 MG/2.5 ML UDC PO SCH ×4 (10:01→20:19)
[2019-12-15 10:56] LABS: Hematocrit 24.5 % (37.5-50.1); Hemoglobin 7.3 g/dL (12.9-16.9)
[2019-12-15] MEDS: 0.9 % Sodium Chloride 1,000 ML IVC SCH ×2 (11:00→20:20)
[2019-12-15 15:27] LABS: Basophils % 0.1 %; Eosinophils % 0.2 %; Hematocrit 24.3 % (37.5-50.1); Hemoglobin 7.1 g/dL (12.9-16.9); Lymphocytes # 0.8 K/mcL (0.6-4.6); Lymphocytes % 4.6 %; Mean Corpuscular HGB Conc 29.2 g/dL (31.6-35.5); Mean Corpuscular Hemoglobin 24.9 pg (28.0-33.3); Mean Corpuscular Volume 85.3 fL (83.0-100.0); Mean Platelet Volume 9.1 fL (9.4-12.4); Monocytes # 0.4 K/mcL (0.0-1.3); Monocytes % 2.3 %; Platelet Count 273 K/mcL (140-400); Red Blood Count 2.85 M/mcL (4.19-5.50); Red Cell Distribution Width 16.9 % (11.5-14.5); Segmented Neutrophils % 91.8 %; White Blood Count 17.6 K/mcL (4.3-11.1)
[2019-12-15 15:30] LABS: Neutrophils # 16.2 K/mcL (1.6-8.9)
[2019-12-15 18:24] LABS: Hematocrit 24.5 % (37.5-50.1); Hemoglobin 7.3 g/dL (12.9-16.9)
[2019-12-15 22:30] LABS: Hemoglobin 7.3 g/dL (12.9-16.9)
[2019-12-16] MEDS ORDERED: Vancomycin 1,500 MG/265 ML IV.SOLN IVPB SCH
[2019-12-16] MEDS: Insulin LISPRO 300 UNITS/3 ML VIAL SQ SCH ×4 (00:05→20:16)
[2019-12-16] MEDS: Piperacillin/Tazobactam 3.375 GM in 0.9 % Sodium Chloride Mini Bag 100 ML IVPB SCH ×3 (03:25→20:18)
[2019-12-16] MEDS: 0.9 % Sodium Chloride 1,000 ML IVC SCH (05:46)
[2019-12-16] MEDS ORDERED: *HR* Propofol 200 MG/20 ML VIAL IVP ONE (08:01)
[2019-12-16] MEDS ORDERED: *HR* FentaNYL (PF) 100 MCG/2 ML VIAL ONE (08:01)
[2019-12-16] MEDS ORDERED: Dexamethasone 4 MG/ML VIAL ONE (08:04)
[2019-12-16] MEDS ORDERED: Ondansetron 4 MG/2 ML VIAL ONE (08:04)
[2019-12-16] MEDS ORDERED: Lidocaine -MPF 2% 2 ML VIAL ONE (08:04)
[2019-12-16] MEDS ORDERED: *HR* OxyCODONE Immed Rel 5 MG TABLET PO PRN ×2 (08:18→10:40)
[2019-12-16] MEDS ORDERED: *HR* HYDROmorphone PF 0.5 MG/0.5 ML SYRINGE IVP PRN (08:18)
[2019-12-16] MEDS ORDERED: *HR* Midazolam HCl 2 MG/2 ML VIAL IVP PRN ×2 (08:18→10:40)
[2019-12-16] MEDS ORDERED: *HR* FentaNYL (PF) 100 MCG/2 ML VIAL IVP PRN (08:18)
[2019-12-16] MEDS ORDERED: *HR* Promethazine 25 MG/ML VIAL IVP PRN (08:18)
[2019-12-16] MEDS ORDERED: *HR* HYDROMORPHONE 2 MG/ML VIAL ONE (08:39)
[2019-12-16] MEDS ORDERED: Acetaminophen IV 1,000 MG/100 ML INFUS..BTL ONE (08:42)
[2019-12-16] MEDS: Metoprolol XL (24 HR) Succ 25 MG TAB.ER.24H PO SCH (09:00)
[2019-12-16] MEDS: Vancomycin Oral Soln 125 MG/2.5 ML UDC PO SCH ×4 (09:00→20:18)
[2019-12-16] MEDS: Isosorbide MONOnitrate (24 HR) 60 MG TAB.ER.24H PO SCH (09:00)
[2019-12-16] MEDS: Aspirin Enteric Coated 81 MG Tablet PO SCH (09:00)
[2019-12-16] MEDS ORDERED: *HR* Dextrose 50 % in Water (Syg) 50 ML SYRINGE IVP PRN (10:40)
[2019-12-16] MEDS ORDERED: Dextrose Gel 15 GM/37.5 ML TUBE PO PRN ×2 (10:40)
[2019-12-16] MEDS ORDERED: Hydrocortisone Rectal 2.5% CRM 28 GM TUBE RC PRN (10:40)
[2019-12-16] MEDS ORDERED: Naloxone 0.4 MG/ML INJ IVP PRN (10:40)
[2019-12-16] MEDS ORDERED: Ondansetron 4 MG/2 ML VIAL IVP PRN (10:40)
[2019-12-16] MEDS ORDERED: D5% in Water 1,000 ML IVC PRN (10:40)
[2019-12-16 11:38] LABS: Basophils % 0.1 %; Eosinophils # 0.2 K/mcL (0.0-0.6); Eosinophils % 1.7 %; Hematocrit 26.2 % (37.5-50.1); Hemoglobin 7.8 g/dL (12.9-16.9); Immature Granulocytes % 0.4 % (0-4); Lymphocytes # 0.4 K/mcL (0.6-4.6); Lymphocytes % 2.7 %; Mean Corpuscular HGB Conc 29.8 g/dL (31.6-35.5); Mean Corpuscular Hemoglobin 25.7 pg (28.0-33.3); Mean Corpuscular Volume 86.2 fL (83.0-100.0); Mean Platelet Volume 9.2 fL (9.4-12.4); Monocytes # 0.4 K/mcL (0.0-1.3); Neutrophils # 12.5 K/mcL (1.6-8.9); Platelet Count 275 K/mcL (140-400); Red Blood Count 3.04 M/mcL (4.19-5.50); Red Cell Distribution Width 17.2 % (11.5-14.5); Segmented Neutrophils % 92.1 %; White Blood Count 13.6 K/mcL (4.3-11.1)
[2019-12-16 11:47] LABS: BUN/Creatinine Ratio 18 (6-26); Blood Urea Nitrogen 14 mg/dL (8-23); Calcium 7.4 mg/dL (8.6-10.3); Carbon Dioxide 21 mEq/L (23-29); Chloride 108 mEq/L (98-107); Glucose 94 mg/dL (70-105); Osmolality,Calculated 284 (280-300); Potassium 3.6 mEq/L (3.5-5.1); Sodium 137 mEq/L (136-145); eGFR For African Americans > 60 (> 60); eGFR For Non-African Americans > 60 (> 60)
[2019-12-16] MEDS ORDERED: Insulin LISPRO 300 UNITS/3 ML VIAL SQ SCH (12:00)
[2019-12-16] MEDS: Acetaminophen IV 1,000 MG/100 ML INFUS..BTL IVPB SCH ×2 (12:29→18:14)
[2019-12-16] MEDS: Gabapentin 300 MG CAPSULE PO SCH ×2 (15:54→20:17)
[2019-12-17] MEDS: Acetaminophen IV 1,000 MG/100 ML INFUS..BTL IVPB SCH ×4 (01:02→18:06)
[2019-12-17] MEDS: Vancomycin 1,500 MG/265 ML IV.SOLN IVPB SCH (01:02)
[2019-12-17] MEDS: Piperacillin/Tazobactam 3.375 GM in 0.9 % Sodium Chloride Mini Bag 100 ML IVPB SCH ×3 (04:28→21:52)
[2019-12-17 05:52] LABS: Basophils % 0.1 %; Hematocrit 28.9 % (37.5-50.1); Hemoglobin 8.7 g/dL (12.9-16.9); Immature Granulocytes % 0.7 % (0-4); Lymphocytes # 0.7 K/mcL (0.6-4.6); Lymphocytes % 4.4 %; Mean Corpuscular HGB Conc 30.1 g/dL (31.6-35.5); Mean Corpuscular Hemoglobin 25.1 pg (28.0-33.3); Mean Corpuscular Volume 83.3 fL (83.0-100.0); Mean Platelet Volume 9.5 fL (9.4-12.4); Monocytes # 0.6 K/mcL (0.0-1.3); Monocytes % 3.5 %; Neutrophils # 14.7 K/mcL (1.6-8.9); Platelet Count 306 K/mcL (140-400); Red Blood Count 3.47 M/mcL (4.19-5.50); Red Cell Distribution Width 17.2 % (11.5-14.5); Segmented Neutrophils % 91.3 %; White Blood Count 16.1 K/mcL (4.3-11.1)
[2019-12-17 06:04] LABS: BUN/Creatinine Ratio 28 (6-26); Blood Urea Nitrogen 22 mg/dL (8-23); Calcium 7.6 mg/dL (8.6-10.3); Carbon Dioxide 19 mEq/L (23-29); Chloride 112 mEq/L (98-107); Glucose 196 mg/dL (70-105); Osmolality,Calculated 295 (280-300); Potassium 4.5 mEq/L (3.5-5.1); Sodium 138 mEq/L (136-145); eGFR For African Americans > 60 (> 60); eGFR For Non-African Americans > 60 (> 60)
[2019-12-17] MEDS: Isosorbide MONOnitrate (24 HR) 60 MG TAB.ER.24H PO SCH (08:49)
[2019-12-17] MEDS: Gabapentin 300 MG CAPSULE PO SCH ×3 (08:49→21:55)
[2019-12-17] MEDS: Metoprolol XL (24 HR) Succ 25 MG TAB.ER.24H PO SCH (08:50)
[2019-12-17] MEDS: Insulin LISPRO 300 UNITS/3 ML VIAL SQ SCH ×4 (08:53→21:59)
[2019-12-17] MEDS: Vancomycin Oral Soln 125 MG/2.5 ML UDC PO SCH ×4 (08:54→22:15)
[2019-12-17] MEDS ORDERED: Aspirin Enteric Coated 81 MG Tablet PO SCH (09:00)
[2019-12-17] MEDS ORDERED: predniSONE 10 MG TABLET PO SCH (13:15)
[2019-12-17 17:06] LABS: Hemoglobin 7.6 g/dL (12.9-16.9)
[2019-12-17] MEDS ORDERED: 0.9 % Sodium Chloride 250 ML ONE (17:31)
[2019-12-17] MEDS ORDERED: Isovue-370 500 ML BOTTLE IVP ONE (21:31)
[2019-12-17] MEDS: Pantoprazole 40 MG VIAL IVP SCH (21:55)
[2019-12-17] MEDS ORDERED: methylPREDNISolone 125 MG/2 ML VIAL IVP ONE (22:30)
[2019-12-17 23:00] LABS: Hematocrit 25.4 % (37.5-50.1); Hemoglobin 7.5 g/dL (12.9-16.9)
[2019-12-17] MEDS ORDERED: SODIUM CHLORIDE/NAHCO3/KCL/PEG 4,000 ML SOLN.RECON PO ONE (23:45)
[2019-12-18] MEDS: Acetaminophen IV 1,000 MG/100 ML INFUS..BTL IVPB SCH ×4 (01:07→23:41)
[2019-12-18] MEDS: Vancomycin 1,500 MG/265 ML IV.SOLN IVPB SCH ×2 (01:08→12:40)
[2019-12-18 01:18] LABS: Hemoglobin 7.2 g/dL (12.9-16.9)
[2019-12-18] MEDS ORDERED: *HR* Propofol 200 MG/20 ML VIAL IVP ONE (01:49)
[2019-12-18] MEDS ORDERED: 0.9 % Sodium Chloride 250 ML ONE ×2 (01:50→16:10)
[2019-12-18] MEDS ORDERED: *HR* EPINEPHrine 1 MG/10 ML SYRINGE ONE (03:58)
[2019-12-18] MEDS: Calcium Gluconate 1gm/50mL 1 GM/50 ML BAG IVPB SCH ×2 (05:04→05:26)
[2019-12-18] MEDS: Piperacillin/Tazobactam 3.375 GM in 0.9 % Sodium Chloride Mini Bag 100 ML IVPB SCH ×3 (05:06→20:06)
[2019-12-18 05:08] LABS: BUN/Creatinine Ratio 24 (6-26); Blood Urea Nitrogen 27 mg/dL (8-23); Calcium 7.1 mg/dL (8.6-10.3); Carbon Dioxide 17 mEq/L (23-29); Chloride 109 mEq/L (98-107); Glucose 208 mg/dL (70-105); Magnesium 1.9 mg/dL (1.6-2.6); Osmolality,Calculated 293 (280-300); Potassium 3.5 mEq/L (3.5-5.1); Sodium 136 mEq/L (136-145); eGFR For African Americans > 60 (> 60); eGFR For Non-African Americans > 60 (> 60)
[2019-12-18] MEDS: Pantoprazole 40 MG VIAL IVP SCH (05:28)
[2019-12-18 05:47] LABS: Basophils % 0.2 %; Hematocrit 33.1 % (37.5-50.1); Hemoglobin 9.7 g/dL (12.9-16.9); Immature Granulocytes % 1.3 % (0-4); Lymphocytes # 1.1 K/mcL (0.6-4.6); Lymphocytes % 6.3 %; Mean Corpuscular HGB Conc 29.3 g/dL (31.6-35.5); Mean Corpuscular Hemoglobin 26.3 pg (28.0-33.3); Mean Corpuscular Volume 89.7 fL (83.0-100.0); Mean Platelet Volume 10.6 fL (9.4-12.4); Monocytes # 0.4 K/mcL (0.0-1.3); Monocytes % 2.3 %; Neutrophils # 15.9 K/mcL (1.6-8.9); Nucleated Red Blood Cells 0.1 /100 WBC (0); Platelet Count 287 K/mcL (140-400); Red Blood Count 3.69 M/mcL (4.19-5.50); Red Cell Distribution Width 16.7 % (11.5-14.5); Segmented Neutrophils % 89.9 %; White Blood Count 17.7 K/mcL (4.3-11.1)
[2019-12-18 06:00] LABS: INR 1.2; Prothrombin Time 13.4 Seconds (9.4-12.1)
[2019-12-18 06:03] LABS: Activated Partial Thrombo Time 24.3 Seconds (26.0-36.0)
[2019-12-18] MEDS: 0.9 % Sodium Chloride 1,000 ML IVC SCH (08:37)
[2019-12-18] MEDS: Vancomycin Oral Soln 125 MG/2.5 ML UDC PO SCH ×4 (08:39→20:06)
[2019-12-18] MEDS: Metoprolol XL (24 HR) Succ 25 MG TAB.ER.24H PO SCH (08:40)
[2019-12-18] MEDS: Isosorbide MONOnitrate (24 HR) 60 MG TAB.ER.24H PO SCH (08:41)
[2019-12-18] MEDS: Gabapentin 300 MG CAPSULE PO SCH ×3 (08:41→20:03)
[2019-12-18] MEDS: Insulin LISPRO 300 UNITS/3 ML VIAL SQ SCH ×4 (09:54→19:52)
[2019-12-18] MEDS: methylPREDNISolone 125 MG/2 ML VIAL IVP SCH ×2 (12:39→18:25)
[2019-12-18] MEDS: *HR* HYDROcodone/Acet 10/325 mg TABLET PO PRN (12:54)
[2019-12-18 13:30] LABS: Hematocrit 22.8 % (37.5-50.1)
[2019-12-18 13:49] LABS: Hemoglobin 7.1 g/dL (12.9-16.9)
[2019-12-18] MEDS ORDERED: Isovue-370 500 ML BOTTLE IVP ONE (16:41)
[2019-12-18] MEDS ORDERED: methylPREDNISolone 125 MG/2 ML VIAL IVP SCH (21:00)
[2019-12-18] MEDS ORDERED: Benzocaine/Menthol 56 GM AEROSOL SPRAY TP PRN (21:08)
[2019-12-18 23:55] LABS: Hematocrit 21.9 % (37.5-50.1)
[2019-12-19] MEDS: Acetaminophen IV 1,000 MG/100 ML INFUS..BTL IVPB SCH ×5 (00:50→23:58)
[2019-12-19] MEDS: Vancomycin 1,500 MG/265 ML IV.SOLN IVPB SCH ×2 (00:53→15:37)
[2019-12-19] MEDS: 0.9 % Sodium Chloride 1,000 ML IVC SCH (03:14)
[2019-12-19] MEDS: methylPREDNISolone 125 MG/2 ML VIAL IVP SCH ×3 (03:15→17:51)
[2019-12-19] MEDS: Piperacillin/Tazobactam 3.375 GM in 0.9 % Sodium Chloride Mini Bag 100 ML IVPB SCH ×3 (03:18→19:37)
[2019-12-19] MEDS ORDERED: 0.9 % Sodium Chloride 250 ML ONE (04:10)
[2019-12-19] MEDS: Isosorbide MONOnitrate (24 HR) 60 MG TAB.ER.24H PO SCH (09:07)
[2019-12-19] MEDS: Gabapentin 300 MG CAPSULE PO SCH ×3 (09:07→19:37)
[2019-12-19] MEDS: Vancomycin Oral Soln 125 MG/2.5 ML UDC PO SCH ×4 (09:08→19:37)
[2019-12-19] MEDS: Insulin LISPRO 300 UNITS/3 ML VIAL SQ SCH ×4 (09:09→22:39)
[2019-12-19 09:38] LABS: Basophils % 0.1 %; Hematocrit 25.9 % (37.5-50.1); Hemoglobin 8.2 g/dL (12.9-16.9); Immature Granulocytes % 3.1 % (0-4); Lymphocytes % 7.5 %; Mean Corpuscular HGB Conc 31.7 g/dL (31.6-35.5); Mean Corpuscular Hemoglobin 28.2 pg (28.0-33.3); Mean Platelet Volume 9.7 fL (9.4-12.4); Monocytes # 0.6 K/mcL (0.0-1.3); Monocytes % 4.4 %; Neutrophils # 11.6 K/mcL (1.6-8.9); Nucleated Red Blood Cells 0.4 /100 WBC (0); Platelet Count 238 K/mcL (140-400); Red Blood Count 2.91 M/mcL (4.19-5.50); Red Cell Distribution Width 16.9 % (11.5-14.5); Segmented Neutrophils % 84.9 %; White Blood Count 13.7 K/mcL (4.3-11.1)
[2019-12-19 09:58] LABS: BUN/Creatinine Ratio 30 (6-26); Blood Urea Nitrogen 25 mg/dL (8-23); Carbon Dioxide 24 mEq/L (23-29); Chloride 112 mEq/L (98-107); Glucose 134 mg/dL (70-105); Osmolality,Calculated 296 (280-300); Potassium 3.8 mEq/L (3.5-5.1); Sodium 140 mEq/L (136-145); eGFR For African Americans > 60 (> 60); eGFR For Non-African Americans > 60 (> 60)
[2019-12-19] MEDS ORDERED: Calcium Gluconate 1gm/50mL 1 GM/50 ML BAG IVPB ONE (10:58)
[2019-12-19] MEDS: Pantoprazole 40 MG VIAL IVP SCH (11:27)
[2019-12-19] MEDS: *HR* HYDROcodone/Acet 10/325 mg TABLET PO PRN ×2 (11:28→22:48)
[2019-12-19 18:21] LABS: Hematocrit 24.7 % (37.5-50.1); Hemoglobin 7.8 g/dL (12.9-16.9)
[2019-12-19 22:05] LABS: Hematocrit 23.8 % (37.5-50.1); Hemoglobin 7.6 g/dL (12.9-16.9)
[2019-12-20] MEDS: Vancomycin 1,500 MG/265 ML IV.SOLN IVPB SCH ×2 (01:45→15:42)
[2019-12-20] MEDS: methylPREDNISolone 125 MG/2 ML VIAL IVP SCH ×3 (01:47→15:45)
[2019-12-20 02:13] LABS: Basophils % 0.2 %; Eosinophils % 0.1 %; Hematocrit 24.6 % (37.5-50.1); Hemoglobin 7.6 g/dL (12.9-16.9); Lymphocytes # 1.1 K/mcL (0.6-4.6); Lymphocytes % 8.8 %; Mean Corpuscular HGB Conc 30.9 g/dL (31.6-35.5); Mean Corpuscular Hemoglobin 27.6 pg (28.0-33.3); Mean Corpuscular Volume 89.5 fL (83.0-100.0); Mean Platelet Volume 9.6 fL (9.4-12.4); Monocytes # 0.5 K/mcL (0.0-1.3); Monocytes % 3.8 %; Neutrophils # 10.7 K/mcL (1.6-8.9); Nucleated Red Blood Cells 0.6 /100 WBC (0); Platelet Count 246 K/mcL (140-400); Red Blood Count 2.75 M/mcL (4.19-5.50); Red Cell Distribution Width 17.4 % (11.5-14.5); Segmented Neutrophils % 84.1 %; White Blood Count 12.7 K/mcL (4.3-11.1)
[2019-12-20 02:35] LABS: BUN/Creatinine Ratio 25 (6-26); Blood Urea Nitrogen 17 mg/dL (8-23); Calcium 6.7 mg/dL (8.6-10.3); Carbon Dioxide 23 mEq/L (23-29); Chloride 111 mEq/L (98-107); Glucose 141 mg/dL (70-105); Osmolality,Calculated 286 (280-300); Potassium 3.8 mEq/L (3.5-5.1); Sodium 136 mEq/L (136-145); eGFR For African Americans > 60 (> 60); eGFR For Non-African Americans > 60 (> 60)
[2019-12-20] MEDS: Piperacillin/Tazobactam 3.375 GM in 0.9 % Sodium Chloride Mini Bag 100 ML IVPB SCH ×3 (04:49→20:38)
[2019-12-20] MEDS: Pantoprazole 40 MG VIAL IVP SCH (04:49)
[2019-12-20 05:29] LABS: Hematocrit 26.5 % (37.5-50.1); Hemoglobin 8.5 g/dL (12.9-16.9)
[2019-12-20] MEDS ORDERED: Aquaphor/Maalox 50 GM BOTTLE TP PRN (07:27)
[2019-12-20] MEDS: Acetaminophen IV 1,000 MG/100 ML INFUS..BTL IVPB SCH ×4 (07:31→23:24)
[2019-12-20] MEDS: Insulin LISPRO 300 UNITS/3 ML VIAL SQ SCH ×4 (07:32→20:49)
[2019-12-20] MEDS: Gabapentin 300 MG CAPSULE PO SCH ×3 (07:33→20:37)
[2019-12-20] MEDS: Isosorbide MONOnitrate (24 HR) 60 MG TAB.ER.24H PO SCH (07:33)
[2019-12-20] MEDS: Vancomycin Oral Soln 125 MG/2.5 ML UDC PO SCH ×4 (07:33→20:36)
[2019-12-20] MEDS: *HR* HYDROcodone/Acet 10/325 mg TABLET PO PRN (07:33)
[2019-12-20] MEDS ORDERED: 0.9 % Sodium Chloride 1,000 ML ONE (10:23)
[2019-12-20] MEDS ORDERED: INFLIXIMAB DYYB IVPB SCH (11:00)
[2019-12-20] MEDS ORDERED: SODIUM CHLORIDE 0.9% IVPB SCH (11:00)
[2019-12-20 14:33] LABS: Hemoglobin 7.4 g/dL (12.9-16.9)
[2019-12-20] MEDS ORDERED: Isovue-370 500 ML BOTTLE IVP ONE (15:08)
[2019-12-20] MEDS: *HR* OxyCODONE Oral Soln 5 MG/5 ML UD.LIQ PO PRN ×2 (15:45→21:43)
[2019-12-20] MEDS ORDERED: 0.9 % Sodium Chloride 250 ML IVC SCH (16:15)
[2019-12-21 00:23] LABS: Hemoglobin 6.9 g/dL (12.9-16.9)
[2019-12-21] MEDS: methylPREDNISolone 125 MG/2 ML VIAL IVP SCH ×3 (02:44→16:19)
[2019-12-21] MEDS: Vancomycin 1,500 MG/265 ML IV.SOLN IVPB SCH ×2 (02:48→13:55)
[2019-12-21] MEDS: Piperacillin/Tazobactam 3.375 GM in 0.9 % Sodium Chloride Mini Bag 100 ML IVPB SCH ×3 (04:17→19:45)
[2019-12-21] MEDS: *HR* OxyCODONE Oral Soln 5 MG/5 ML UD.LIQ PO PRN ×2 (05:53→21:01)
[2019-12-21] MEDS: Pantoprazole 40 MG VIAL IVP SCH (05:54)
[2019-12-21] MEDS: Acetaminophen IV 1,000 MG/100 ML INFUS..BTL IVPB SCH ×4 (05:57→23:25)
[2019-12-21 07:13] LABS: Hematocrit 24.3 % (37.5-50.1); Hemoglobin 7.6 g/dL (12.9-16.9); Mean Corpuscular HGB Conc 31.3 g/dL (31.6-35.5); Mean Corpuscular Volume 92.7 fL (83.0-100.0); Mean Platelet Volume 9.8 fL (9.4-12.4); Platelet Count 239 K/mcL (140-400); Red Blood Count 2.62 M/mcL (4.19-5.50); Red Cell Distribution Width 17.2 % (11.5-14.5); White Blood Count 17.2 K/mcL (4.3-11.1)
[2019-12-21 07:31] LABS: BUN/Creatinine Ratio 24 (6-26); Blood Urea Nitrogen 18 mg/dL (8-23); Calcium 6.7 mg/dL (8.6-10.3); Carbon Dioxide 23 mEq/L (23-29); Chloride 109 mEq/L (98-107); Glucose 152 mg/dL (70-105); Osmolality,Calculated 285 (280-300); Potassium 3.8 mEq/L (3.5-5.1); Sodium 135 mEq/L (136-145); eGFR For African Americans > 60 (> 60); eGFR For Non-African Americans > 60 (> 60)
[2019-12-21] MEDS: Isosorbide MONOnitrate (24 HR) 60 MG TAB.ER.24H PO SCH (07:39)
[2019-12-21] MEDS: Gabapentin 300 MG CAPSULE PO SCH ×3 (07:39→19:46)
[2019-12-21] MEDS: Insulin LISPRO 300 UNITS/3 ML VIAL SQ SCH ×4 (07:45→21:00)
[2019-12-21] MEDS: Vancomycin Oral Soln 125 MG/2.5 ML UDC PO SCH ×4 (09:21→19:46)
[2019-12-21 21:43] LABS: Hematocrit 24.7 % (37.5-50.1); Hemoglobin 7.6 g/dL (12.9-16.9)
[2019-12-22] MEDS: methylPREDNISolone 125 MG/2 ML VIAL IVP SCH ×2 (01:08→11:52)
[2019-12-22] MEDS: Vancomycin 1,500 MG/265 ML IV.SOLN IVPB SCH ×2 (01:14→14:28)
[2019-12-22] MEDS: Piperacillin/Tazobactam 3.375 GM in 0.9 % Sodium Chloride Mini Bag 100 ML IVPB SCH ×3 (03:44→20:37)
[2019-12-22 04:35] LABS: Basophils % 0.1 %; Hematocrit 24.4 % (37.5-50.1); Hemoglobin 7.4 g/dL (12.9-16.9); Immature Granulocytes % 2.6 % (0-4); Lymphocytes # 0.9 K/mcL (0.6-4.6); Lymphocytes % 4.8 %; Mean Corpuscular HGB Conc 30.3 g/dL (31.6-35.5); Mean Corpuscular Hemoglobin 28.4 pg (28.0-33.3); Mean Corpuscular Volume 93.5 fL (83.0-100.0); Mean Platelet Volume 9.8 fL (9.4-12.4); Monocytes # 0.3 K/mcL (0.0-1.3); Monocytes % 1.9 %; Neutrophils # 16.1 K/mcL (1.6-8.9); Nucleated Red Blood Cells 0.7 /100 WBC (0); Platelet Count 287 K/mcL (140-400); Red Blood Count 2.61 M/mcL (4.19-5.50); Red Cell Distribution Width 17.8 % (11.5-14.5); Segmented Neutrophils % 90.6 %; White Blood Count 17.8 K/mcL (4.3-11.1)
[2019-12-22 04:47] LABS: BUN/Creatinine Ratio 20 (6-26); Blood Urea Nitrogen 14 mg/dL (8-23); Calcium 6.7 mg/dL (8.6-10.3); Carbon Dioxide 23 mEq/L (23-29); Chloride 110 mEq/L (98-107); Glucose 149 mg/dL (70-105); Osmolality,Calculated 285 (280-300); Potassium 3.6 mEq/L (3.5-5.1); Sodium 136 mEq/L (136-145); eGFR For African Americans > 60 (> 60); eGFR For Non-African Americans > 60 (> 60)
[2019-12-22] MEDS: Pantoprazole 40 MG VIAL IVP SCH (05:22)
[2019-12-22] MEDS: Acetaminophen IV 1,000 MG/100 ML INFUS..BTL IVPB SCH ×4 (05:23→23:50)
[2019-12-22] MEDS: Gabapentin 300 MG CAPSULE PO SCH ×3 (08:14→20:37)
[2019-12-22] MEDS: Vancomycin Oral Soln 125 MG/2.5 ML UDC PO SCH ×4 (08:14→20:37)
[2019-12-22] MEDS: Isosorbide MONOnitrate (24 HR) 60 MG TAB.ER.24H PO SCH (08:14)
[2019-12-22] MEDS: Insulin LISPRO 300 UNITS/3 ML VIAL SQ SCH ×4 (08:15→20:38)
[2019-12-22] MEDS: MethylPREDNISolone 40 MG/ML VIAL IVP SCH (20:38)
[2019-12-23] MEDS: Vancomycin 1,500 MG/265 ML IV.SOLN IVPB SCH ×2 (02:11→15:01)
[2019-12-23] MEDS: MethylPREDNISolone 40 MG/ML VIAL IVP SCH ×3 (04:02→13:44)
[2019-12-23] MEDS: Piperacillin/Tazobactam 3.375 GM in 0.9 % Sodium Chloride Mini Bag 100 ML IVPB SCH ×3 (04:02→20:28)
[2019-12-23 04:48] LABS: Hematocrit 23.3 % (37.5-50.1); Hemoglobin 6.9 g/dL (12.9-16.9); Mean Corpuscular HGB Conc 29.6 g/dL (31.6-35.5); Mean Corpuscular Volume 94.7 fL (83.0-100.0); Mean Platelet Volume 9.6 fL (9.4-12.4); Platelet Count 287 K/mcL (140-400); Red Blood Count 2.46 M/mcL (4.19-5.50); Red Cell Distribution Width 18.5 % (11.5-14.5); White Blood Count 19.6 K/mcL (4.3-11.1)
[2019-12-23] MEDS: Pantoprazole 40 MG VIAL IVP SCH (04:52)
[2019-12-23] MEDS: Acetaminophen IV 1,000 MG/100 ML INFUS..BTL IVPB SCH ×3 (04:52→18:20)
[2019-12-23 05:04] LABS: BUN/Creatinine Ratio 23 (6-26); Blood Urea Nitrogen 14 mg/dL (8-23); Calcium 6.2 mg/dL (8.6-10.3); Carbon Dioxide 19 mEq/L (23-29); Chloride 114 mEq/L (98-107); Glucose 134 mg/dL (70-105); Osmolality,Calculated 286 (280-300); Potassium 3.4 mEq/L (3.5-5.1); Sodium 137 mEq/L (136-145); eGFR For African Americans > 60 (> 60); eGFR For Non-African Americans > 60 (> 60)
[2019-12-23] MEDS: Insulin LISPRO 300 UNITS/3 ML VIAL SQ SCH ×4 (07:30→20:34)
[2019-12-23] MEDS: Isosorbide MONOnitrate (24 HR) 60 MG TAB.ER.24H PO SCH (08:58)
[2019-12-23] MEDS: Gabapentin 300 MG CAPSULE PO SCH ×3 (09:00→20:29)
[2019-12-23] MEDS: Vancomycin Oral Soln 125 MG/2.5 ML UDC PO SCH ×4 (09:00→20:29)
[2019-12-23] MEDS: Metoprolol XL (24 HR) Succ 25 MG TAB.ER.24H PO SCH (09:00)
[2019-12-23] MEDS ORDERED: Calcium Gluconate 1gm/50mL 1 GM/50 ML BAG IVPB ONE (11:05)
[2019-12-23] MEDS ORDERED: 0.9 % Sodium Chloride 250 ML ONE (12:45)
[2019-12-23 17:14] LABS: Hematocrit 27.7 % (37.5-50.1); Hemoglobin 8.8 g/dL (12.9-16.9)
[2019-12-24] MEDS: Acetaminophen IV 1,000 MG/100 ML INFUS..BTL IVPB SCH ×4 (01:17→23:48)
[2019-12-24] MEDS: Vancomycin 1,500 MG/265 ML IV.SOLN IVPB SCH ×2 (01:18→14:16)
[2019-12-24] MEDS: MethylPREDNISolone 40 MG/ML VIAL IVP SCH ×2 (01:18→23:51)
[2019-12-24] MEDS: Piperacillin/Tazobactam 3.375 GM in 0.9 % Sodium Chloride Mini Bag 100 ML IVPB SCH ×3 (04:11→20:44)
[2019-12-24] MEDS: Pantoprazole 40 MG VIAL IVP SCH (05:45)
[2019-12-24 06:02] LABS: Basophils % 0.1 %; Hematocrit 30.8 % (37.5-50.1); Hemoglobin 9.5 g/dL (12.9-16.9); Immature Granulocytes % 1.2 % (0-4); Lymphocytes # 0.8 K/mcL (0.6-4.6); Lymphocytes % 3.7 %; Mean Corpuscular HGB Conc 30.8 g/dL (31.6-35.5); Mean Corpuscular Hemoglobin 28.5 pg (28.0-33.3); Mean Corpuscular Volume 92.5 fL (83.0-100.0); Mean Platelet Volume 9.4 fL (9.4-12.4); Monocytes # 0.6 K/mcL (0.0-1.3); Monocytes % 2.8 %; Neutrophils # 19.4 K/mcL (1.6-8.9); Nucleated Red Blood Cells 0.2 /100 WBC (0); Platelet Count 335 K/mcL (140-400); Red Blood Count 3.33 M/mcL (4.19-5.50); Red Cell Distribution Width 19.6 % (11.5-14.5); Segmented Neutrophils % 92.2 %; White Blood Count 21.1 K/mcL (4.3-11.1)
[2019-12-24 06:05] LABS: INR 1.1; Prothrombin Time 12.7 Seconds (9.4-12.1)
[2019-12-24 06:22] LABS: Alanine Aminotransferase 17 Units/L (7-52); Albumin 2.3 g/dL (3.5-5.7); Albumin/Globulin Ratio 1.2 (1.1-2.2); Alkaline Phosphatase 67 Units/L (34-104); Aspartate Amino Transferase 22 Units/L (13-39); BUN/Creatinine Ratio 21 (6-26); Bilirubin,Total 0.5 mg/dL (0.3-1.0); Blood Urea Nitrogen 13 mg/dL (8-23); Calcium 7.1 mg/dL (8.6-10.3); Carbon Dioxide 24 mEq/L (23-29); Chloride 111 mEq/L (98-107); Glucose 144 mg/dL (70-105); Osmolality,Calculated 287 (280-300); Potassium 3.9 mEq/L (3.5-5.1); Sodium 137 mEq/L (136-145); Total Protein 4.3 g/dL (6.4-8.9); eGFR For African Americans > 60 (> 60); eGFR For Non-African Americans > 60 (> 60)
[2019-12-24] MEDS ORDERED: Calcium Gluconate 1gm/50mL 1 GM/50 ML BAG IVPB ONE (07:19)
[2019-12-24] MEDS: Insulin LISPRO 300 UNITS/3 ML VIAL SQ SCH ×4 (07:40→20:42)
[2019-12-24] MEDS: Metoprolol XL (24 HR) Succ 25 MG TAB.ER.24H PO SCH (07:59)
[2019-12-24] MEDS ORDERED: *HR* OxyCODONE Immed Rel 5 MG TABLET PO PRN (08:28)
[2019-12-24] MEDS ORDERED: Albuterol 2.5 MG/3 ML NEBULIZER IH PRN (08:28)
[2019-12-24] MEDS ORDERED: *HR* FentaNYL (PF) 100 MCG/2 ML VIAL IVP PRN (08:28)
[2019-12-24] MEDS ORDERED: *HR* HYDROmorphone PF 0.5 MG/0.5 ML SYRINGE IVP PRN (08:28)
[2019-12-24] MEDS ORDERED: Ondansetron 4 MG/2 ML VIAL IVP ONE (08:28)
[2019-12-24] MEDS ORDERED: Ringers Solution, Lactated 1,000 ML IVC SCH (08:30)
[2019-12-24] MEDS: Gabapentin 300 MG CAPSULE PO SCH ×3 (08:57→20:47)
[2019-12-24] MEDS: Vancomycin Oral Soln 125 MG/2.5 ML UDC PO SCH ×3 (08:57→20:46)
[2019-12-24] MEDS: Isosorbide MONOnitrate (24 HR) 60 MG TAB.ER.24H PO SCH (08:58)
[2019-12-24] MEDS ORDERED: *HR* Propofol 200 MG/20 ML VIAL IVP ONE (10:50)
[2019-12-24] MEDS ORDERED: *HR* FentaNYL (PF) 100 MCG/2 ML VIAL ONE (10:50)
[2019-12-24] MEDS ORDERED: Lidocaine -MPF 2% 2 ML VIAL ONE (10:51)
[2019-12-24] MEDS ORDERED: Dexamethasone 4 MG/ML VIAL ONE (10:51)
[2019-12-24] MEDS ORDERED: Ondansetron 4 MG/2 ML VIAL ONE (10:51)
[2019-12-24] MEDS ORDERED: Hydrocortisone Sodium Succ 100 MG/2 ML VIAL ONE (10:59)
[2019-12-24] MEDS ORDERED: Benzocaine/Menthol 56 GM AEROSOL SPRAY TP PRN (13:13)
[2019-12-24] MEDS ORDERED: D5% in Water 1,000 ML IVC PRN (13:13)
[2019-12-24] MEDS ORDERED: Dextrose Gel 15 GM/37.5 ML TUBE PO PRN ×2 (13:13)
[2019-12-24] MEDS ORDERED: Naloxone 0.4 MG/ML INJ IVP PRN (13:13)
[2019-12-24] MEDS ORDERED: Hydrocortisone Rectal 2.5% CRM 28 GM TUBE RC PRN (13:13)
[2019-12-24] MEDS ORDERED: Ondansetron 4 MG/2 ML VIAL IVP PRN (13:13)
[2019-12-24] MEDS ORDERED: *HR* Dextrose 50 % in Water (Syg) 50 ML SYRINGE IVP PRN (13:13)
[2019-12-24] MEDS: *HR* Heparin 5,000 UNIT/ML VIAL SQ SCH (16:52)
[2019-12-24] MEDS ORDERED: *HR* Heparin 5,000 UNIT/ML VIAL SQ SCH (18:00)
[2019-12-25 00:47] LABS: Basophils % 0.1 %; Eosinophils % 0.1 %; Hematocrit 27.6 % (37.5-50.1); Hemoglobin 8.5 g/dL (12.9-16.9); Immature Granulocytes % 0.7 % (0-4); Lymphocytes % 5.9 %; Mean Corpuscular HGB Conc 30.8 g/dL (31.6-35.5); Mean Corpuscular Hemoglobin 28.2 pg (28.0-33.3); Mean Corpuscular Volume 91.7 fL (83.0-100.0); Mean Platelet Volume 9.7 fL (9.4-12.4); Monocytes # 0.7 K/mcL (0.0-1.3); Monocytes % 3.7 %; Neutrophils # 15.8 K/mcL (1.6-8.9); Nucleated Red Blood Cells 0.2 /100 WBC (0); Platelet Count 308 K/mcL (140-400); Red Blood Count 3.01 M/mcL (4.19-5.50); Red Cell Distribution Width 19.6 % (11.5-14.5); Segmented Neutrophils % 89.5 %; White Blood Count 17.6 K/mcL (4.3-11.1)
[2019-12-25 00:58] LABS: BUN/Creatinine Ratio 18 (6-26); Blood Urea Nitrogen 13 mg/dL (8-23); Calcium 6.6 mg/dL (8.6-10.3); Carbon Dioxide 24 mEq/L (23-29); Chloride 110 mEq/L (98-107); Glucose 152 mg/dL (70-105); Osmolality,Calculated 287 (280-300); Potassium 3.8 mEq/L (3.5-5.1); Sodium 137 mEq/L (136-145); eGFR For African Americans > 60 (> 60); eGFR For Non-African Americans > 60 (> 60)
[2019-12-25] MEDS: Vancomycin 1,500 MG/265 ML IV.SOLN IVPB SCH (01:31)
[2019-12-25] MEDS: Piperacillin/Tazobactam 3.375 GM in 0.9 % Sodium Chloride Mini Bag 100 ML IVPB SCH ×2 (03:39→11:29)
[2019-12-25] MEDS ORDERED: Pantoprazole 40 MG VIAL IVP SCH (06:00)
[2019-12-25] MEDS: Acetaminophen IV 1,000 MG/100 ML INFUS..BTL IVPB SCH ×3 (06:23→16:19)
[2019-12-25] MEDS: *HR* Heparin 5,000 UNIT/ML VIAL SQ SCH ×2 (06:24→16:18)
[2019-12-25 08:09] LABS: Hemoglobin 9.3 g/dL (12.9-16.9)
[2019-12-25] MEDS: Insulin LISPRO 300 UNITS/3 ML VIAL SQ SCH ×3 (08:48→16:18)
[2019-12-25] MEDS: Isosorbide MONOnitrate (24 HR) 30 MG TAB.ER.24H PO SCH (08:49)
[2019-12-25] MEDS: Vancomycin Oral Soln 125 MG/2.5 ML UDC PO SCH ×4 (08:50→20:14)
[2019-12-25] MEDS: Gabapentin 300 MG CAPSULE PO SCH ×3 (08:50→20:15)
[2019-12-25] MEDS: Metoprolol XL (24 HR) Succ 25 MG TAB.ER.24H PO SCH (08:50)
[2019-12-25] MEDS: MethylPREDNISolone 40 MG/ML VIAL IVP SCH (11:29)
[2019-12-25] MEDS: Aquaphor/Maalox 50 GM BOTTLE TP PRN ×2 (13:15→19:27)
[2019-12-25] MEDS: *HR* OxyCODONE Oral Soln 5 MG/5 ML UD.LIQ PO PRN ×2 (13:50→21:53)
[2019-12-25] MEDS: predniSONE 10 MG TABLET PO SCH (15:21)
[2019-12-25] MEDS: metroNIDAZOLE 500 MG TABLET PO SCH ×2 (15:21→20:14)
[2019-12-25] MEDS: Sulfamethoxazole/Trimeth DS 1 EACH TABLET PO SCH (20:15)
[2019-12-26] MEDS: Acetaminophen IV 1,000 MG/100 ML INFUS..BTL IVPB SCH ×5 (00:10→23:29)
[2019-12-26] MEDS: *HR* Heparin 5,000 UNIT/ML VIAL SQ SCH ×2 (06:52→16:13)
[2019-12-26] MEDS: Insulin LISPRO 300 UNITS/3 ML VIAL SQ SCH ×5 (06:54→20:32)
[2019-12-26] MEDS: Vancomycin Oral Soln 125 MG/2.5 ML UDC PO SCH ×4 (08:19→19:43)
[2019-12-26] MEDS: Metoprolol XL (24 HR) Succ 25 MG TAB.ER.24H PO SCH (08:19)
[2019-12-26] MEDS: Sulfamethoxazole/Trimeth DS 1 EACH TABLET PO SCH ×2 (08:20→19:43)
[2019-12-26] MEDS: Isosorbide MONOnitrate (24 HR) 30 MG TAB.ER.24H PO SCH (08:20)
[2019-12-26] MEDS: metroNIDAZOLE 500 MG TABLET PO SCH ×3 (08:20→19:43)
[2019-12-26] MEDS: Gabapentin 300 MG CAPSULE PO SCH ×3 (08:20→19:43)
[2019-12-26] MEDS: predniSONE 10 MG TABLET PO SCH (08:21)
[2019-12-26 08:45] LABS: Basophils % 0.1 %; Eosinophils # 0.1 K/mcL (0.0-0.6); Eosinophils % 0.3 %; Hematocrit 34.2 % (37.5-50.1); Hemoglobin 10.2 g/dL (12.9-16.9); Immature Granulocytes % 0.8 % (0-4); Lymphocytes # 1.7 K/mcL (0.6-4.6); Lymphocytes % 8.3 %; Mean Corpuscular HGB Conc 29.8 g/dL (31.6-35.5); Mean Corpuscular Hemoglobin 28.5 pg (28.0-33.3); Mean Corpuscular Volume 95.5 fL (83.0-100.0); Mean Platelet Volume 10.4 fL (9.4-12.4); Monocytes % 5.1 %; Platelet Count 286 K/mcL (140-400); Red Blood Count 3.58 M/mcL (4.19-5.50); Red Cell Distribution Width 19.4 % (11.5-14.5); Segmented Neutrophils % 85.4 %; White Blood Count 19.9 K/mcL (4.3-11.1)
[2019-12-26 09:03] LABS: BUN/Creatinine Ratio 20 (6-26); Blood Urea Nitrogen 11 mg/dL (8-23); Calcium 7.2 mg/dL (8.6-10.3); Carbon Dioxide 23 mEq/L (23-29); Chloride 112 mEq/L (98-107); Glucose 126 mg/dL (70-105); Osmolality,Calculated 281 (280-300); Potassium 3.6 mEq/L (3.5-5.1); Sodium 135 mEq/L (136-145); eGFR For African Americans > 60 (> 60); eGFR For Non-African Americans > 60 (> 60)
[2019-12-26] MEDS: *HR* OxyCODONE Oral Soln 5 MG/5 ML UD.LIQ PO PRN ×2 (13:51→19:53)
[2019-12-27 01:09] LABS: Basophils % 0.1 %; Eosinophils # 0.1 K/mcL (0.0-0.6); Eosinophils % 0.7 %; Hematocrit 30.4 % (37.5-50.1); Hemoglobin 9.3 g/dL (12.9-16.9); Immature Granulocytes % 0.8 % (0-4); Lymphocytes # 1.7 K/mcL (0.6-4.6); Lymphocytes % 8.4 %; Mean Corpuscular HGB Conc 30.6 g/dL (31.6-35.5); Mean Corpuscular Hemoglobin 28.9 pg (28.0-33.3); Mean Corpuscular Volume 94.4 fL (83.0-100.0); Mean Platelet Volume 9.1 fL (9.4-12.4); Monocytes # 1.6 K/mcL (0.0-1.3); Monocytes % 7.7 %; Neutrophils # 16.6 K/mcL (1.6-8.9); Platelet Count 389 K/mcL (140-400); Red Blood Count 3.22 M/mcL (4.19-5.50); Red Cell Distribution Width 19.3 % (11.5-14.5); Segmented Neutrophils % 82.3 %; White Blood Count 20.1 K/mcL (4.3-11.1)
[2019-12-27 01:43] LABS: BUN/Creatinine Ratio 21 (6-26); Blood Urea Nitrogen 13 mg/dL (8-23); Carbon Dioxide 25 mEq/L (23-29); Chloride 109 mEq/L (98-107); Glucose 148 mg/dL (70-105); Osmolality,Calculated 289 (280-300); Potassium 3.7 mEq/L (3.5-5.1); Sodium 138 mEq/L (136-145); eGFR For African Americans > 60 (> 60); eGFR For Non-African Americans > 60 (> 60)
[2019-12-27] MEDS: Acetaminophen IV 1,000 MG/100 ML INFUS..BTL IVPB SCH (06:18)
[2019-12-27] MEDS: *HR* Heparin 5,000 UNIT/ML VIAL SQ SCH (06:44)
[2019-12-27] MEDS: Sulfamethoxazole/Trimeth DS 1 EACH TABLET PO SCH (07:53)
[2019-12-27] MEDS: Isosorbide MONOnitrate (24 HR) 30 MG TAB.ER.24H PO SCH (07:53)
[2019-12-27] MEDS: metroNIDAZOLE 500 MG TABLET PO SCH (07:53)
[2019-12-27] MEDS: Vancomycin Oral Soln 125 MG/2.5 ML UDC PO SCH (07:54)
[2019-12-27] MEDS: Gabapentin 300 MG CAPSULE PO SCH (07:54)
[2019-12-27] MEDS: predniSONE 10 MG TABLET PO SCH (07:54)
[2019-12-27] MEDS: Insulin LISPRO 300 UNITS/3 ML VIAL SQ SCH (07:55)
[2019-12-27] MEDS ORDERED: Metoprolol XL (24 HR) Succ 25 MG TAB.ER.24H PO SCH (09:00)
[2019-12-27 11:20] VITALS: BP 132/82
== END 2019-12-27 12:11 | disposition other institution (70) | DRG 854 ==
LOC: 3ANU 08:12 → EMEROOARM 08:12 → SUATTDRO 11:37 → 3ANU 13:03 → 2NNU 12-18 04:07
PROVIDERS: ADMIT Pharmacist; ATTEND Family Medicine
PROC: ENDOCCB (2019-12-18 02:30)

== ENCOUNTER 2020-01-16 22:19 | Observation (INO) ==
[2020-01-17] MEDS ORDERED: Naloxone 0.4 MG/ML INJ IVP PRN (00:45)
[2020-01-17] MEDS ORDERED: Ondansetron 4 MG/2 ML VIAL IVP PRN (00:45)
[2020-01-17] MEDS: Ringers Solution, Lactated 1,000 ML IVC SCH ×2 (01:15→10:09)
[2020-01-17 01:35] LABS: Hematocrit 33.3 % (37.5-50.1); Mean Corpuscular Hemoglobin 27.4 pg (28.0-33.3); Mean Corpuscular Volume 91.2 fL (83.0-100.0); Mean Platelet Volume 8.9 fL (9.4-12.4); Platelet Count 462 K/mcL (140-400); Red Blood Count 3.65 M/mcL (4.19-5.50); Red Cell Distribution Width 16.1 % (11.5-14.5); White Blood Count 11.7 K/mcL (4.3-11.1)
[2020-01-17 01:49] LABS: Alanine Aminotransferase 10 Units/L (7-52); Albumin 2.3 g/dL (3.5-5.7); Albumin/Globulin Ratio 0.8 (1.1-2.2); Alkaline Phosphatase 69 Units/L (34-104); Aspartate Amino Transferase 11 Units/L (13-39); BUN/Creatinine Ratio 21 (6-26); Bilirubin,Total 0.3 mg/dL (0.3-1.0); Blood Urea Nitrogen 12 mg/dL (8-23); Calcium 7.4 mg/dL (8.6-10.3); Carbon Dioxide 21 mEq/L (23-29); Chloride 107 mEq/L (98-107); Glucose 88 mg/dL (70-105); Magnesium 1.6 mg/dL (1.6-2.6); Osmolality,Calculated 279 (280-300); Phosphorous 2.1 mg/dL (2.7-4.5); Potassium 3.4 mEq/L (3.5-5.1); Sodium 135 mEq/L (136-145); Total Protein 5.3 g/dL (6.4-8.9); eGFR For African Americans > 60 (> 60); eGFR For Non-African Americans > 60 (> 60)
[2020-01-17] MEDS ORDERED: D5% in Water 1,000 ML IVC PRN (02:03)
[2020-01-17] MEDS ORDERED: *HR* Dextrose 50 % in Water (Vial) 50 ML VIAL IVP PRN (02:03)
[2020-01-17] MEDS ORDERED: Dextrose Gel 15 GM/37.5 ML TUBE PO PRN ×2 (02:03)
[2020-01-17 02:08] LABS: Lymphocytes # 2.3 K/mcL (0.6-4.6); Monocytes # 0.7 K/mcL (0.0-1.3); Neutrophils # 8.7 K/mcL (1.6-8.9)
[2020-01-17 02:09] LABS: Reactive Lymphocytes Present (Not Present)
[2020-01-17] MEDS ORDERED: Potassium Phosphate 44 MEQ in 0.9 % Sodium Chloride 250 ML IVPB ONE (02:25)
[2020-01-17] MEDS: Piperacillin/Tazobactam 3.375 GM in 0.9 % Sodium Chloride Mini Bag 100 ML IVPB SCH ×3 (03:40→23:24)
[2020-01-17] MEDS: Insulin LISPRO 300 UNITS/3 ML VIAL SQ SCH ×3 (05:42→23:23)
[2020-01-17] MEDS: Metoprolol XL (24 HR) Succ 25 MG TAB.ER.24H PO SCH (10:11)
[2020-01-17] MEDS: Aspirin Enteric Coated 81 MG Tablet PO SCH (10:11)
[2020-01-17] MEDS: Vancomycin 1,500 MG/265 ML IV.SOLN IVPB SCH ×2 (10:12→23:24)
[2020-01-17] MEDS ORDERED: Aminoglycoside Consult 1 EACH MC ONE (15:18)
[2020-01-17] MEDS ORDERED: Insulin DETEMIR 100 UNIT/ML X5UNITS SQ SCH (21:00)
[2020-01-18] MEDS: Insulin LISPRO 300 UNITS/3 ML VIAL SQ SCH ×5 (00:24→20:44)
[2020-01-18 01:03] LABS: Basophils # 0.1 K/mcL (0.0-0.2); Basophils % 0.4 %; Eosinophils % 0.3 %; Hematocrit 34.7 % (37.5-50.1); Hemoglobin 10.4 g/dL (12.9-16.9); Immature Granulocytes % 0.4 % (0-4); Lymphocytes % 16.8 %; Mean Corpuscular Hemoglobin 26.6 pg (28.0-33.3); Mean Corpuscular Volume 88.7 fL (83.0-100.0); Mean Platelet Volume 8.5 fL (9.4-12.4); Monocytes % 8.5 %; Neutrophils # 8.9 K/mcL (1.6-8.9); Platelet Count 511 K/mcL (140-400); Red Blood Count 3.91 M/mcL (4.19-5.50); Red Cell Distribution Width 16.4 % (11.5-14.5); Segmented Neutrophils % 73.6 %; White Blood Count 12.1 K/mcL (4.3-11.1)
[2020-01-18 01:23] LABS: BUN/Creatinine Ratio 9 (6-26); Blood Urea Nitrogen 5 mg/dL (8-23); Calcium 7.5 mg/dL (8.6-10.3); Carbon Dioxide 22 mEq/L (23-29); Chloride 103 mEq/L (98-107); Glucose 76 mg/dL (70-105); Osmolality,Calculated 276 (280-300); Potassium 3.2 mEq/L (3.5-5.1); Sodium 135 mEq/L (136-145); eGFR For African Americans > 60 (> 60); eGFR For Non-African Americans > 60 (> 60)
[2020-01-18 01:32] LABS: Platelet Estimate Increased (Normal); Reactive Lymphocytes Present (Not Present)
[2020-01-18] MEDS: Piperacillin/Tazobactam 3.375 GM in 0.9 % Sodium Chloride Mini Bag 100 ML IVPB SCH (05:50)
[2020-01-18] MEDS: Aspirin Enteric Coated 81 MG Tablet PO SCH (07:43)
[2020-01-18] MEDS: Metoprolol XL (24 HR) Succ 25 MG TAB.ER.24H PO SCH (07:43)
[2020-01-18] MEDS ORDERED: Potassium Phosphate 44 MEQ in 0.9 % Sodium Chloride 250 ML IVPB ONE (07:49)
[2020-01-18] MEDS: Vancomycin 1,500 MG/265 ML IV.SOLN IVPB SCH (11:58)
[2020-01-18] MEDS ORDERED: Hydrocortisone Rectal 2.5% CRM 28 GM TUBE RC PRN (12:46)
[2020-01-18 14:21] LABS: Adenovirus F 40/41 PCR Not detected (Not detect); Astrovirus PCR Not detected (Not detect); Campylobacter by PCR Not detected (Not detect); Cryptosporidium by PCR Not detected (Not detect); Cyclospora cayetanensis PCR Not detected (Not detect); E. coli O157 by PCR Not detected (Not detect); Entamoeba histolytica PCR Not detected (Not detect); Enteroaggregative E.coli(EAEC) Not detected (Not detect); Enteropathogenic E.coli(EPEC) Not detected (Not detect); Enterotoxigenic E.coli (ETEC) Not detected (Not detect); Giardia lamblia PCR Not detected (Not detect); Norovirus GI/GII PCR Not detected (Not detect); Plesiomonas shigelloides PCR Not detected (Not detect); Rotavirus A PCR Not detected (Not detect); Salmonella PCR Not detected (Not detect); Sapovirus PCR Not detected (Not detect); Shig/EnteroinvasiveE coli EIEC Not detected (Not detect); Shigalike tox-prod E coli STEC Not detected (Not detect); Vibrio PCR Not detected (Not detect); Vibrio cholerae PCR Not detected (Not detect); Yersinia enterocolitica PCR Not detected (Not detect)
[2020-01-18] MEDS: Gabapentin 100 MG CAPSULE PO SCH ×2 (14:22→20:13)
[2020-01-18] MEDS: *HR* OxyCODONE/APAP 10/325 TABLET PO PRN ×2 (14:22→18:37)
[2020-01-18 14:25] LABS: C.difficile Toxin A/B Gene PCR DETECTED (Not detect)
[2020-01-18] MEDS: *HR* Metformin 500 MG TABLET PO SCH (17:41)
[2020-01-18] MEDS: Cholestyramine 4 GM POWD.PACK PO SCH (18:37)
[2020-01-18] MEDS: Vancomycin Oral Soln 125 MG/2.5 ML UDC PO SCH (20:13)
[2020-01-18] MEDS ORDERED: Insulin NPH/REG 70/30 100 UNIT/ML (x5UNIT) SQ SCH (21:00)
[2020-01-19] MEDS: *HR* OxyCODONE/APAP 10/325 TABLET PO PRN ×3 (01:51→16:39)
[2020-01-19 01:55] LABS: Hematocrit 33.7 % (37.5-50.1); Hemoglobin 10.2 g/dL (12.9-16.9); Mean Corpuscular HGB Conc 30.3 g/dL (31.6-35.5); Mean Corpuscular Hemoglobin 26.8 pg (28.0-33.3); Mean Corpuscular Volume 88.7 fL (83.0-100.0); Mean Platelet Volume 8.6 fL (9.4-12.4); Platelet Count 450 K/mcL (140-400); Red Cell Distribution Width 16.4 % (11.5-14.5); White Blood Count 7.9 K/mcL (4.3-11.1)
[2020-01-19 02:21] LABS: BUN/Creatinine Ratio 10 (6-26); Blood Urea Nitrogen 5 mg/dL (8-23); Calcium 7.5 mg/dL (8.6-10.3); Carbon Dioxide 22 mEq/L (23-29); Chloride 106 mEq/L (98-107); Glucose 77 mg/dL (70-105); Osmolality,Calculated 278 (280-300); Phosphorous 2.4 mg/dL (2.7-4.5); Potassium 3.2 mEq/L (3.5-5.1); Sodium 136 mEq/L (136-145); eGFR For African Americans > 60 (> 60); eGFR For Non-African Americans > 60 (> 60)
[2020-01-19] MEDS: *HR* Metformin 500 MG TABLET PO SCH ×2 (08:48→16:35)
[2020-01-19] MEDS: Insulin LISPRO 300 UNITS/3 ML VIAL SQ SCH ×4 (08:48→21:04)
[2020-01-19] MEDS: Gabapentin 100 MG CAPSULE PO SCH ×3 (08:52→19:57)
[2020-01-19] MEDS: Isosorbide MONOnitrate (24 HR) 30 MG TAB.ER.24H PO SCH (08:52)
[2020-01-19] MEDS: Metoprolol XL (24 HR) Succ 25 MG TAB.ER.24H PO SCH (08:53)
[2020-01-19] MEDS: Vancomycin Oral Soln 125 MG/2.5 ML UDC PO SCH ×4 (08:53→19:57)
[2020-01-19] MEDS: Aspirin Enteric Coated 81 MG Tablet PO SCH (08:53)
[2020-01-19] MEDS ORDERED: MESALAMINE 2.4 GM PO SCH (09:00)
[2020-01-19] MEDS: Cholestyramine 4 GM POWD.PACK PO SCH ×2 (13:18→19:09)
[2020-01-20] MEDS: *HR* OxyCODONE/APAP 10/325 TABLET PO PRN ×2 (02:17→17:19)
[2020-01-20] MEDS: Insulin LISPRO 300 UNITS/3 ML VIAL SQ SCH ×4 (07:53→20:15)
[2020-01-20] MEDS: *HR* Metformin 500 MG TABLET PO SCH ×2 (07:55→17:19)
[2020-01-20] MEDS: Metoprolol XL (24 HR) Succ 25 MG TAB.ER.24H PO SCH (07:55)
[2020-01-20] MEDS: Aspirin Enteric Coated 81 MG Tablet PO SCH (07:55)
[2020-01-20] MEDS: Isosorbide MONOnitrate (24 HR) 30 MG TAB.ER.24H PO SCH (07:55)
[2020-01-20] MEDS: Gabapentin 100 MG CAPSULE PO SCH ×3 (07:55→20:19)
[2020-01-20] MEDS: Vancomycin Oral Soln 125 MG/2.5 ML UDC PO SCH ×4 (07:56→20:19)
[2020-01-20 09:58] LABS: Hematocrit 34.1 % (37.5-50.1); Hemoglobin 10.2 g/dL (12.9-16.9); Mean Corpuscular HGB Conc 29.9 g/dL (31.6-35.5); Mean Corpuscular Hemoglobin 27.3 pg (28.0-33.3); Mean Corpuscular Volume 91.4 fL (83.0-100.0); Mean Platelet Volume 8.7 fL (9.4-12.4); Platelet Count 438 K/mcL (140-400); Red Blood Count 3.73 M/mcL (4.19-5.50); Red Cell Distribution Width 16.4 % (11.5-14.5); White Blood Count 8.5 K/mcL (4.3-11.1)
[2020-01-20 10:18] LABS: BUN/Creatinine Ratio 15 (6-26); Blood Urea Nitrogen 10 mg/dL (8-23); Calcium 7.3 mg/dL (8.6-10.3); Carbon Dioxide 24 mEq/L (23-29); Chloride 105 mEq/L (98-107); Glucose 96 mg/dL (70-105); Osmolality,Calculated 279 (280-300); Phosphorous 2.3 mg/dL (2.7-4.5); Potassium 3.6 mEq/L (3.5-5.1); Sodium 135 mEq/L (136-145); eGFR For African Americans > 60 (> 60); eGFR For Non-African Americans > 60 (> 60)
[2020-01-20] MEDS: Cholestyramine 4 GM POWD.PACK PO SCH ×2 (11:36→18:38)
[2020-01-21] MEDS: *HR* OxyCODONE/APAP 10/325 TABLET PO PRN ×3 (05:29→21:36)
[2020-01-21] MEDS: Insulin LISPRO 300 UNITS/3 ML VIAL SQ SCH ×4 (08:11→21:37)
[2020-01-21] MEDS: *HR* Metformin 500 MG TABLET PO SCH ×2 (08:13→17:04)
[2020-01-21] MEDS: Aspirin Enteric Coated 81 MG Tablet PO SCH (08:14)
[2020-01-21] MEDS: Metoprolol XL (24 HR) Succ 25 MG TAB.ER.24H PO SCH (08:14)
[2020-01-21] MEDS: Gabapentin 100 MG CAPSULE PO SCH ×3 (08:14→21:36)
[2020-01-21] MEDS: Isosorbide MONOnitrate (24 HR) 30 MG TAB.ER.24H PO SCH (08:14)
[2020-01-21] MEDS: Vancomycin Oral Soln 125 MG/2.5 ML UDC PO SCH ×4 (08:15→21:36)
[2020-01-21] MEDS: Cholestyramine 4 GM POWD.PACK PO SCH ×2 (13:49→18:10)
[2020-01-22] MEDS: *HR* OxyCODONE/APAP 10/325 TABLET PO PRN ×2 (04:44→09:31)
[2020-01-22] MEDS: Insulin LISPRO 300 UNITS/3 ML VIAL SQ SCH ×4 (08:21→21:53)
[2020-01-22] MEDS: Vancomycin Oral Soln 125 MG/2.5 ML UDC PO SCH ×4 (08:45→22:05)
[2020-01-22] MEDS: Gabapentin 100 MG CAPSULE PO SCH ×3 (08:45→22:04)
[2020-01-22] MEDS: Aspirin Enteric Coated 81 MG Tablet PO SCH (08:45)
[2020-01-22] MEDS: Isosorbide MONOnitrate (24 HR) 30 MG TAB.ER.24H PO SCH (08:47)
[2020-01-22] MEDS: Metoprolol XL (24 HR) Succ 25 MG TAB.ER.24H PO SCH (08:48)
[2020-01-22] MEDS: *HR* Metformin 500 MG TABLET PO SCH ×2 (08:52→18:11)
[2020-01-22] MEDS: Cholestyramine 4 GM POWD.PACK PO SCH ×2 (15:28→19:22)
[2020-01-23] MEDS: *HR* OxyCODONE/APAP 10/325 TABLET PO PRN ×2 (04:50→14:54)
[2020-01-23 06:17] LABS: BUN/Creatinine Ratio 12 (6-26); Blood Urea Nitrogen 7 mg/dL (8-23); Calcium 7.5 mg/dL (8.6-10.3); Carbon Dioxide 23 mEq/L (23-29); Chloride 104 mEq/L (98-107); Glucose 93 mg/dL (70-105); Osmolality,Calculated 278 (280-300); Potassium 3.6 mEq/L (3.5-5.1); Sodium 135 mEq/L (136-145); eGFR For African Americans > 60 (> 60); eGFR For Non-African Americans > 60 (> 60)
[2020-01-23] MEDS: Vancomycin Oral Soln 125 MG/2.5 ML UDC PO SCH ×2 (07:59→12:25)
[2020-01-23] MEDS: Isosorbide MONOnitrate (24 HR) 30 MG TAB.ER.24H PO SCH (07:59)
[2020-01-23] MEDS: *HR* Metformin 500 MG TABLET PO SCH (07:59)
[2020-01-23] MEDS: Aspirin Enteric Coated 81 MG Tablet PO SCH (07:59)
[2020-01-23] MEDS: Metoprolol XL (24 HR) Succ 25 MG TAB.ER.24H PO SCH (08:00)
[2020-01-23] MEDS: Gabapentin 100 MG CAPSULE PO SCH ×2 (08:00→14:54)
[2020-01-23] MEDS: Insulin LISPRO 300 UNITS/3 ML VIAL SQ SCH ×2 (08:04→13:04)
[2020-01-23 10:57] VITALS: BP 120/81
[2020-01-23] MEDS: Cholestyramine 4 GM POWD.PACK PO SCH (12:24)
== END 2020-01-23 15:19 ==
LOC: 3ANU → SUATTDRO 23:57
PROVIDERS: ADMIT Family Medicine; ATTEND Internal Medicine

== ENCOUNTER 2020-05-12 14:58 | Observation (INO) ==
[2020-05-12] MEDS ORDERED: Naloxone 0.4 MG/ML INJ IVP PRN (16:21)
[2020-05-12] MEDS ORDERED: Perflutren Lipid Microsphere 1.3 ML in 0.9 % Sodium Chloride 8.7 ML IVP PRN (16:22)
[2020-05-12] MEDS ORDERED: *HR* Dextrose 50 % in Water (Vial) 50 ML VIAL IVP PRN (16:25)
[2020-05-12] MEDS ORDERED: Dextrose Gel 15 GM/37.5 ML TUBE PO PRN ×2 (16:25)
[2020-05-12] MEDS ORDERED: D5% in Water 1,000 ML IVC PRN (16:25)
[2020-05-12] MEDS ORDERED: Aspirin 325 MG TABLET PO ONE (16:43)
[2020-05-12 18:21] LABS: Folate 11.3 ng/mL (3.0-16.0)
[2020-05-12] MEDS: Insulin LISPRO 300 UNITS/3 ML VIAL SQ SCH (19:05)
[2020-05-12] MEDS ORDERED: Insulin LISPRO 300 UNITS/3 ML VIAL SQ SCH (21:00)
[2020-05-13 06:25] LABS: Basophils # 0.1 K/mcL (0.0-0.2); Basophils % 1.3 %; Eosinophils # 0.8 K/mcL (0.0-0.6); Eosinophils % 7.9 %; Hemoglobin 13.6 g/dL (12.9-16.9); Immature Granulocytes % 0.3 % (0-4); Lymphocytes # 2.4 K/mcL (0.6-4.6); Lymphocytes % 24.3 %; Mean Corpuscular HGB Conc 30.9 g/dL (31.6-35.5); Mean Corpuscular Volume 90.7 fL (83.0-100.0); Monocytes # 0.8 K/mcL (0.0-1.3); Monocytes % 8.4 %; Neutrophils # 5.6 K/mcL (1.6-8.9); Platelet Count 271 K/mcL (140-400); Red Blood Count 4.85 M/mcL (4.19-5.50); Red Cell Distribution Width 13.9 % (11.5-14.5); Segmented Neutrophils % 57.8 %; White Blood Count 9.7 K/mcL (4.3-11.1)
[2020-05-13 06:46] LABS: BUN/Creatinine Ratio 16 (6-26); Blood Urea Nitrogen 15 mg/dL (8-23); Calcium 9.1 mg/dL (8.6-10.3); Carbon Dioxide 24 mEq/L (23-29); Chloride 108 mEq/L (98-107); Chol/HDL Ratio 2.9 (0-4.9); Cholesterol 107 mg/dL (< 200); Glucose 82 mg/dL (70-105); HDL Cholesterol 37 mg/dL (40-59); LDL Cholesterol,Calculated 54 mg/dL (< 100); Magnesium 1.8 mg/dL (1.6-2.6); Osmolality,Calculated 288 (280-300); Phosphorous 3.3 mg/dL (2.7-4.5); Potassium 3.9 mEq/L (3.5-5.1); Sodium 139 mEq/L (136-145); Triglycerides 80 mg/dL (< 150); eGFR For African Americans > 60 (> 60); eGFR For Non-African Americans > 60 (> 60)
[2020-05-13] MEDS: Insulin LISPRO 300 UNITS/3 ML VIAL SQ SCH ×2 (07:06→12:43)
[2020-05-13] MEDS ORDERED: Aspirin Enteric Coated 81 MG Tablet PO SCH (09:00)
[2020-05-13] MEDS ORDERED: MESALAMINE 2.4 GM PO SCH (09:00)
[2020-05-13] MEDS ORDERED: Metoprolol XL (24 HR) Succ 25 MG TAB.ER.24H PO SCH (09:00)
[2020-05-13] MEDS ORDERED: Isosorbide MONOnitrate (24 HR) 30 MG TAB.ER.24H PO SCH (09:00)
[2020-05-13] MEDS ORDERED: *HR* LORazepam 2 MG/ML VIAL ONE (11:07)
[2020-05-13] MEDS: *HR* LORazepam 2 MG/ML VIAL IVP ONE ×2 (11:08→12:03)
[2020-05-13 12:06] VITALS: BP 121/81
== END 2020-05-13 14:33 | disposition left against medical advice (07) ==
LOC: 3BNU → SUATTDRO 16:06
PROVIDERS: ADMIT Internal Medicine; ATTEND Internal Medicine

== ENCOUNTER 2020-09-04 16:07 | Inpatient (IN) ==
[2020-09-04 17:24] LABS: Basophils # 0.1 K/mcL (0.0-0.2); Basophils % 0.7 %; Eosinophils # 0.3 K/mcL (0.0-0.6); Eosinophils % 2.1 %; Hematocrit 33.5 % (37.5-50.1); Hemoglobin 9.6 g/dL (12.9-16.9); Immature Granulocytes % 0.4 % (0-4); Lymphocytes # 1.5 K/mcL (0.6-4.6); Lymphocytes % 12.4 %; Mean Corpuscular HGB Conc 28.7 g/dL (31.6-35.5); Mean Corpuscular Hemoglobin 22.8 pg (28.0-33.3); Mean Corpuscular Volume 79.6 fL (83.0-100.0); Mean Platelet Volume 8.2 fL (9.4-12.4); Monocytes # 1.2 K/mcL (0.0-1.3); Monocytes % 9.7 %; Platelet Count 693 K/mcL (140-400); Red Blood Count 4.21 M/mcL (4.19-5.50); Segmented Neutrophils % 74.7 %; White Blood Count 12.4 K/mcL (4.3-11.1)
[2020-09-04 17:25] LABS: Neutrophils # 9.3 K/mcL (1.6-8.9)
[2020-09-04 17:39] LABS: Alanine Aminotransferase 6 Units/L (7-52); Albumin 3.3 g/dL (3.5-5.7); Albumin/Globulin Ratio 0.9 (1.1-2.2); Alkaline Phosphatase 72 Units/L (34-104); Anisocytosis 1+ (Not Present); Aspartate Amino Transferase 12 Units/L (13-39); BUN/Creatinine Ratio 13 (6-26); Bilirubin,Total 0.4 mg/dL (0.3-1.0); Blood Urea Nitrogen 10 mg/dL (8-23); Calcium 8.7 mg/dL (8.6-10.3); Carbon Dioxide 23 mEq/L (23-29); Chloride 102 mEq/L (98-107); Globulin 3.7 g/dL (2.4-3.5); Glucose 107 mg/dL (70-105); Hypochromasia Present (Not Present); Lipase 24 Units/L (11-82); Macrocytosis Present (Not Present); Osmolality,Calculated 280 (280-300); Potassium 2.9 mEq/L (3.5-5.1); Sodium 135 mEq/L (136-145); eGFR For African Americans > 60 (> 60); eGFR For Non-African Americans > 60 (> 60)
[2020-09-04 17:40] LABS: Troponin I < 0.03 ng/mL (< 0.04)
[2020-09-04] MEDS ORDERED: Potassium Chloride 40 MEQ, Lidocaine 1% 2 ML in 0.9 % Sodium Chloride 500 ML IVPB ONE (17:48)
[2020-09-04] MEDS ORDERED: Isovue-370 500 ML BOTTLE IVP ONE (17:57)
[2020-09-04] MEDS ORDERED: 0.9 % Sodium Chloride 1,000 ML IVC ONE (19:50)
[2020-09-04] MEDS ORDERED: *HR* FentaNYL (PF) 100 MCG/2 ML VIAL IVP ONE (20:03)
[2020-09-04] MEDS ORDERED: MetroNIDAZOLE 500 MG/100 ML 500 MG/100 ML BAG IVPB ONE (20:43)
[2020-09-05 00:37] LABS: Adenovirus F 40/41 PCR Not detected (Not detect); Astrovirus PCR Not detected (Not detect); C.difficile Toxin A/B Gene PCR Not detected (Not detect); Campylobacter by PCR Not detected (Not detect); Cryptosporidium by PCR Not detected (Not detect); Cyclospora cayetanensis PCR Not detected (Not detect); E. coli O157 by PCR Not detected (Not detect); Entamoeba histolytica PCR Not detected (Not detect); Enteroaggregative E.coli(EAEC) Not detected (Not detect); Enteropathogenic E.coli(EPEC) Not detected (Not detect); Enterotoxigenic E.coli (ETEC) Not detected (Not detect); Giardia lamblia PCR Not detected (Not detect); Norovirus GI/GII PCR Not detected (Not detect); Plesiomonas shigelloides PCR Not detected (Not detect); Rotavirus A PCR Not detected (Not detect); Salmonella PCR Not detected (Not detect); Sapovirus PCR Not detected (Not detect); Shig/EnteroinvasiveE coli EIEC Not detected (Not detect); Shigalike tox-prod E coli STEC Not detected (Not detect); Vibrio PCR Not detected (Not detect); Vibrio cholerae PCR Not detected (Not detect); Yersinia enterocolitica PCR Not detected (Not detect)
[2020-09-05] MEDS ORDERED: *HR* FentaNYL (PF) 100 MCG/2 ML VIAL IVP ONE (02:36)
[2020-09-05] MEDS ORDERED: Ondansetron 4 MG/2 ML VIAL IVP PRN (05:05)
[2020-09-05] MEDS ORDERED: Naloxone 0.4 MG/ML INJ IVP PRN (05:05)
[2020-09-05] MEDS ORDERED: 0.9 % Sodium Chloride 1,000 ML IVC SCH (05:15)
[2020-09-05] MEDS: MetroNIDAZOLE 500 MG/100 ML 500 MG/100 ML BAG IVPB SCH ×3 (05:47→21:39)
[2020-09-05 06:03] LABS: Hematocrit 30.9 % (37.5-50.1); Hemoglobin 8.9 g/dL (12.9-16.9); Mean Corpuscular HGB Conc 28.8 g/dL (31.6-35.5); Mean Corpuscular Hemoglobin 23.1 pg (28.0-33.3); Mean Corpuscular Volume 80.1 fL (83.0-100.0); Mean Platelet Volume 8.3 fL (9.4-12.4); Platelet Count 622 K/mcL (140-400); Red Blood Count 3.86 M/mcL (4.19-5.50); Red Cell Distribution Width 17.1 % (11.5-14.5); White Blood Count 13.6 K/mcL (4.3-11.1)
[2020-09-05 06:20] LABS: BUN/Creatinine Ratio 11 (6-26); Blood Urea Nitrogen 8 mg/dL (8-23); Carbon Dioxide 23 mEq/L (23-29); Chloride 105 mEq/L (98-107); Glucose 107 mg/dL (70-105); Osmolality,Calculated 281 (280-300); Sodium 136 mEq/L (136-145); eGFR For African Americans > 60 (> 60); eGFR For Non-African Americans > 60 (> 60)
[2020-09-05] MEDS ORDERED: Potassium Chloride 20 MEQ, Lidocaine 1% 2 ML in 0.9 % Sodium Chloride 250 ML IVPB ONE (06:22)
[2020-09-05] MEDS ORDERED: Dextrose Gel 15 GM/37.5 ML TUBE PO PRN ×2 (06:26)
[2020-09-05] MEDS ORDERED: *HR* Dextrose 50 % in Water (Vial) 50 ML VIAL IVP PRN (06:26)
[2020-09-05] MEDS ORDERED: D5% in Water 1,000 ML IVC PRN (06:26)
[2020-09-05 06:33] LABS: Immature Reticulocyte % 25.2 % (11.0-38.0); Retculocyte # 0.04 M/mcL (0.05-0.10); Reticulocyte % 1.1 % (1.6-2.8)
[2020-09-05 08:42] LABS: Ferritin 19 ng/mL (20-250); Iron < 10 mcg/dL (65-175); Transferrin 181 mg/dL (203-362)
[2020-09-05] MEDS: Insulin LISPRO 300 UNITS/3 ML VIAL SUBQ SCH ×2 (14:05→18:39)
[2020-09-05] MEDS: Psyllium 1 PACKET POWD.PACK PO SCH (18:37)
[2020-09-06] MEDS: Insulin LISPRO 300 UNITS/3 ML VIAL SUBQ SCH ×4 (00:10→18:00)
[2020-09-06 04:39] LABS: Eosinophils % 7.2 %; Red Cell Distribution Width 17.2 % (11.5-14.5)
[2020-09-06 04:41] LABS: Basophils # 0.1 K/mcL (0.0-0.2); Basophils % 0.9 %; Eosinophils # 0.7 K/mcL (0.0-0.6); Hematocrit 28.6 % (37.5-50.1); Hemoglobin 8.2 g/dL (12.9-16.9); Immature Granulocytes % 0.5 % (0-4); Lymphocytes # 1.4 K/mcL (0.6-4.6); Lymphocytes % 14.9 %; Mean Corpuscular HGB Conc 28.7 g/dL (31.6-35.5); Mean Corpuscular Volume 80.3 fL (83.0-100.0); Mean Platelet Volume 8.3 fL (9.4-12.4); Monocytes # 0.8 K/mcL (0.0-1.3); Monocytes % 8.6 %; Neutrophils # 6.5 K/mcL (1.6-8.9); Platelet Count 565 K/mcL (140-400); Red Blood Count 3.56 M/mcL (4.19-5.50); Segmented Neutrophils % 67.9 %; White Blood Count 9.6 K/mcL (4.3-11.1)
[2020-09-06 05:00] LABS: BUN/Creatinine Ratio 7 (6-26); Blood Urea Nitrogen 5 mg/dL (8-23); Calcium 7.4 mg/dL (8.6-10.3); Carbon Dioxide 22 mEq/L (23-29); Chloride 107 mEq/L (98-107); Glucose 101 mg/dL (70-105); Magnesium 1.5 mg/dL (1.6-2.6); Osmolality,Calculated 277 (280-300); Phosphorous 2.2 mg/dL (2.7-4.5); Potassium 2.9 mEq/L (3.5-5.1); Sodium 135 mEq/L (136-145); eGFR For African Americans > 60 (> 60); eGFR For Non-African Americans > 60 (> 60)
[2020-09-06 05:04] LABS: Anisocytosis 1+ (Not Present); Hypochromasia Present (Not Present); Platelet Estimate Increased (Normal)
[2020-09-06] MEDS: MetroNIDAZOLE 500 MG/100 ML 500 MG/100 ML BAG IVPB SCH ×2 (05:34→14:31)
[2020-09-06] MEDS: Psyllium 1 PACKET POWD.PACK PO SCH ×2 (08:05→14:30)
[2020-09-06] MEDS ORDERED: Isosorbide MONOnitrate (24 HR) 30 MG TAB.ER.24H PO SCH (09:00)
[2020-09-06] MEDS ORDERED: Metoprolol XL (24 HR) Succ 25 MG TAB.ER.24H PO SCH (09:00)
[2020-09-06] MEDS ORDERED: Chloraseptic Spray 177 ML BOTTLE MM PRN (09:48)
[2020-09-06] MEDS ORDERED: Fluticasone Propionate Nasal 50 MCG/SPRAY BOTTLE NS SCH (10:00)
[2020-09-06] MEDS ORDERED: predniSONE 20 MG TABLET PO SCH ×2 (10:45)
[2020-09-06 15:38] VITALS: BP 112/66
== END 2020-09-06 22:31 | disposition short-term general hospital (02) | DRG 872 ==
LOC: 2ANU 16:07 → EMEROOARM 16:07 → 2ANU 09-05 04:31
PROVIDERS: ADMIT Student in an Organized Health Care Education/Training Program; ATTEND Student in an Organized Health Care Education/Training Program